=== PATIENT | female | born 1935 | race Caucasian/White ===

== ENCOUNTER 2017-04-23 11:50 | Inpatient (IN) | payer MEDICARE ==
[2017-04-23 12:36] LABS: Hemoglobin 14.4 g/dL (12.0-16.0); Mean Corpuscular HGB CONC 32.8 g/dL (32.0-36.0); Mean Corpuscular Hemoglobin 31.3 pg (27.0-31.0); Mean Corpuscular Volume 95.6 fl (81.0-99.0); Mean Platelet Volume 6.6 fL (7.4-10.4); Platelet Count 167 thou/uL (130-400); RBC Distribution Width 11.8 % (11.5-14.5); White Blood Cell (WBC) Count 4.8 thou/uL (4.8-10.8)
--- NOTE | 2017-04-23 12:37 | RAD ---
CHEST ONE VIEW: HISTORY: Dyspnea. Evaluate for pneumonia. COMPARISON: None. FINDINGS: Normal cardiac silhouette. The pulmonary vessels and hilum are normal. The costophrenic angles are clear. There is opacity of the right hemithorax, likely in the middle lobe. There is partial obscur ation of the right heart border. The right diaphragm is not obscured. Questionable nodule in the ri ght mid lung. Mild hyperinflation. No pneumothorax. IMPRESSION: 1. Right mid lung nodule. 2. Middle lobe infiltrate. Continued surveillance to ensure resolution. POS: [facility]
[2017-04-23 12:58] LABS: Band 47 % (5-11); Lymphocytes 14 % (21-51); MDiff Complete? YES; Metamyelocyte 11 % (0-0); Monocytes 2 % (0-10); Myelocyte 2 % (0-0); Neutrophil 22 % (42-75); PLT Morphology Comment Appears Adequate; Reactive Lymphocytes 2 % (0-10); Vacuoles MODERATE
[2017-04-23] MEDS ORDERED: Piperacillin/Tazobactam 4.5 GM in Sodium Chloride 0.9% 100 ML IVPB ONE (13:00)
[2017-04-23] MEDS ORDERED: Vancomycin HCl 1.25 GM in Sodium Chloride 0.9% 250 ML 250 ML IVPB SCH (13:00)
[2017-04-23 13:01] LABS: ALT (SGPT) 22 U/L (8-55); AST (SGOT) 31 U/L (5-34); Albumin 3.9 g/dL (3.4-4.8); Alkaline Phosphatase 60 U/L (40-150); Anion Gap 18 mmol/L (10-20); BUN (Urea Nitrogen) 17 mg/dL (9.8-20.1); Bilirubin, Total 0.5 mg/dL (0.2-1.2); CK (CPK) 280 U/L (29-168); Calc. Creatinine Clearance 0 mL/min (70-130); Calcium 9.1 mg/dL (7.8-10.44); Carbon Dioxide 18 mmol/L (23-31); Chloride 93 mmol/L (98-107); Estimated GFR-MDRD 65; Globulin 3.1 g/dL (2.4-3.5); Glucose 168 mg/dL (83-110); Potassium 3.6 mmol/L (3.5-5.1); Sodium 125 mmol/L (136-145)
[2017-04-23] MEDS ORDERED: Mag-Al 1200 mg/1200 mg/30 ML UDCUP PO PRN (14:08)
[2017-04-23] MEDS ORDERED: Senokot 8.6 MG TAB PO PRN (14:08)
[2017-04-23] MEDS ORDERED: Acetaminophen 325 MG TAB PO PRN (14:08)
[2017-04-23] MEDS ORDERED: Guaifenesin DM 100-10/5 ML UDCUP PO PRN (14:08)
--- NOTE | 2017-04-23 14:36 | CT ---
CT ANGIOGRAM OF CHEST: Date: 04/23/17 HISTORY: Tachycardia. Elevated D-Dimer. Patient has had a course of influenza and was on Tamiflu x10 days. COMPARISON: None. TECHNIQUE: CT angiogram of chest performed in the axial plane. Sagittal and coronal three-dimensional reformatte d images are submitted for interpretation. FINDINGS: No mediastinal mass, lymphadenopathy, or hematoma. Heart size is within normal limits. No pericardial effusion. The thoracic aorta and upper abdominal aorta have a normal caliber. No periaortic fat stra nding. Visualized upper solid organs are unremarkable. There are multifocal ground-glass nodules and ill-defined opacities throughout the lung parenchyma. T here is suspicion for possible multilobar malignancy versus atypical infection. A lifeline representatives nodu le in the right lung measures 0.8 cm. There is opacification and consolidation in the middle lobe, as well as the right lower lobe. The greatest degree of opacification is in the middle lobe, correspond ing to recent radiograph. There is no pneumothorax or pleural effusion. There are no lytic or blastic lesions in the osseous structures. Adequate contrast opacification of the pulmonary arterial system to the level of the segmental arteri es. No filling defect to suggest thromboembolism. IMPRESSION: 1. No evidence of pulmonary artery embolism to the level of the segmental arteries. 2. Consolidation in the middle lobe due to pneumonia. 3. Multifocal ground-glass opacities and nodules. Differential considerations include malignancy gem elham infection. Continued surveillance with short-term follow-up imaging in 4 weeks is recommended. POS: [facility]
--- NOTE | 2017-04-23 14:41 | HP ---
REASON FOR ADMISSION: Right lung pneumonia, sepsis. HISTORY OF PRESENT ILLNESS: The patient gives history of finishing the full course of Tamiflu yester day. She is still not feeling right. She went to [facility] [place] and was eval uated. She was given a course of steroids which is tapering along with an inhaler. She has been not feeling good for almost 10 days now. She has cough with expectoration of brown sputum. She normall y walks by herself. She has never smoked in her life. Does not have any lung issues including asthm a or COPD in the past. Her is in the hospital and is in a very critical situation and is laisha martínez admitted to hospice at present. PAST MEDICAL AND SURGICAL HISTORY: Hypertension, dyslipidemia, hypothyroidism, hysterectomy, catarac t surgery. CURRENT MEDICATIONS: She takes Premarin 0.3 mg p.o. daily, Synthroid 50 mcg p.o. daily, lisinopril w ith hydrochlorothiazide 10/12.5 mg p.o. daily, Crestor 5 mg p.o. daily, Naprosyn p.r.n. for pain. ALLERGIES: No known drug allergies. PERSONAL HISTORY: Does not abuse alcohol or drugs. No history of smoking. FAMILY HISTORY: Mother at the age of 93 years from old age. Father of cirrhosis in his 70 s and has had history of hepatitis. REVIEW OF SYSTEMS: The following complete review of systems was negative, unless otherwise mentioned in the HPI or below: Constitutional: Weight loss or gain, ability to conduct usual activities. Skin: Rash, itching. Eyes: Double vision, pain. ENT/Mouth: Nose bleeding, neck stiffness, pain, tenderness. Cardiovascular: Palpitations, dyspnea on exertion, orthopnea. Respiratory: Shortness of breath, wheezing, cough, hemoptysis, fever or night sweats. Gastrointestinal: Poor appetite, abdominal pain, heartburn, nausea, vomiting, constipation, or diarrhea. Genitourinary: Urgency, frequency, dysuria, nocturia. Musculoskeletal: Pain, swelling. Neurologic/Psychiatric: Anxiety, depression. Allergy/Immunologic: Skin rash, bleeding tendency. PHYSICAL EXAMINATION: GENERAL: The patient is an 82-year-old female who is in mild respiratory distress. VITAL SIGNS: Blood pressure 142/60, pulse 96 per minute, respiratory rate 30 per minute, temperature 99.1 degrees Fahrenheit, saturating 94% on room air. NECK: Supple, no elevated JVD. HEENT: Extraocular muscles intact. Pupils reacting to light. Oral cavity; mucous membranes are dry . No exudates or congestion. CARDIOVASCULAR: S1, S2 heard. Regular rhythm. RESPIRATORY: Air entry 1+ bilaterally. There is scattered rhonchi in the right infrascapular area. ABDOMEN: Soft, bowel sounds heard. No tenderness, rigidity or guarding. EXTREMITIES: No peripheral edema or calf tenderness. VASCULAR SYSTEM: Peripheral pulses 1+ bilateral. No ischemic ulcerations or gangrene. CENTRAL NERVOUS SYSTEM: No gross focal deficits seen. The patient is lethargic, but oriented well. PSYCHIATRIC: The patient's mood is a bit depressed, otherwise, no hallucinations or delusions. LABORATORY AND X-RAY FINDINGS: Chest x-ray done shows right middle lobe pneumonia. EKG done shows s inus rhythm at 98 beats per minute. There is frequent PACs seen. Sodium 125, serum bicarbonate 18, BUN 17, creatinine 0.8, glucose 168. Lactic acid is 2.6. Liver enzymes within normal limits. Album in is 3.9. White count of 4.8, H&H 14 and 44, platelet count 167 with 22% neutrophils and 47% bands with 14% lymphocytes and 11% metamyelocytes. CLINICAL IMPRESSION AND PLAN: The patient will be admitted to IMCU for acute respiratory failure wit h hypoxia and right lung pneumonia. The patient appears to have had a week of flu-like illness and h as completed Tamiflu and now likely has a bacterial infection with right lung pneumonia. Also, CBC s hows metamyelocytes with severe bandemia at present. We will place her on cefepime and Levaquin sonya g with normal saline at 80 mL per hour. DuoNebs along with Mucinex and Tessalon Perles. We will con tinue her Synthroid, Crestor, and hold the rest of her medications for now. Code status was discusse d with and her son at bedside and they want her to be full code for now. We will consult Dr. Beach in view of the patient likely to decompensate with history of a week of flu with current pneumonia a nd being frail at present.
[2017-04-23] MEDS ORDERED: ISOVUE-370 76%-LOCM 1 ML ONE (16:23)
--- NOTE | 2017-04-23 16:25 | CON ---
DATE OF CONSULTATION: 04/23/2017 CONSULTING PHYSICIAN: Dr. Ruiz. REASON FOR CONSULTATION: Pneumonia. HISTORY OF PRESENT ILLNESS: This is an 82-year-old female who presented to the [facility] yesterday because she was not feeling well. She was told she had influenza type B. Unfortunately , none of those records are in the computer for review at this time. She says she had just finished a full course of Tamiflu, which makes me believe. She is slightly confused in giving her history to me. She was extremely tachypneic in the emergency room, she was found to have a right middle lobe pn eumonia. She has been placed in the IMCU on broad-spectrum IV antibiotics. PAST MEDICAL HISTORY: 1. Hypertension. 2. Hyperlipidemia. 3. Hypothyroidism. PAST SURGICAL HISTORY: 1. Hysterectomy. 2. Cataract surgery. MEDICATIONS PRIOR TO ADMISSION: Premarin, Synthroid, lisinopril with hydrochlorothiazide, Crestor an d Naprosyn. ALLERGIES: None. SOCIAL HISTORY: Lifetime nonsmoker. Does not consume alcohol. FAMILY MEDICAL HISTORY: Remarkable for cirrhosis of liver in her father. REVIEW OF SYSTEMS: Difficult to ascertain because the patient is very confused at this time. PHYSICAL EXAMINATION: VITAL SIGNS: Temperature 98.9, pulse 98, respirations 36, O2 sat 96% on 3 liters and blood pressure 117/58. GENERAL: The patient is in mild respiratory distress with tachypnea. Neurologically, she moves all 4 extremities. She is alert to location and time. HEENT: Pupils react. Sclerae are anicteric. Oropharynx is dry. NECK: No adenopathy or JVD. LUNGS: She has harsh inspiratory crackles over her right chest. Left side has some crackles, but is more clear. CARDIOVASCULAR: S1 and S2, slightly tachycardic. ABDOMEN: Soft, nontender and nondistended. EXTREMITIES: Without clubbing, cyanosis or edema. LABORATORY DATA: White blood cell count 4.8, hematocrit 44, platelet count 167 with 22% neutrophils and 47% bands. D-dimer 3.54. Sodium 125, potassium 3.6, chloride 93, CO2 of 18, BUN 17, creatinine 0.8 and glucose 168. Lactate 2.6. CPK 280. Urinalysis was essentially negative. IMAGING DATA: Chest x-ray and CT were personally reviewed by me. CT shows a dense right middle lobe infiltrate. There are some early changes in the right lower lobe. ASSESSMENT: 1. Right middle lobe pneumonia. 2. Sepsis syndrome. 3. Acute hypoxic respiratory failure. PLAN: 1. The patient has been started on broad-spectrum IV antibiotics to include cefepime and Levaquin. Given recent history of fluid, I would also add vancomycin to this. 2. IV fluid resuscitation. 3. BiPAP as needed. 4. The patient remains extremely high risk for decompensation and may end up being intubated.
[2017-04-23 16:35] LABS: Lactic Acid 4.3 mmol/L (0.5-2.2)
[2017-04-23] MEDS: Sodium Chloride 0.9% 1,000 ML IV SCH ×2 (16:39→21:56)
[2017-04-23] MEDS: Benzonatate 100 MG CAP PO SCH ×2 (16:40→21:44)
[2017-04-23] MEDS ORDERED: Heparin 1,000 UNITS/ML VIAL ONE ×2 (17:10→17:11)
[2017-04-23] MEDS ORDERED: CCU Electrolyte Replacement 1 EACH FS ONE (17:15)
[2017-04-23] MEDS ORDERED: Midazolam HCl 2 mg/2 ml Vial SLOW IVP SCH (17:15)
[2017-04-23] MEDS ORDERED: Vecuronium 10 MG VIAL IVP PRN (17:15)
[2017-04-23] MEDS ORDERED: Sedation Protocol FS ONE (17:15)
[2017-04-23] MEDS ORDERED: CCU ELECTROLYTE REPLACEMENT PROTOCOL FS PRN (17:19)
[2017-04-23] MEDS ORDERED: Potassium Phosphate 9 MMOL in Sodium Chloride 0.9% 100 ML IVPB PRN (17:19)
[2017-04-23] MEDS ORDERED: Potassium Phosphate 12 MMOL in Sodium Chloride 0.9% 250 ML 250 ML IV PRN (17:19)
[2017-04-23] MEDS ORDERED: Fentanyl 20 MCG/ML 250 ML IVPB SCH (17:19)
[2017-04-23] MEDS ORDERED: Magnesium Oxide 400 MG TAB PO PRN ×2 (17:19)
[2017-04-23] MEDS ORDERED: Potassium Phosphate 15 MMOL in Sodium Chloride 0.9% 250 ML 250 ML IV PRN (17:19)
[2017-04-23] MEDS ORDERED: Morphine 2 MG/ML SYRINGE SLOW IVP PRN (17:19)
[2017-04-23] MEDS ORDERED: Potassium Chloride 20 MEQ TAB PO PRN (17:19)
[2017-04-23] MEDS ORDERED: Magnesium 2 GM/NS 0.9% 100 ML 2 GM in Premix Bag 1 BAG IVPB PRN (17:19)
[2017-04-23] MEDS ORDERED: Potassium Chloride 40 MEQ in Sodium Chloride 0.9% 250 ML 250 ML IVPB PRN (17:19)
[2017-04-23] MEDS ORDERED: DISCONTINUE PREVIOUS NARCOTIC PAIN MEDICATIONS AND BENZODIAZEPINES FS SCH (17:19)
[2017-04-23] MEDS ORDERED: Propofol 1,000 MG/100 ML VIAL IV ONE (17:39)
[2017-04-23] MEDS ORDERED: Midazolam HCl 2 mg/2 ml Vial ONE (17:43)
--- NOTE | 2017-04-23 18:32 | RAD ---
PORTABLE CHEST: Date: 04-23-17 Provided Clinical History: Cough. FINDINGS: Comparison is made with the study performed earlier the same date. Cardiac and mediastinal silhouette is unchanged in appearance. Interval placement of endotracheal tub e, the tip of which projects in the region of the thoracic inlet. Interval placement of enteric jessica ter, the tip of which is not visualized is below the diaphragm. Persistent consolidation at the right lung base. No pleural fluid or pneumothorax apparent. IMPRESSION: 1. Interval ET and enteric catheter placement as above. 2. Right basilar consolidation. POS: [facility]
[2017-04-23 18:45] LABS: Actual Bicarbonate (HCO3a) 17.7 mEq/L (22-26); Base Excess (BEa) -6.4 mEq/L (0 (+/-) 2.5); CO2 Tension 30.4 mmHg (35.0-45.0); Hematocrit-ABG 35.3 % (36.0-47.0); O2 Tension (PaO2) 81.7 mmHg (80.0-100.0); pH, Arterial 7.38 (7.35-7.45)
[2017-04-23 18:46] LABS: Calcium, Ionized 1.1 mmol/L (1.12-1.30)
[2017-04-23 18:47] LABS: Puncture Site R BRACHIAL
--- NOTE | 2017-04-23 20:08 | PRG ---
DATE OF SERVICE: 04/23/2017 About an hour after I saw the patient in consultation, she began decompensating on the intermediate c are unit. I was notified by the respiratory therapist, and then I immediately went back to see the p atient. She was breathing about 40 times a minute on BiPAP, clearly had become more altered in terms of mental status. Her [id number] was at the bedside. I spoke with the patient and her daughte r-in-law and told them that I thought we needed to be more aggressive. The patient was brought down to the CCU. She was given some Versed IV. I endotracheally intubated her with a 7.5 endotracheal tu be on the first attempt. She was placed on mechanical ventilation. Her followup x-ray demonstrated progression in the right middle lobe infiltrate. The patient will be kept on mechanical ventilation for several days. She will be kept sedated. She will continue receiving antibiotics and steroid. H er prognosis is guarded. The above encompassed 40 minutes critical care time.
[2017-04-23] MEDS ORDERED: Cefepime 1 GM in Sodium Chloride 0.9% 100 ML IVPB SCH (21:00)
[2017-04-23] MEDS ORDERED: Famotidine 20 MG TAB PO SCH (21:00)
[2017-04-23 21:29] LABS: Legionella Urinary Ag Negative (Negative); Strep pneumo Urine Ag NEGATIVE (NEGATIVE)
[2017-04-23] MEDS: Hydrocortisone Sod Succ/PF 100 mg/2 ml Vial IVP SCH ×2 (21:44→23:59)
[2017-04-23] MEDS: guaiFENesin ER 600 MG TAB PO SCH (21:44)
[2017-04-23] MEDS: Famotidine/PF 20 mg/2ml Vial SLOW IVP SCH (21:44)
[2017-04-23] MEDS: Cefepime 1 GM, Admixture Fee 1 EACH in Sterile Water 10 ML SLOW IVP SCH (22:03)
[2017-04-23] MEDS: Rosuvastatin 5 MG TAB PO SCH (22:03)
[2017-04-23] MEDS ORDERED: Hydrocortisone Sod Succ/PF 100 mg/2 ml Vial ONE (23:57)
[2017-04-24 04:35] LABS: Anion Gap 18 mmol/L (10-20); BUN (Urea Nitrogen) 14 mg/dL (9.8-20.1); Calc. Creatinine Clearance 48 mL/min (70-130); Calcium 7.5 mg/dL (7.8-10.44); Carbon Dioxide 14 mmol/L (23-31); Chloride 103 mmol/L (98-107); Estimated GFR-MDRD 62; Glucose 128 mg/dL (83-110); Potassium 2.9 mmol/L (3.5-5.1); Sodium 132 mmol/L (136-145)
[2017-04-24 04:51] LABS: Band 44 % (5-11); Hemoglobin 11.5 g/dL (12.0-16.0); Lymphocytes 23 % (21-51); MDiff Complete? YES; Mean Corpuscular HGB CONC 31.8 g/dL (32.0-36.0); Mean Corpuscular Hemoglobin 31.2 pg (27.0-31.0); Mean Platelet Volume 6.8 fL (7.4-10.4); Metamyelocyte 7 % (0-0); Monocytes 6 % (0-10); Myelocyte 5 % (0-0); Neutrophil 15 % (42-75); Platelet Count 126 thou/uL (130-400); RBC Distribution Width 11.9 % (11.5-14.5)
[2017-04-24] MEDS: Hydrocortisone Sod Succ/PF 100 mg/2 ml Vial IVP SCH ×4 (05:08→23:15)
[2017-04-24] MEDS ORDERED: Levothyroxine Sodium 50 MCG TAB PO SCH (06:00)
[2017-04-24 08:06] LABS: Actual Bicarbonate (HCO3a) 15.5 mEq/L (22-26); CO2 Tension 23.2 mmHg (35.0-45.0); Hematocrit-ABG 34.8 % (36.0-47.0); O2 Tension (PaO2) 144.6 mmHg (80.0-100.0); pH, Arterial 7.44 (7.35-7.45)
[2017-04-24 08:07] LABS: Calcium, Ionized 1.1 mmol/L (1.12-1.30)
[2017-04-24 08:08] LABS: Puncture Site RB
--- NOTE | 2017-04-24 08:14 | PRG ---
DATE OF SERVICE: 04/24/2017 Thirty-five minutes critical care time. The patient remains intubated on mechanical ventilation. She is deeply sedated. PHYSICAL EXAMINATION: VITAL SIGNS: Temperature 98.5, pulse 108, blood pressure 106/58. She is requiring no vasopressors, 24 hour intake 1370, output 820. HEENT: Sclera anicteric. Oropharynx clear. NECK: No JVD. LUNGS: Coarse rhonchi especially on the right. CARDIAC: S1, S2, slightly tachycardic without murmur. ABDOMEN: Soft, nontender, nondistended. EXTREMITIES: No clubbing, cyanosis, or edema. LABORATORY DATA: White blood cell count 2.0, hemoglobin 11.2, hematocrit 36.2, platelet count 126. ABG pending. Sodium 132, potassium 2.9, chloride 103, CO2 14, BUN 14, creatinine 0.8, glucose 128. So far cultures showed no growth to date. Chest x-ray shows a dense right middle lobe infiltrate. ASSESSMENT: 1. Post-influenza pneumonia. 2. Sepsis syndrome. 3. Acute respiratory failure requiring mechanical ventilation. 4. Severe metabolic acidosis. PLAN: 1. Will adjust IV fluids and add some bicarbonate. 2. Continue mechanical ventilation. 3. Continue broad spectrum IV antibiotics and consolidate antibiotics if cultures become positive. 4. Replace potassium. 5. Continue hydrocortisone, vitamin C and Thiamine. The patient's prognosis is guarded.
--- NOTE | 2017-04-24 08:28 | RAD ---
PORTABLE UPRIGHT FRONTAL CHEST RADIOGRAPH: Date: 04-24-17 Comparison: 04-23-17 History: Ventilated patient. FINDINGS: Endotracheal tube and nasogastric tube in place. No pneumothorax is evident. There is dense opacity in both lung bases, especially at the right. Heart and mediastinal contours ar e stable. IMPRESSION: Dense bibasilar opacity, right greater than left, suggesting infectious pneumonitis or aspiration. Th is primarily involves the right middle lobe. Follow up imaging to document resolution advised. POS: [facility]
[2017-04-24] MEDS: Sodium Bicarbonate 70 MEQ in Sodium Chloride 0.45% 1,000 ML IV SCH (08:34)
[2017-04-24] MEDS: Cefepime 1 GM, Admixture Fee 1 EACH in Sterile Water 10 ML SLOW IVP SCH ×2 (08:37→20:32)
[2017-04-24] MEDS: Famotidine/PF 20 mg/2ml Vial SLOW IVP SCH ×2 (08:37→20:22)
[2017-04-24] MEDS: Enoxaparin Sodium 40 MG/0.4 ML SYRINGE SC SCH (08:37)
[2017-04-24] MEDS: Benzonatate 100 MG CAP PO SCH ×3 (08:38→20:23)
[2017-04-24] MEDS: guaiFENesin ER 600 MG TAB PO SCH ×2 (09:08→20:23)
[2017-04-24 09:28] LABS: Potassium 3.9 mmol/L (3.5-5.1)
--- NOTE | 2017-04-24 13:55 | PDOC.PN ---
- Subjective Encounter Start Date: 04/24/17 Encounter Start Time: 07:00 Subjective: on vent, sedated - Objective Resuscitation Status: Resuscitation Status FULL:Full Resuscitation MAR Reviewed: Yes Vital Signs & Weight: Vital Signs (12 hours) Temp Pulse Resp BP Pulse Ox 04/24/17 13:25 99 99/53 L 04/24/17 12:00 98.9 F 18 04/24/17 11:04 107 H 102/64 04/24/17 10:00 30 H 04/24/17 08:00 100.4 F H 102 H 26 H 99 04/24/17 07:47 102 H 101/56 L 04/24/17 04:00 98.5 F 25 H 04/24/17 02:51 105 H 107/56 L Weight Admit Weight 132 lb Weight 132 lb 14.4 oz Most Recent Monitor Data Heart Rate from ECG 99 NIBP 99/53 NIBP BP-Mean 68 Respiration from ECG 22 SpO2 98 I&O: 04/23/17 04/24/17 04/25/17 06:59 06:59 06:59 Intake Total 1379.6 Output Total 820 212 Balance 559.6 -212 Result Diagrams: 04/24/17 03:42 04/24/17 08:48 Phys Exam - Physical Examination HEENT: sclera anicteric dry mucosa Neck: no JVD, supple Respiratory: no wheezing, no rales rhonchi+ Cardiovascular: RRR, no significant murmur Gastrointestinal: soft, no distention, positive bowel sounds Musculoskeletal: no edema, pulses present Neurological: non-focal, moves all 4 limbs Dx/Plan (1) Acute respiratory failure with hypoxia Code(s): J96.01 - ACUTE RESPIRATORY FAILURE WITH HYPOXIA Status: Acute (2) Pneumonia Code(s): J18.9 - PNEUMONIA, UNSPECIFIED ORGANISM Status: Acute Qualifiers: Pneumonia type: due to unspecified organism Laterality: bilateral (3) Sepsis Code(s): A41.9 - SEPSIS, UNSPECIFIED ORGANISM Status: Acute Qualifiers: Sepsis type: sepsis due to unspecified organism Qualified Code(s): A41.9 - Sepsis, unspecified organism (4) HTN (hypertension) Code(s): I10 - ESSENTIAL (PRIMARY) HYPERTENSION Status: Chronic Qualifiers: Hypertension type: essential hypertension Qualified Code(s): I10 - Essential (primary) hypertension (5) Hypothyroidism Code(s): E03.9 - HYPOTHYROIDISM, UNSPECIFIED Status: Chronic Qualifiers: Hypothyroidism type: unspecified Qualified Code(s): E03.9 - Hypothyroidism , unspecified (6) Dyslipidemia Code(s): E78.5 - HYPERLIPIDEMIA, UNSPECIFIED Status: Chronic - Plan is on vanc, cefepime and levaquin -: nebs, gentle iv hydration -: hydrocortisone q6h -: replace electrolytes -: will f/u, her last evening per staff (pt not aware) * . Review of Systems - Medications/Allergies Allergies/Adverse Reactions: Allergies Allergy/AdvReac Type Severity Reaction Status Date / Time No Known Allergies Allergy Verified 04/23/17 15:11 Medications: Current Medications Acetaminophen (Tylenol) 650 mg PO Q4H PRN PRN Reason: Headache/Fever or Pain Al Hydroxide/Mg Hydroxide (Maalox) 30 ml PO Q6H PRN PRN Reason: Heartburn or Indigestion Albuterol/Ipratropium (Duoneb) 3 ml NEB [id number] [facility] Last Admin: 04/24/17 13:25 Dose: 3 ml Benzonatate (Tessalon) 100 mg PO TID [facility] Last Admin: 04/24/17 08:38 Dose: Not Given Enoxaparin Sodium (Lovenox) 40 mg SC 0900 [facility] Last Admin: 04/24/17 08:37 Dose: 40 mg Famotidine (Pepcid) 20 mg SLOW IVP BID [facility] Last Admin: 04/24/17 08:37 Dose: 20 mg Guaifenesin (Mucinex) 600 mg PO Q12HR [facility] Last Admin: 04/24/17 09:08 Dose: 600 mg Guaifenesin/Dextromethorphan (Robitussin Dm) 15 ml PO Q4H PRN PRN Reason: Cough Hydrocortisone Sodium Succinate (Solu-Cortef) 50 mg IVP Q6HR [facility] Stop: 04/30/17 18:01 Last Admin: 04/24/17 11:22 Dose: 50 mg Levofloxacin 500 mg/ Device 100 mls @ 100 mls/hr IVPB Q24HR [facility] Last Admin: 04/23/17 16:45 Dose: 100 mls Cefepime HCl 1 gm/Miscellaneous Medication 1 each/ Sterile Water 10 mls @ 120 mls/hr SLOW IVP Q12HR [facility] Last Admin: 04/24/17 08:37 Dose: 10 mls Vancomycin HCl 1 gm/ Device 200 mls @ 200 mls/hr IVPB 1500 MARVIN Ascorbic Acid 1,500 mg/ Sodium (Chloride) 53 mls @ 100 mls/hr IVPB Q6HR [facility] Stop: 04/27/17 18:01 Last Admin: 04/24/17 11:22 Dose: 53 mls Thiamine HCl 200 mg/ Sodium (Chloride) 52 mls @ 100 mls/hr IVPB Q12HR [facility] Stop: 04/27/17 21:01 Last Admin: 04/24/17 08:37 Dose: 52 mls Potassium Chloride 40 meq/ (Sodium Chloride) 270 mls @ 135 mls/hr IVPB ASDIR PRN PRN Reason: FOR SERUM K+ 2.5 - 3.5 Potassium Chloride 40 meq/ (Device) 100 mls @ 50 mls/hr IVPB ASDIR PRN PRN Reason: FOR SERUM K+ 2.5 - 3.5 Magnesium Sulfate 1 gm/ Sodium (Chloride) 102 mls @ 102 mls/hr IV PRN PRN PRN Reason: MAG LEVEL 1.4 - 2.0 Magnesium Sulfate 2 gm/ Device 100 mls @ 100 mls/hr IVPB ASDIR PRN PRN Reason: MAGNESIUM < 1.4 Potassium Phosphate 9 mmol/ (Sodium Chloride) 103 mls @ 25.75 mls/hr IVPB ASDIR PRN PRN Reason: Phosphate 1.0-1.8 Potassium Phosphate 12 mmol/ (Sodium Chloride) 254 mls @ 63.5 mls/hr IV ASDIR PRN PRN Reason: Serum phosphate 0.5-0.9 Potassium Phosphate 15 mmol/ (Sodium Chloride) 255 mls @ 63.75 mls/hr IV ASDIR PRN PRN Reason: Serum Phos < 0.5 Fentanyl (Fentanyl Cadd) 250 mls @ 0 mls/hr IVPB INF MARVIN; Titrate PRN Reason: Protocol Stop: 05/23/17 17:19 Fentanyl Citrate (Fentanyl Bolus) 250 mls @ 0 mls/hr IVPB PRN PRN; As Directed PRN Reason: Breakthrough pain Stop: 05/23/17 17:19 Sodium Bicarbonate 70 meq/ (Sodium Chloride) 1,070 mls @ 75 mls/hr IV .[id number] [facility] Last Admin: 04/24/17 08:34 Dose: 1,070 mls Lorazepam (Ativan) 2 mg SLOW IVP Q2H PRN PRN Reason: Anxiety to achieve Agee 2-3 Stop: 05/23/17 17:19 Magnesium Oxide (Magnesium Oxide) 400 mg PO BIDPRN PRN PRN Reason: FOR SERUM MAG 1.4 - 2.0 Magnesium Oxide (Magnesium Oxide) 800 mg PO PRN PRN PRN Reason: FOR SERUM MAG < 1.4 Miscellaneous Medication (Pharmacy To Dose) 1 each IVPB ONE PRN PRN Reason: Pharmacy to dose Stop: 05/23/17 15:45 Miscellaneous Medication (Phos-Nak) 1 pkt PO TIDPRN PRN PRN Reason: FOR PHOS LEVEL 1.0 - 1.8 Miscellaneous Medication (Phos-Nak) 2 pkt PO TIDPRN PRN PRN Reason: FOR PHOS LEVEL 0.5 - 1.0 Morphine Sulfate (Morphine) 2 mg SLOW IVP Q2H PRN PRN Reason: Breakthrough pain Stop: 05/23/17 17:19 Ccu Electrolyte (Replacement Protocol) 0 each FS PRN PRN PRN Reason: FOR ELECTROLYTE REPLACEMENT Discontinue Previous Narcotic Pain Medications And Benzodiazepines 1 each FS .ONE [facility] Stop: 05/23/17 17:19 Potassium Chloride (K-Dur) 40 meq PO ASDIR PRN PRN Reason: FOR SERUM K+ 2.5 - 3.5 Potassium Chloride (Klor-Con) 40 meq PER TUBE ASDIR PRN PRN Reason: FOR SERUM K+ 2.5-3.5 Last Admin: 04/24/17 04:51 Dose: 40 meq Propofol (Diprivan) 1,000 mg IV INF PRN; Protocol PRN Reason: TO ACHIEVE AGEE SCORE 2-3 Stop: 05/23/17 17:19 Rosuvastatin Calcium (Crestor) 5 mg PO HS [facility] Last Admin: 04/23/17 22:03 Dose: 5 mg Senna (Senokot) 2 tab PO HSPRN PRN PRN Reason: Constipation Vecuronium [place] (Norcuron) 10 mg IVP Q30MIN PRN PRN Reason: Agitation Last Admin: 04/23/17 17:15 Dose: 10 mg
[2017-04-24] MEDS: Propofol 1,000 MG/100 ML VIAL IV PRN (14:12)
[2017-04-24] MEDS ORDERED: Vancomycin HCl 1 GM in Premix Bag 1 BAG IVPB SCH (15:00)
[2017-04-24] MEDS ORDERED: Digoxin 0.5 MG/2 ML AMP SLOW IVP PRN (16:20)
[2017-04-24] MEDS ORDERED: Lactated Ringer's 1,000 ML IV SCH ×2 (16:30→20:15)
[2017-04-24 16:59] LABS: Lactic Acid 5.7 mmol/L (0.5-2.2)
[2017-04-24 17:00] LABS: Anion Gap 15 mmol/L (10-20); BUN (Urea Nitrogen) 16 mg/dL (9.8-20.1); Calc. Creatinine Clearance 47 mL/min (70-130); Calcium 7.5 mg/dL (7.8-10.44); Carbon Dioxide 14 mmol/L (23-31); Chloride 104 mmol/L (98-107); Estimated GFR-MDRD 61; Glucose 178 mg/dL (83-110); Magnesium 1.2 mg/dL (1.6-2.6); Phosphorus 2.1 mg/dL (2.3-4.7); Potassium 3.3 mmol/L (3.5-5.1); Sodium 130 mmol/L (136-145)
[2017-04-24] MEDS ORDERED: Amiodarone In Dextrose 200 ML IVPB SCH (18:15)
[2017-04-24] MEDS ORDERED: Magnesium 2 GM/NS 0.9% 100 ML 2 GM in Premix Bag 1 BAG IVPB SCH (18:15)
[2017-04-24] MEDS: Amiodarone HCl 450 MG, Admixture Fee 1 EACH in Dextrose 5% in Water 250 ML IVPB SCH ×3 (18:51)
[2017-04-24] MEDS: Rosuvastatin 5 MG TAB PO SCH (20:31)
[2017-04-24] MEDS ORDERED: Potassium Chloride 40 MEQ in Sodium Chloride 0.9% 500 ML IVPB SCH (22:30)
[2017-04-25] MEDS: Sodium Bicarbonate 70 MEQ in Sodium Chloride 0.45% 1,000 ML IV SCH ×2 (00:37→14:07)
[2017-04-25] MEDS: Amiodarone HCl 450 MG, Admixture Fee 1 EACH in Dextrose 5% in Water 250 ML IVPB SCH ×6 (02:25→19:37)
[2017-04-25] MEDS: Propofol 1,000 MG/100 ML VIAL IV PRN ×3 (04:20→23:54)
[2017-04-25 04:56] LABS: Anion Gap 14 mmol/L (10-20); BUN (Urea Nitrogen) 17 mg/dL (9.8-20.1); Calc. Creatinine Clearance 59 mL/min (70-130); Calcium 7.6 mg/dL (7.8-10.44); Carbon Dioxide 16 mmol/L (23-31); Chloride 106 mmol/L (98-107); Estimated GFR-MDRD 72; Glucose 194 mg/dL (83-110); Potassium 4.6 mmol/L (3.5-5.1); Sodium 131 mmol/L (136-145)
[2017-04-25] MEDS: Hydrocortisone Sod Succ/PF 100 mg/2 ml Vial IVP SCH ×4 (05:19→23:54)
[2017-04-25 05:34] LABS: Band 40 % (5-11); Hemoglobin 10.4 g/dL (12.0-16.0); Lymphocytes 6 % (21-51); MDiff Complete? YES; Mean Corpuscular HGB CONC 33.1 g/dL (32.0-36.0); Mean Corpuscular Hemoglobin 31.8 pg (27.0-31.0); Mean Platelet Volume 8.1 fL (7.4-10.4); Metamyelocyte 6 % (0-0); Monocytes 6 % (0-10); Myelocyte 4 % (0-0); Neutrophil 38 % (42-75); PLT Morphology Comment Appears Adequate; Platelet Count 137 thou/uL (130-400); Red Blood Cell (RBC) Count 3.27 mill/uL (4.20-5.40); White Blood Cell (WBC) Count 9.4 thou/uL (4.8-10.8)
[2017-04-25 06:46] LABS: Magnesium 2.9 mg/dL (1.6-2.6)
[2017-04-25 07:17] LABS: Actual Bicarbonate (HCO3a) 18.7 mEq/L (22-26); Base Excess (BEa) -3.8 mEq/L (0 (+/-) 2.5); CO2 Tension 25.8 mmHg (35.0-45.0); Hematocrit-ABG 31.4 % (36.0-47.0); Hemoglobin (Hb) 10.1 g/dL (12.0-16.0); O2 Tension (PaO2) 95.7 mmHg (80.0-100.0); pH, Arterial 7.48 (7.35-7.45)
[2017-04-25 07:18] LABS: Calcium, Ionized 1.1 mmol/L (1.12-1.30); Puncture Site RR
[2017-04-25] MEDS: Benzonatate 100 MG CAP PO SCH ×3 (08:55→21:02)
[2017-04-25] MEDS: Cefepime 1 GM, Admixture Fee 1 EACH in Sterile Water 10 ML SLOW IVP SCH ×2 (09:00→21:01)
[2017-04-25] MEDS: Famotidine/PF 20 mg/2ml Vial SLOW IVP SCH (09:00)
[2017-04-25] MEDS: Enoxaparin Sodium 40 MG/0.4 ML SYRINGE SC SCH (09:00)
[2017-04-25] MEDS: guaiFENesin ER 600 MG TAB PO SCH ×2 (09:01→21:01)
--- NOTE | 2017-04-25 09:09 | PRG ---
DATE OF SERVICE: 04/25/2017 Thirty-five minutes critical care time. SUBJECTIVE: The patient has done poorly overnight. She developed atrial fibrillation with rapid beata tricular response. She also has had intermittent problems with hypotension. PHYSICAL EXAMINATION: VITAL SIGNS: On exam, her temperature is 98.7, pulse 93, blood pressure 102/57, 24-hour intake 4584, output 1309, weight 142 pounds. NEUROLOGIC: The patient will wake up and shake her head. She does interact with the family that is in the room. HEENT: Remarkable for bruise over the middle of her forehead which is old. She has the oropharyngea l endotracheal tube and gastric tube in place. NECK: No adenopathy or JVD. LUNGS: She has coarse breath sounds bilaterally with dense crackles in the right base. CARDIAC: S1, S2, is now regular, but she is requiring an amiodarone drip. ABDOMEN: Soft, nontender. She is tolerating tube feeds. EXTREMITIES: Without clubbing, cyanosis, or edema. LABORATORY DATA: White blood cell count 9.4, hemoglobin 10.4, hematocrit 31.4, platelet count 137, p H 7.48, pCO2 of 25, pO2 of 95 that is on SIMV rate 14, tidal volume 500, PEEP 5, pressure support 10, FiO2 35%. Sodium 131, potassium 4.6, chloride 106, CO2 of 16, BUN 17, creatinine 0.7, glucose 194. Last lactate was 5.7, phosphorus 1.0, magnesium 2.9. Micro: The sputum is growing out Staphylococc us aureus. Chest x-ray shows dense right-sided infiltrate which is unchanged. ASSESSMENT: 1. Acute respiratory failure that is secondary to a Staphylococcal hospital acquired, post-influenza pneumonia. 2. Sepsis syndrome. 3. Hypophosphatemia. 4. Metabolic acidosis. 5. Prerenal azotemia. 6. Paroxysmal atrial fibrillation. 7. Continued lactic acidosis. PLAN: 1. I have adjusted the patient's ventilator settings to reduce her tidal volumes somewhat. She is o verbreathing the vent and therefore I do not think dropping the respiratory rate would do much to low er her pH. 2. Continue the IV half normal saline with bicarbonate. 3. Continue the amiodarone. 4. Cardiology consultation for management of the atrial fibrillation. 5. Check echocardiogram if that has not already been performed. 6. I updated the family at the bedside. 7. The patient's prognosis is guarded.
--- NOTE | 2017-04-25 09:24 | RAD ---
ONE VIEW CHEST: COMPARISON: 04/24/17. HISTORY: Respiratory distress. Ventilated patient. FINDINGS: Portable semiupright chest demonstrates endotracheal tube and nasogastric tube which are unchanged. Stable cardiac silhouette. Persistent interstitial and alveolar opacities in the right lung and left lung base. Degree opacification in the left lung base has slightly improved. Stable opacification in the right lung base. NO pneumothorax. IMPRESSION: Persistent bibasilar infiltrates. POS: [facility]
[2017-04-25 09:48] LABS: Lactic Acid 2.8 mmol/L (0.5-2.2)
--- NOTE | 2017-04-25 12:20 | PDOC.PN ---
- Subjective Encounter Start Date: 04/25/17 Encounter Start Time: 12:05 Subjective: on vent, mild sedation - Objective Resuscitation Status: Resuscitation Status FULL:Full Resuscitation MAR Reviewed: Yes Vital Signs & Weight: Vital Signs (12 hours) Temp Pulse Resp BP 04/25/17 11:24 102 H 111/63 04/25/17 08:02 94 108/61 04/25/17 08:00 98.8 F 30 H 04/25/17 06:00 26 H 04/25/17 04:00 98.7 F 26 H 04/25/17 01:52 30 H Weight Admit Weight 132 lb Weight 142 lb 13.753 oz Most Recent Monitor Data Heart Rate from ECG 100 NIBP 112/60 NIBP BP-Mean 70 Respiration from ECG 31 SpO2 98 I&O: 04/24/17 04/25/17 04/26/17 06:59 06:59 06:59 Intake Total 1379.6 4584 Output Total 820 1309 130 Balance 559.6 3275 -130 Result Diagrams: 04/25/17 04:20 04/25/17 04:20 Phys Exam - Physical Examination HEENT: PERRLA, sclera anicteric Neck: no JVD, supple Respiratory: no wheezing rhonchi+ Cardiovascular: no significant murmur, irregular Gastrointestinal: soft, non-tender, positive bowel sounds Musculoskeletal: no edema, pulses present Neurological: non-focal, moves all 4 limbs Dx/Plan (1) Acute respiratory failure with hypoxia Code(s): J96.01 - ACUTE RESPIRATORY FAILURE WITH HYPOXIA Status: Acute (2) Pneumonia Code(s): J18.9 - PNEUMONIA, UNSPECIFIED ORGANISM Status: Acute Qualifiers: Pneumonia type: due to methicillin-sensitive Staphylococcus aureus (MSSA) Laterality: bilateral (3) Sepsis Code(s): A41.9 - SEPSIS, UNSPECIFIED ORGANISM Status: Acute Qualifiers: Sepsis type: methicillin susceptible Staphylococcus aureus Qualified Code(s ): A41.01 - Sepsis due to Methicillin susceptible Staphylococcus aureus (4) HTN (hypertension) Code(s): I10 - ESSENTIAL (PRIMARY) HYPERTENSION Status: Chronic Qualifiers: Hypertension type: essential hypertension Qualified Code(s): I10 - Essential (primary) hypertension (5) Hypothyroidism Code(s): E03.9 - HYPOTHYROIDISM, UNSPECIFIED Status: Chronic Qualifiers: Hypothyroidism type: unspecified Qualified Code(s): E03.9 - Hypothyroidism , unspecified (6) Dyslipidemia Code(s): E78.5 - HYPERLIPIDEMIA, UNSPECIFIED Status: Chronic (7) Afib Code(s): I48.91 - UNSPECIFIED ATRIAL FIBRILLATION Status: Acute - Plan is on amiodarone drip -: cefepime and vanc, await final cs of sputum -: nebs, steroids iv, gentle iv hydration -: gave updates to daughter in law at bedside -: echo * . Review of Systems - Medications/Allergies Allergies/Adverse Reactions: Allergies Allergy/AdvReac Type Severity Reaction Status Date / Time No Known Allergies Allergy Verified 04/23/17 15:11 Medications: Current Medications Acetaminophen (Tylenol) 650 mg PO Q4H PRN PRN Reason: Headache/Fever or Pain Last Admin: 04/24/17 14:07 Dose: 650 mg Al Hydroxide/Mg Hydroxide (Maalox) 30 ml PO Q6H PRN PRN Reason: Heartburn or Indigestion Albuterol/Ipratropium (Duoneb) 3 ml NEB [id number] [facility] Last Admin: 04/25/17 08:02 Dose: 3 ml Benzonatate (Tessalon) 100 mg PO TID [facility] Last Admin: 04/25/17 08:55 Dose: Not Given Digoxin (Lanoxin) 0.25 mg SLOW IVP ONE PRN PRN Reason: Cardiac Arrythmia Stop: 04/25/17 16:21 Last Admin: 04/24/17 17:02 Dose: 0.25 mg Enoxaparin Sodium (Lovenox) 40 mg SC 0900 [facility] Last Admin: 04/25/17 09:00 Dose: 40 mg Famotidine (Pepcid) 20 mg PO BID [facility] Guaifenesin (Mucinex) 600 mg PO Q12HR [facility] Last Admin: 04/25/17 09:01 Dose: 600 mg Guaifenesin/Dextromethorphan (Robitussin Dm) 15 ml PO Q4H PRN PRN Reason: Cough Hydrocortisone Sodium Succinate (Solu-Cortef) 50 mg IVP Q6HR [facility] Stop: 04/30/17 18:01 Last Admin: 04/25/17 05:19 Dose: 50 mg Cefepime HCl 1 gm/Miscellaneous Medication 1 each/ Sterile Water 10 mls @ 120 mls/hr SLOW IVP Q12HR [facility] Last Admin: 04/25/17 09:00 Dose: 10 mls Vancomycin HCl 1 gm/ Device 200 mls @ 200 mls/hr IVPB 1500 [facility] Last Admin: 04/24/17 15:43 Dose: 200 mls Ascorbic Acid 1,500 mg/ Sodium (Chloride) 53 mls @ 100 mls/hr IVPB Q6HR [facility] Stop: 04/27/17 18:01 Last Admin: 04/25/17 05:19 Dose: 53 mls Thiamine HCl 200 mg/ Sodium (Chloride) 52 mls @ 100 mls/hr IVPB Q12HR [facility] Stop: 04/27/17 21:01 Last Admin: 04/25/17 09:01 Dose: 52 mls Potassium Chloride 40 meq/ (Sodium Chloride) 270 mls @ 135 mls/hr IVPB ASDIR PRN PRN Reason: FOR SERUM K+ 2.5 - 3.5 Potassium Chloride 40 meq/ (Device) 100 mls @ 50 mls/hr IVPB ASDIR PRN PRN Reason: FOR SERUM K+ 2.5 - 3.5 Magnesium Sulfate 1 gm/ Sodium (Chloride) 102 mls @ 102 mls/hr IV PRN PRN PRN Reason: MAG LEVEL 1.4 - 2.0 Magnesium Sulfate 2 gm/ Device 100 mls @ 100 mls/hr IVPB ASDIR PRN PRN Reason: MAGNESIUM < 1.4 Last Admin: 04/24/17 17:14 Dose: 100 mls Potassium Phosphate 9 mmol/ (Sodium Chloride) 103 mls @ 25.75 mls/hr IVPB ASDIR PRN PRN Reason: Phosphate 1.0-1.8 Potassium Phosphate 12 mmol/ (Sodium Chloride) 254 mls @ 63.5 mls/hr IV ASDIR PRN PRN Reason: Serum phosphate 0.5-0.9 Potassium Phosphate 15 mmol/ (Sodium Chloride) 255 mls @ 63.75 mls/hr IV ASDIR PRN PRN Reason: Serum Phos < 0.5 Fentanyl (Fentanyl Cadd) 250 mls @ 0 mls/hr IVPB INF MARVIN; Titrate PRN Reason: Protocol Stop: 05/23/17 17:19 Fentanyl Citrate (Fentanyl Bolus) 250 mls @ 0 mls/hr IVPB PRN PRN; As Directed PRN Reason: Breakthrough pain Stop: 05/23/17 17:19 Sodium Bicarbonate 70 meq/ (Sodium Chloride) 1,070 mls @ 75 mls/hr IV .[id number] [facility] Last Admin: 04/25/17 00:37 Dose: 1,070 mls Amiodarone HCl 450 mg/Miscellaneous Medication 1 each/ Dextrose/Water 259 mls @ 0 mls/hr IVPB INF MARVIN; As Directed PRN Reason: Protocol Last Admin: 04/25/17 02:25 Dose: 259 mls Lorazepam (Ativan) 2 mg SLOW IVP Q2H PRN PRN Reason: Anxiety to achieve Agee 2-3 Stop: 05/23/17 17:19 Magnesium Oxide (Magnesium Oxide) 400 mg PO BIDPRN PRN PRN Reason: FOR SERUM MAG 1.4 - 2.0 Magnesium Oxide (Magnesium Oxide) 800 mg PO PRN PRN PRN Reason: FOR SERUM MAG < 1.4 Miscellaneous Medication (Pharmacy To Dose) 1 each IVPB ONE PRN PRN Reason: Pharmacy to dose Stop: 05/23/17 15:45 Miscellaneous Medication (Phos-Nak) 1 pkt PO TIDPRN PRN PRN Reason: FOR PHOS LEVEL 1.0 - 1.8 Miscellaneous Medication (Phos-Nak) 2 pkt PO TIDPRN PRN PRN Reason: FOR PHOS LEVEL 0.5 - 1.0 Last Admin: 04/25/17 06:43 Dose: 2 pkt Morphine Sulfate (Morphine) 2 mg SLOW IVP Q2H PRN PRN Reason: Breakthrough pain Stop: 05/23/17 17:19 Ccu Electrolyte (Replacement Protocol) 0 each FS PRN PRN PRN Reason: FOR ELECTROLYTE REPLACEMENT Discontinue Previous Narcotic Pain Medications And Benzodiazepines 1 each FS .ONE [facility] Stop: 05/23/17 17:19 Potassium Chloride (K-Dur) 40 meq PO ASDIR PRN PRN Reason: FOR SERUM K+ 2.5 - 3.5 Potassium Chloride (Klor-Con) 40 meq PER TUBE ASDIR PRN PRN Reason: FOR SERUM K+ 2.5-3.5 Last Admin: 04/24/17 17:14 Dose: 40 meq Propofol (Diprivan) 1,000 mg IV INF PRN; Protocol PRN Reason: TO ACHIEVE AGEE SCORE 2-3 Stop: 05/23/17 17:19 Last Admin: 04/25/17 04:20 Dose: 1,000 mg Rosuvastatin Calcium (Crestor) 5 mg PO HS [facility] Last Admin: 04/24/17 20:31 Dose: 5 mg Senna (Senokot) 2 tab PO HSPRN PRN PRN Reason: Constipation Vecuronium Milligan (Norcuron) 10 mg IVP Q30MIN PRN PRN Reason: Agitation Last Admin: 04/23/17 17:15 Dose: 10 mg
[2017-04-25] MEDS: Lorazepam 2 MG/ML VIAL SLOW IVP PRN ×3 (17:18→23:53)
[2017-04-25 17:53] LABS: Vancomycin, Trough 6.3 ug/mL
[2017-04-25] MEDS: Vancomycin HCl 1 GM in Premix Bag 1 BAG IVPB SCH (21:00)
[2017-04-25] MEDS: Famotidine 20 MG TAB PO SCH (21:01)
[2017-04-25] MEDS: Rosuvastatin 5 MG TAB PO SCH (21:01)
--- NOTE | 2017-04-25 22:14 | CON ---
DATE OF CONSULTATION: 04/25/2017 INDICATION FOR CONSULTATION: An 82-year-old patient with new-onset atrial fibrillation with rapid ve ntricular response. HISTORY OF PRESENT ILLNESS: This is a very unfortunate 82-year-old female who has been sick for chrissy ral days and had been seen in the emergency room a couple of times at an outpatient facility and then was finally diagnosed with pneumonia after chest x-ray showed significant infiltrates on the left si de. She is now starting to get I believe bilateral pneumonia. She developed atrial fibrillation wit h rapid ventricular response, was started on amiodarone, it since converted back to sinus rhythm and has remained stable in sinus rhythm since that time. She has had no previous history of atrial fibri llation I am aware of. Her heart rate was into an atrial fibrillation; according to the family, it i s 150-160 beats per minute and she was hypotensive, appears that she may have had some sepsis. Since being in the hospital, she is being admitted, she was at home and became more and more short of pardeep th and the family had brought her back to the hospital. Otherwise, she has been doing quite well and apparently has been diagnosed with flu as well as pneumonia. PAST MEDICAL HISTORY: Significant for hypertension, hyperlipidemia, hypothyroidism. She has had cat aract surgery, hysterectomy. MEDICATIONS PRIOR TO ADMISSION: Included lisinopril/hydrochlorothiazide, Crestor, Naprosyn, Synthroi d, Premarin. ALLERGIES: None. SOCIAL HISTORY: She does not smoke. Has no alcohol use. Her a few days ago. FAMILY HISTORY: Positive for cirrhosis in her father, otherwise no early heart disease. REVIEW OF SYSTEMS: Unobtainable at this time. The patient remains on the ventilator. PHYSICAL EXAMINATION: GENERAL: Reveals an elderly female who is in no acute distress at this time. She is intubated and s edated, was given Ativan, I believe. VITAL SIGNS: Heart rate is 100 and she is in sinus rhythm. Blood pressure 104/60, respiratory rate is 31. O2 saturation 94%. HEENT: Shows head to be normocephalic, atraumatic. She does have evidence of a contusion of the fro ntal area after a fall recently at home where she hit her head on the floor and she has been sick, ot herwise it was unremarkable. CHEST: Has bilateral scattered rales and rhonchi. CARDIOVASCULAR: Exam reveals a regular rate and rhythm. Normal S1 and S2. I cannot hear an S3 nor an S4. ABDOMEN: Soft and nontender. Positive bowel sounds are present. No palpable masses. EXTREMITIES: Show no clubbing, cyanosis or edema. Pedal pulses are present. NEUROLOGIC: The patient remains sedated. LABORATORY DATA: Shows a WBC of 9.4 previous of 2.0, most likely associated with her sepsis. Hemogl obin 10.4. Her chemistries show potassium of 4.6, creatinine is 0.77. Does not see any cardiac enzy mes. Blood sugar is also elevated anywhere between 128 and 178. She has some lactic acidosis with a lactic acid of 4.3. This appears improved now, but is still 2.8, was as high as 5.7. Chest x-ray f rom today indicates what appears to be most likely a right-sided pneumonia with minimal changes on th e left. Her EKG shows a normal sinus rhythm with no acute changes. PRESENT MEDICATIONS: Include Digoxin, which is given on the one-time basis. She is on Lovenox, Pepc id 20 mg b.i.d. She is on decongestants in the form of guaifenesin nebulizer treatments. She is on levofloxacin, Ativan, magnesium. She has been given potassium for hypokalemia. She remains on propo fol drip. She is on Crestor. Thiamine has been given and vancomycin. She is also on IV amiodarone. I would continue this at this time. IMPRESSION: 1. New-onset atrial fibrillation with rapid ventricular response which has converted back to sinus r hythm with the use of amiodarone. I will continue this medication at this time. She is n.p.o. She has an NG tube in and remains on the ventilator. The rate is under reasonable control. We will cont inue the same medications. Can always add further digoxin as needed for rate control. I suspect she will improve the rate and once the infection is improved. 2. Pneumonia involving the right upper, mid and lower lobes. She will be continued on her medicatio ns. 3. Hypertension. Blood pressure is under very good control at this time. 4. Dyslipidemia. At this time, we will hold those medications. She can resume them once extubated. Further care of the patient will be determined by Dr. Giordano when he visits with the patient christin madrid
[2017-04-26] MEDS: Sodium Bicarbonate 70 MEQ in Sodium Chloride 0.45% 1,000 ML IV SCH (02:45)
[2017-04-26] MEDS: Hydrocortisone Sod Succ/PF 100 mg/2 ml Vial IVP SCH ×3 (05:44→17:56)
[2017-04-26] MEDS: Propofol 1,000 MG/100 ML VIAL IV PRN ×3 (05:44→17:57)
[2017-04-26 06:40] LABS: Anion Gap 14 mmol/L (10-20); BUN (Urea Nitrogen) 20 mg/dL (9.8-20.1); Calc. Creatinine Clearance 67 mL/min (70-130); Calcium 7.6 mg/dL (7.8-10.44); Carbon Dioxide 20 mmol/L (23-31); Chloride 104 mmol/L (98-107); Estimated GFR-MDRD 79; Glucose 151 mg/dL (83-110); Potassium 4.1 mmol/L (3.5-5.1); Sodium 134 mmol/L (136-145)
[2017-04-26 06:41] LABS: Lactic Acid 2.5 mmol/L (0.5-2.2)
[2017-04-26 06:48] LABS: Hemoglobin 10.5 g/dL (12.0-16.0); Mean Corpuscular HGB CONC 33.6 g/dL (32.0-36.0); Mean Corpuscular Hemoglobin 32.1 pg (27.0-31.0); Mean Corpuscular Volume 95.5 fl (81.0-99.0); Mean Platelet Volume 7.4 fL (7.4-10.4); Platelet Count 157 thou/uL (130-400); Red Blood Cell (RBC) Count 3.28 mill/uL (4.20-5.40)
[2017-04-26 07:31] LABS: Band 44 % (5-11); Lymphocytes 5 % (21-51); MDiff Complete? YES; Monocytes 4 % (0-10); Neutrophil 46 % (42-75); PLT Morphology Comment Appears Adequate; Reactive Lymphocytes 1 % (0-10); Toxic Granulation SLIGHT; Vacuoles SLIGHT
[2017-04-26 08:04] LABS: Actual Bicarbonate (HCO3a) 22.9 mEq/L (22-26); CO2 Tension 29.8 mmHg (35.0-45.0); O2 Tension (PaO2) 73.3 mmHg (80.0-100.0)
[2017-04-26 08:05] LABS: Hematocrit-ABG 21.4 % (36.0-47.0); Hemoglobin (Hb) 7.6 g/dL (12.0-16.0)
[2017-04-26 08:06] LABS: Puncture Site RRA
--- NOTE | 2017-04-26 08:06 | PRG ---
DATE OF SERVICE: 04/26/2017 Ms. Lei is currently intubated and sedated. Heart rate appears more stable. PHYSICAL EXAMINATION: VITAL SIGNS: Blood pressure 101/52, pulse 82, temperature 99.1. LUNGS: Rhonchi and rales bilaterally. CARDIAC: Regular rate and rhythm. ABDOMEN: Soft, nontender, nondistended. EXTREMITIES: No edema. NEURO: She is currently intubated and sedated. PERTINENT LABORATORY DATA: Hemoglobin 10.5, creatinine 0.7. IMPRESSION: 1. Atrial fibrillation. 2. Bilateral pneumonia. RECOMMENDATIONS: Add p.o. amiodarone to IV Cardizem to maintain sinus rhythm. She is back in sinu s now, but given underlying condition is likely to regress. Continue antibiotic therapy and vent sup port.
[2017-04-26] MEDS ORDERED: Furosemide 40 MG/4 ML VIAL SLOW IVP SCH (08:30)
--- NOTE | 2017-04-26 08:38 | PRG ---
DATE OF SERVICE: 04/26/2017 Thirty-five minutes critical care time. Ms. Lei remains intubated on mechanical ventilation. She will awaken when sedation is lightened. PHYSICAL EXAMINATION: VITAL SIGNS: On exam her temperature is 99.1 with a T-max of 99.1, pulse 80, blood pressure 100/66. She continues on an amiodarone drip. Total intake for 24 hours 4015, output 1710. HEENT: Unremarkable. Sclerae are anicteric. Pupils reactive. NECK: No adenopathy, no JVD. CHEST: Coarse rhonchi bilaterally. CARDIOVASCULAR: S1 and S2 now regular without murmur. ABDOMEN: Soft, nontender, nondistended. EXTREMITIES: No clubbing, cyanosis. She has trace edema. LABORATORY DATA: White blood cell count 11, hemoglobin 10, hematocrit 31.3, platelet count 157, pH 7 .50, pCO2 of 29, PO2 of 73 on SIMV rate 14, tidal volume 400, PEEP 5, pressure support 10, FiO2 30%. Sodium 134, potassium 4.1, chloride 104, CO2 20, BUN 20, creatinine 0.7, glucose 151. ASSESSMENT: 1. Acute respiratory failure requiring mechanical ventilation. This is secondary to methicillin-res istant Staphylococcus aureus pneumonia. 2. Sepsis syndrome. 3. Status post influenza. 4. Metabolic acidosis. 5. Paroxysmal atrial fibrillation. 6. Prerenal azotemia. 7. Improved lactic acidosis. RECOMMENDATIONS: 1. Continue mechanical ventilation at present settings. 2. Decrease the IV fluids and try to diurese the patient a little bit to see if we can get some of t he excess volume off. 3. I would anticipate her being on the ventilator for several more days and her prognosis remains gu arded. 4. I have communicated with the patient's daughter who is at the bedside.
[2017-04-26] MEDS: Vancomycin HCl 1 GM in Premix Bag 1 BAG IVPB SCH ×2 (09:00→20:09)
[2017-04-26] MEDS: Enoxaparin Sodium 40 MG/0.4 ML SYRINGE SC SCH (09:02)
[2017-04-26] MEDS: Benzonatate 100 MG CAP PO SCH ×3 (09:02→20:10)
[2017-04-26] MEDS: Amiodarone 200 MG TAB PO SCH ×2 (09:02→20:09)
[2017-04-26] MEDS: guaiFENesin ER 600 MG TAB PO SCH ×2 (09:03→20:10)
[2017-04-26] MEDS: Famotidine 20 MG TAB PO SCH ×2 (09:03→20:10)
[2017-04-26] MEDS: Lorazepam 2 MG/ML VIAL SLOW IVP PRN ×2 (09:12→11:21)
--- NOTE | 2017-04-26 09:18 | RAD ---
AP VIEW OF CHEST: Date: 04/26/16 INDICATION: Intubation. COMPARISON: Prior exam dated 04/25/17. FINDINGS: Stable right lower lobe pneumonia. Superimposed on chronic lung changes Gastric catheter and ET tube are unchanged. No pneumothorax is evident. IMPRESSION: Stable exam. POS: LUDIN
[2017-04-26] MEDS: Sodium Bicarbonate 50 MEQ in Sodium Chloride 0.45% 1,000 ML IV SCH (09:59)
--- NOTE | 2017-04-26 10:51 | SPC ---
ULTRASOUND AND RADIOGRAPHIC PICC LINE PLACEMENT: COMPARISON: None. FINDINGS: The attempt for a PICC line was done at the patient's bedside. The right arm was prepped and draped in normal sterile fashion. The only vein patent on the left was a brachial vein. The brachial vein was accessed using a micropuncture set. A wire was placed and advanced to the level of the axilla fo r which there was an occlusion or stenosis for which a wire could not be passed. IMPRESSION: The wire was unable to be passed through the left axillary vein stenosis or thrombosis. The right ar m will be attempted 04/26/17 for which the midline will be exchanged over a wire for a PICC line. The right arm was already checked for patent veins and there are patent right brachial veins on the righ t arm. POS: BEL
--- NOTE | 2017-04-26 12:33 | PDOC.PN ---
- Subjective Encounter Start Date: 04/26/17 Encounter Start Time: 11:30 Subjective: on vent, sedated -: is breathing around 30/min -: daughter in law at bedside - Objective Resuscitation Status: Resuscitation Status FULL:Full Resuscitation MAR Reviewed: Yes Vital Signs & Weight: Vital Signs (12 hours) Temp Pulse Resp BP Pulse Ox 04/26/17 12:14 86 117/88 04/26/17 07:47 82 101/52 L 04/26/17 07:14 99.1 F 84 34 H 94 L 04/26/17 06:00 34 H 04/26/17 04:00 99.1 F 32 H 04/26/17 02:00 32 H Weight Admit Weight 132 lb Weight 150 lb 9.211 oz Most Recent Monitor Data Heart Rate from ECG 86 NIBP 117/68 NIBP BP-Mean 91 Respiration from ECG 35 SpO2 95 I&O: 04/25/17 04/26/17 04/27/17 06:59 06:59 06:59 Intake Total 4584 4015 Output Total 1309 1710 50 Balance 3275 2305 -50 Result Diagrams: 04/26/17 05:35 04/26/17 05:35 Phys Exam - Physical Examination HEENT: PERRLA, moist MMs Neck: no JVD, supple Respiratory: no rales coarse rales+ b/l Cardiovascular: no significant murmur, irregular Gastrointestinal: soft, non-tender, positive bowel sounds Musculoskeletal: pulses present, edema present Neurological: non-focal, moves all 4 limbs Dx/Plan (1) Acute respiratory failure with hypoxia Code(s): J96.01 - ACUTE RESPIRATORY FAILURE WITH HYPOXIA Status: Acute (2) Pneumonia Code(s): J18.9 - PNEUMONIA, UNSPECIFIED ORGANISM Status: Acute Qualifiers: Pneumonia type: due to methicillin-resistant Staphylococcus aureus (MRSA) Laterality: bilateral (3) Sepsis Code(s): A41.9 - SEPSIS, UNSPECIFIED ORGANISM Status: Acute Qualifiers: Sepsis type: methicillin susceptible Staphylococcus aureus Qualified Code(s ): A41.01 - Sepsis due to Methicillin susceptible Staphylococcus aureus (4) HTN (hypertension) Code(s): I10 - ESSENTIAL (PRIMARY) HYPERTENSION Status: Chronic Qualifiers: Hypertension type: essential hypertension Qualified Code(s): I10 - Essential (primary) hypertension (5) Hypothyroidism Code(s): E03.9 - HYPOTHYROIDISM, UNSPECIFIED Status: Chronic Qualifiers: Hypothyroidism type: unspecified Qualified Code(s): E03.9 - Hypothyroidism , unspecified (6) Dyslipidemia Code(s): E78.5 - HYPERLIPIDEMIA, UNSPECIFIED Status: Chronic (7) Afib Code(s): I48.91 - UNSPECIFIED ATRIAL FIBRILLATION Status: Acute (8) Chronic anemia Code(s): D64.9 - ANEMIA, UNSPECIFIED Status: Chronic - Plan is on vanc and levaquin -: nebs, solucortef 50mg q6h -: amiodarone oral -: deconditioning -: family aware of guarded prognosis * . Review of Systems - Medications/Allergies Allergies/Adverse Reactions: Allergies Allergy/AdvReac Type Severity Reaction Status Date / Time No Known Allergies Allergy Verified 04/23/17 15:11 Medications: Current Medications Acetaminophen (Tylenol) 650 mg PO Q4H PRN PRN Reason: Headache/Fever or Pain Last Admin: 04/24/17 14:07 Dose: 650 mg Al Hydroxide/Mg Hydroxide (Maalox) 30 ml PO Q6H PRN PRN Reason: Heartburn or Indigestion Albuterol/Ipratropium (Duoneb) 3 ml NEB [id number] [facility] Last Admin: 04/26/17 07:46 Dose: 3 ml Amiodarone HCl (Cordarone) 400 mg PO BID [facility] Last Admin: 04/26/17 09:02 Dose: 400 mg Benzonatate (Tessalon) 100 mg PO TID [facility] Last Admin: 04/26/17 09:02 Dose: 100 mg Enoxaparin Sodium (Lovenox) 40 mg SC 0900 [facility] Last Admin: 04/26/17 09:02 Dose: 40 mg Famotidine (Pepcid) 20 mg PO BID [facility] Last Admin: 04/26/17 09:03 Dose: 20 mg Guaifenesin (Mucinex) 600 mg PO Q12HR [facility] Last Admin: 04/26/17 09:03 Dose: 600 mg Guaifenesin/Dextromethorphan (Robitussin Dm) 15 ml PO Q4H PRN PRN Reason: Cough Hydrocortisone Sodium Succinate (Solu-Cortef) 50 mg IVP Q6HR [facility] Stop: 04/30/17 18:01 Last Admin: 04/26/17 11:23 Dose: 50 mg Ascorbic Acid 1,500 mg/ Sodium (Chloride) 53 mls @ 100 mls/hr IVPB Q6HR [facility] Stop: 04/27/17 18:01 Last Admin: 04/26/17 11:52 Dose: 53 mls Thiamine HCl 200 mg/ Sodium (Chloride) 52 mls @ 100 mls/hr IVPB Q12HR [facility] Stop: 04/27/17 21:01 Last Admin: 04/26/17 09:03 Dose: 52 mls Potassium Chloride 40 meq/ (Sodium Chloride) 270 mls @ 135 mls/hr IVPB ASDIR PRN PRN Reason: FOR SERUM K+ 2.5 - 3.5 Potassium Chloride 40 meq/ (Device) 100 mls @ 50 mls/hr IVPB ASDIR PRN PRN Reason: FOR SERUM K+ 2.5 - 3.5 Magnesium Sulfate 1 gm/ Sodium (Chloride) 102 mls @ 102 mls/hr IV PRN PRN PRN Reason: MAG LEVEL 1.4 - 2.0 Magnesium Sulfate 2 gm/ Device 100 mls @ 100 mls/hr IVPB ASDIR PRN PRN Reason: MAGNESIUM < 1.4 Last Admin: 04/24/17 17:14 Dose: 100 mls Potassium Phosphate 9 mmol/ (Sodium Chloride) 103 mls @ 25.75 mls/hr IVPB ASDIR PRN PRN Reason: Phosphate 1.0-1.8 Potassium Phosphate 12 mmol/ (Sodium Chloride) 254 mls @ 63.5 mls/hr IV ASDIR PRN PRN Reason: Serum phosphate 0.5-0.9 Potassium Phosphate 15 mmol/ (Sodium Chloride) 255 mls @ 63.75 mls/hr IV ASDIR PRN PRN Reason: Serum Phos < 0.5 Fentanyl (Fentanyl Cadd) 250 mls @ 0 mls/hr IVPB INF [facility]; Titrate PRN Reason: Protocol Stop: 05/23/17 17:19 Fentanyl Citrate (Fentanyl Bolus) 250 mls @ 0 mls/hr IVPB PRN PRN; As Directed PRN Reason: Breakthrough pain Stop: 05/23/17 17:19 Amiodarone HCl 450 mg/Miscellaneous Medication 1 each/ Dextrose/Water 259 mls @ 0 mls/hr IVPB INF [facility]VIN; As Directed PRN Reason: Protocol Last Admin: 04/25/17 19:37 Dose: 259 mls Vancomycin HCl 1 gm/ Device 200 mls @ 200 mls/hr IVPB 0800,2000 [facility] Last Admin: 04/26/17 09:00 Dose: 200 mls Sodium Bicarbonate 50 meq/ (Sodium Chloride) 1,050 mls @ 75 mls/hr IV .Q14H [facility] Last Admin: 04/26/17 09:59 Dose: 1,050 mls Levofloxacin 500 mg/ Device 100 mls @ 100 mls/hr IVPB 1000 [facility] Last Admin: 04/26/17 10:11 Dose: 100 mls Lorazepam (Ativan) 2 mg SLOW IVP Q2H PRN PRN Reason: Anxiety to achieve Agee 2-3 Stop: 05/23/17 17:19 Last Admin: 04/26/17 11:21 Dose: 2 mg Magnesium Oxide (Magnesium Oxide) 400 mg PO BIDPRN PRN PRN Reason: FOR SERUM MAG 1.4 - 2.0 Magnesium Oxide (Magnesium Oxide) 800 mg PO PRN PRN PRN Reason: FOR SERUM MAG < 1.4 Miscellaneous Medication (Pharmacy To Dose) 1 each IVPB ONE PRN PRN Reason: Pharmacy to dose Stop: 05/23/17 15:45 Miscellaneous Medication (Phos-Nak) 1 pkt PO TIDPRN PRN PRN Reason: FOR PHOS LEVEL 1.0 - 1.8 Miscellaneous Medication (Phos-Nak) 2 pkt PO TIDPRN PRN PRN Reason: FOR PHOS LEVEL 0.5 - 1.0 Last Admin: 04/25/17 06:43 Dose: 2 pkt Morphine Sulfate (Morphine) 2 mg SLOW IVP Q2H PRN PRN Reason: Breakthrough pain Stop: 05/23/17 17:19 Ccu Electrolyte (Replacement Protocol) 0 each FS PRN PRN PRN Reason: FOR ELECTROLYTE REPLACEMENT Discontinue Previous Narcotic Pain Medications And Benzodiazepines 1 each FS .ONE [facility] Stop: 05/23/17 17:19 Potassium Chloride (K-Dur) 40 meq PO ASDIR PRN PRN Reason: FOR SERUM K+ 2.5 - 3.5 Potassium Chloride (Klor-Con) 40 meq PER TUBE ASDIR PRN PRN Reason: FOR SERUM K+ 2.5-3.5 Last Admin: 04/24/17 17:14 Dose: 40 meq Propofol (Diprivan) 1,000 mg IV INF PRN; Protocol PRN Reason: TO ACHIEVE AGEE SCORE 2-3 Stop: 05/23/17 17:19 Last Admin: 04/26/17 10:39 Dose: 1,000 mg Rosuvastatin Calcium (Crestor) 5 mg PO HS [facility] Last Admin: 04/25/17 21:01 Dose: 5 mg Senna (Senokot) 2 tab PO HSPRN PRN PRN Reason: Constipation
--- NOTE | 2017-04-26 13:01 | SPC ---
RIGHT UPPER EXTREMITY PICC PLACEMENT: History: Pneumonia. FINDINGS: External portion of the right upper arm midline venous catheter was prepped. Catheter was ligated for access. Guidewire was placed to hold position. A 5 Yoruba dual-lumen PICC was placed so that the tip lies at the level of the superior vena cava. The catheter was flushed and secured externally. Patien t tolerated the procedure well. IMPRESSION: Technically successful right upper extremity PICC placement. Catheter is now ready for use. POS: LUDIN
[2017-04-26] MEDS: Amiodarone HCl 450 MG, Admixture Fee 1 EACH in Dextrose 5% in Water 250 ML IVPB SCH ×3 (15:57)
[2017-04-26] MEDS: Rosuvastatin 5 MG TAB PO SCH (20:09)
[2017-04-27] MEDS: Hydrocortisone Sod Succ/PF 100 mg/2 ml Vial IVP SCH ×4 (00:07→21:01)
--- NOTE | 2017-04-27 00:15 | EKG ---
Test Reason : Blood Pressure : / mmHG Vent. Rate : 119 BPM Atrial Rate : 133 BPM P-R Int : 000 ms QRS Dur : 070 ms QT Int : 264 ms P-R-T Axes : 000 041 039 degrees QTc Int : 371 ms Atrial fibrillation with rapid ventricular response Low voltage QRS Abnormal ECG When compared with ECG of 23-APR-2017 12:11, (Unconfirmed) Atrial fibrillation has replaced Sinus rhythm Non-specific change in ST segment in Lateral leads Nonspecific T wave abnormality no longer evident in Lateral leads Confirmed by Florencio GONZALEZ ([id number]) on 04/27/2017 12:15:38 AM Referred By: CHRISTI Confirmed By:Florencio GONZALEZ
[2017-04-27] MEDS: Propofol 1,000 MG/100 ML VIAL IV PRN ×3 (00:37→11:55)
[2017-04-27] MEDS: Sodium Bicarbonate 50 MEQ in Sodium Chloride 0.45% 1,000 ML IV SCH (01:18)
[2017-04-27] MEDS: Lorazepam 2 MG/ML VIAL SLOW IVP PRN (04:17)
[2017-04-27 04:34] LABS: Lactic Acid 2.5 mmol/L (0.5-2.2)
[2017-04-27 04:37] LABS: Band 25 % (5-11); Hemoglobin 9.9 g/dL (12.0-16.0); Lymphocytes 13 % (21-51); MDiff Complete? YES; Mean Corpuscular HGB CONC 33.5 g/dL (32.0-36.0); Mean Corpuscular Volume 95.6 fl (81.0-99.0); Mean Platelet Volume 6.9 fL (7.4-10.4); Metamyelocyte 2 % (0-0); Monocytes 2 % (0-10); Myelocyte 1 % (0-0); Neutrophil 57 % (42-75); PLT Morphology Comment Appears Adequate; Platelet Count 168 thou/uL (130-400); White Blood Cell (WBC) Count 12.5 thou/uL (4.8-10.8)
[2017-04-27 04:38] LABS: Anion Gap 12 mmol/L (10-20); BUN (Urea Nitrogen) 24 mg/dL (9.8-20.1); Calc. Creatinine Clearance 63 mL/min (70-130); Calcium 7.3 mg/dL (7.8-10.44); Carbon Dioxide 27 mmol/L (23-31); Chloride 98 mmol/L (98-107); Estimated GFR-MDRD 74; Glucose 173 mg/dL (83-110); Potassium 3.2 mmol/L (3.5-5.1); Sodium 134 mmol/L (136-145)
[2017-04-27 07:13] LABS: Vancomycin, Trough 22.7 ug/mL
[2017-04-27] MEDS: Vancomycin HCl 1 GM in Premix Bag 1 BAG IVPB SCH (07:13)
[2017-04-27 08:16] LABS: pH, Arterial 7.52 (7.35-7.45)
[2017-04-27 08:17] LABS: Actual Bicarbonate (HCO3a) 26.6 mEq/L (22-26); Base Excess (BEa) 2.9 mEq/L (0 (+/-) 2.5); CO2 Tension 31.7 mmHg (35.0-45.0); Hematocrit-ABG 31.1 % (36.0-47.0); Hemoglobin (Hb) 9.4 g/dL (12.0-16.0); O2 Tension (PaO2) 65.8 mmHg (80.0-100.0)
[2017-04-27 08:18] LABS: ALV-art Gradient 108.475 (0-20); Puncture Site RRA
--- NOTE | 2017-04-27 08:55 | RAD ---
SINGLE VIEW CHEST: Date: 04/27/17 COMPARISON: 04/26/17. HISTORY: Ventilated patient with respiratory failure. FINDINGS: Single view of the chest shows a normal sized cardiomediastinal silhouette. The lines and tubes are u nchanged in position. A new right upper extremity PICC line is seen with its tip in the superior vena cava. There are stable infiltrates in the bilateral lower lobes. IMPRESSION: Stable multifocal pneumonia. POS: OFF
--- NOTE | 2017-04-27 09:12 | PRG ---
DATE OF SERVICE: 04/27/2017 This is a 40 minutes critical care time. SUBJECTIVE: Ms. Lei remains intubated on mechanical ventilation. There have been no big changes overnight. PHYSICAL EXAMINATION: VITAL SIGNS: Her temperature is 98.7 with no fever overnight, pulse 82, blood pressure 120/66. A 24 hour intake is 4108, output 2290, weight 155 pounds which is approximately 23 pounds over her admiss ion weight. HEENT: Pupils react. Sclerae are anicteric. Oropharynx dry. NECK: No JVD. LUNGS: Coarse rhonchi bilaterally. CARDIOVASCULAR: S1, S2 regular. ABDOMEN: Soft, nontender, nondistended. She is tolerating tube feeds. EXTREMITIES: No clubbing, cyanosis. She has edema in her arms and legs. LABORATORY DATA AND X-RAY FINDINGS: Sodium 134, potassium 3.2, chloride 98, CO2 27, BUN 24, creatini ne 0.7, glucose 173. White blood cell count 12.5, hemoglobin 9.9, hematocrit 29.6, platelet count 16 8. Cultures; she has MRSA growing from her sputum. Chest x-ray shows no change in the bilateral inf iltrates. ASSESSMENT: 1. Methicillin resistant Staphylococcus aureus pneumonia. 2. Acute respiratory failure requiring mechanical ventilation. 3. Mild hypokalemia. 4. Metabolic acidosis, which has been corrected. 5. Paroxysmal atrial fibrillation. 6. Slight lactic acidosis. PLAN: 1. The patient will be converted over to a Versed drip as I anticipate her being on mechanical venti lation much longer than this. 2. Follow up ABG result from today. 3. Discontinue the bicarbonate drip. 4. Discontinue IV fluids. 5. Updated the family.
[2017-04-27] MEDS: Amiodarone 200 MG TAB PO SCH ×2 (09:27→21:01)
[2017-04-27] MEDS: Benzonatate 100 MG CAP PO SCH ×3 (09:27→21:01)
[2017-04-27] MEDS: Enoxaparin Sodium 40 MG/0.4 ML SYRINGE SC SCH (09:28)
[2017-04-27] MEDS: guaiFENesin ER 600 MG TAB PO SCH ×2 (09:28→21:01)
[2017-04-27] MEDS: Famotidine 20 MG TAB PO SCH ×2 (09:28→21:02)
--- NOTE | 2017-04-27 14:59 | PRG ---
DATE OF SERVICE: 04/27/2017 SUBJECTIVE: Ms. Lei is intubated and sedated. She continues to be in sinus rhythm. OBJECTIVE: VITAL SIGNS: Pulse 85, respirations 20 and blood pressure 120/68. LUNGS: Clear to auscultation. HEART: Regular rate and rhythm. ABDOMEN: Soft, nontender and nondistended. EXTREMITIES: No edema. IMPRESSION: 1. Atrial fibrillation. 2. Community-acquired pneumonia. RECOMMENDATIONS: We will DC IV amiodarone after bag is empty. Continue p.o. amiodarone for 1 month and DC. Continue antibiotic therapy and vent support.
--- NOTE | 2017-04-27 15:47 | PDOC.PN ---
- Subjective Encounter Start Date: 04/27/17 Encounter Start Time: 13:00 Subjective: on vent, sedation+, not awake -: still breathing around 30/min on vent - Objective Resuscitation Status: Resuscitation Status FULL:Full Resuscitation MAR Reviewed: Yes Vital Signs & Weight: Vital Signs (12 hours) Temp Pulse Resp BP Pulse Ox 04/27/17 15:29 83 120/68 04/27/17 13:31 85 26 H 96 04/27/17 12:00 98.7 F 32 H 04/27/17 11:49 86 108/55 L 04/27/17 10:00 31 H 04/27/17 09:00 99.0 F 04/27/17 08:00 99.0 F 85 35 H 94 L 04/27/17 07:51 80 117/62 04/27/17 07:50 80 32 H 93 L 04/27/17 06:00 37 H 04/27/17 04:00 98.7 F 35 H Weight Admit Weight 132 lb Weight 155 lb 13.869 oz Most Recent Monitor Data Heart Rate from ECG 89 NIBP 120/68 NIBP BP-Mean 84 Respiration from ECG 32 SpO2 96 I&O: 04/26/17 04/27/17 04/28/17 06:59 06:59 06:59 Intake Total 4015 4108 140 Output Total 1710 2290 670 Balance 2305 1818 -530 Result Diagrams: 04/27/17 03:45 04/27/17 03:45 Additional Labs: Accuchecks 04/26/17 17:29 POC Glucose 113 H Phys Exam - Physical Examination HEENT: moist MMs, sclera anicteric Neck: no JVD, supple Respiratory: no wheezing, no rales Cardiovascular: RRR, no significant murmur Gastrointestinal: soft, non-tender, positive bowel sounds Musculoskeletal: pulses present, edema present Neurological: non-focal Dx/Plan (1) Acute respiratory failure with hypoxia Code(s): J96.01 - ACUTE RESPIRATORY FAILURE WITH HYPOXIA Status: Acute (2) Pneumonia Code(s): J18.9 - PNEUMONIA, UNSPECIFIED ORGANISM Status: Acute Qualifiers: Pneumonia type: due to methicillin-resistant Staphylococcus aureus (MRSA) Laterality: bilateral (3) Sepsis Code(s): A41.9 - SEPSIS, UNSPECIFIED ORGANISM Status: Acute Qualifiers: Sepsis type: methicillin susceptible Staphylococcus aureus Qualified Code(s ): A41.01 - Sepsis due to Methicillin susceptible Staphylococcus aureus (4) HTN (hypertension) Code(s): I10 - ESSENTIAL (PRIMARY) HYPERTENSION Status: Chronic Qualifiers: Hypertension type: essential hypertension Qualified Code(s): I10 - Essential (primary) hypertension (5) Hypothyroidism Code(s): E03.9 - HYPOTHYROIDISM, UNSPECIFIED Status: Chronic Qualifiers: Hypothyroidism type: unspecified Qualified Code(s): E03.9 - Hypothyroidism , unspecified (6) Dyslipidemia Code(s): E78.5 - HYPERLIPIDEMIA, UNSPECIFIED Status: Chronic (7) Afib Code(s): I48.91 - UNSPECIFIED ATRIAL FIBRILLATION Status: Acute (8) Chronic anemia Code(s): D64.9 - ANEMIA, UNSPECIFIED Status: Chronic - Plan is on amiodarone -: levaquin and vanc -: prognosis guarded -: nebs, sedation -: will likely need central line with edema of extremities beginning to form * . Review of Systems - Medications/Allergies Allergies/Adverse Reactions: Allergies Allergy/AdvReac Type Severity Reaction Status Date / Time No Known Allergies Allergy Verified 04/23/17 15:11 Medications: Current Medications Acetaminophen (Tylenol) 650 mg PO Q4H PRN PRN Reason: Headache/Fever or Pain Last Admin: 04/24/17 14:07 Dose: 650 mg Al Hydroxide/Mg Hydroxide (Maalox) 30 ml PO Q6H PRN PRN Reason: Heartburn or Indigestion Albuterol/Ipratropium (Duoneb) 3 ml NEB [id number] [facility] Last Admin: 04/27/17 13:31 Dose: 3 ml Amiodarone HCl (Cordarone) 400 mg PO BID [facility] Last Admin: 04/27/17 09:27 Dose: 400 mg Benzonatate (Tessalon) 100 mg PO TID [facility] Last Admin: 04/27/17 09:27 Dose: 100 mg Enoxaparin Sodium (Lovenox) 40 mg SC 0900 [facility] Last Admin: 04/27/17 09:28 Dose: 40 mg Famotidine (Pepcid) 20 mg PO BID [facility] Last Admin: 04/27/17 09:28 Dose: 20 mg Guaifenesin (Mucinex) 600 mg PO Q12HR [facility] Last Admin: 01/26/18 09:28 Dose: 600 mg Guaifenesin/Dextromethorphan (Robitussin Dm) 15 ml PO Q4H PRN PRN Reason: Cough Hydrocortisone Sodium Succinate (Solu-Cortef) 50 mg IVP Q12HR [facility] Stop: 05/04/17 09:01 Last Admin: 04/27/17 09:28 Dose: 50 mg Ascorbic Acid 1,500 mg/ Sodium (Chloride) 53 mls @ 100 mls/hr IVPB Q6HR [facility] Stop: 04/27/17 18:01 Last Admin: 04/27/17 12:32 Dose: 53 mls Thiamine HCl 200 mg/ Sodium (Chloride) 52 mls @ 100 mls/hr IVPB Q12HR [facility] Stop: 04/27/17 21:01 Last Admin: 04/27/17 09:28 Dose: 52 mls Potassium Chloride 40 meq/ (Sodium Chloride) 270 mls @ 135 mls/hr IVPB ASDIR PRN PRN Reason: FOR SERUM K+ 2.5 - 3.5 Potassium Chloride 40 meq/ (Device) 100 mls @ 50 mls/hr IVPB ASDIR PRN PRN Reason: FOR SERUM K+ 2.5 - 3.5 Magnesium Sulfate 1 gm/ Sodium (Chloride) 102 mls @ 102 mls/hr IV PRN PRN PRN Reason: MAG LEVEL 1.4 - 2.0 Magnesium Sulfate 2 gm/ Device 100 mls @ 100 mls/hr IVPB ASDIR PRN PRN Reason: MAGNESIUM < 1.4 Last Admin: 04/24/17 17:14 Dose: 100 mls Potassium Phosphate 9 mmol/ (Sodium Chloride) 103 mls @ 25.75 mls/hr IVPB ASDIR PRN PRN Reason: Phosphate 1.0-1.8 Potassium Phosphate 12 mmol/ (Sodium Chloride) 254 mls @ 63.5 mls/hr IV ASDIR PRN PRN Reason: Serum phosphate 0.5-0.9 Potassium Phosphate 15 mmol/ (Sodium Chloride) 255 mls @ 63.75 mls/hr IV ASDIR PRN PRN Reason: Serum Phos < 0.5 Fentanyl (Fentanyl Cadd) 250 mls @ 0 mls/hr IVPB INF [facility]; Titrate PRN Reason: Protocol Stop: 05/23/17 17:19 Fentanyl Citrate (Fentanyl Bolus) 250 mls @ 0 mls/hr IVPB PRN PRN; As Directed PRN Reason: Breakthrough pain Stop: 05/23/17 17:19 Amiodarone HCl 450 mg/Miscellaneous Medication 1 each/ Dextrose/Water 259 mls @ 0 mls/hr IVPB INF [facility]; As Directed PRN Reason: Protocol Last Admin: 04/26/17 15:57 Dose: 259 mls Levofloxacin 500 mg/ Device 100 mls @ 100 mls/hr IVPB 1000 [facility] Last Admin: 04/27/17 09:29 Dose: 100 mls Midazolam HCl (Versed) 100 mls @ 0 mls/hr IVPB INF [facility]; Titrate PRN Reason: Protocol Last Admin: 04/27/17 09:30 Dose: 100 mls Vancomycin HCl 750 mg/ Sodium (Chloride) 250 mls @ 250 mls/hr IVPB 0800,2000 [facility] Lorazepam (Ativan) 2 mg SLOW IVP Q2H PRN PRN Reason: Anxiety to achieve Agee 2-3 Stop: 05/23/17 17:19 Last Admin: 04/27/17 04:17 Dose: 2 mg Magnesium Oxide (Magnesium Oxide) 400 mg PO BIDPRN PRN PRN Reason: FOR SERUM MAG 1.4 - 2.0 Magnesium Oxide (Magnesium Oxide) 800 mg PO PRN PRN PRN Reason: FOR SERUM MAG < 1.4 Miscellaneous Medication (Pharmacy To Dose) 1 each IVPB ONE PRN PRN Reason: Pharmacy to dose Stop: 05/23/17 15:45 Miscellaneous Medication (Phos-Nak) 1 pkt PO TIDPRN PRN PRN Reason: FOR PHOS LEVEL 1.0 - 1.8 Miscellaneous Medication (Phos-Nak) 2 pkt PO TIDPRN PRN PRN Reason: FOR PHOS LEVEL 0.5 - 1.0 Last Admin: 04/25/17 06:43 Dose: 2 pkt Morphine Sulfate (Morphine) 2 mg SLOW IVP Q2H PRN PRN Reason: Breakthrough pain Stop: 05/23/17 17:19 Ccu Electrolyte (Replacement Protocol) 0 each FS PRN PRN PRN Reason: FOR ELECTROLYTE REPLACEMENT Discontinue Previous Narcotic Pain Medications And Benzodiazepines 1 each FS .ONE [facility] Stop: 05/23/17 17:19 Potassium Chloride (K-Dur) 40 meq PO ASDIR PRN PRN Reason: FOR SERUM K+ 2.5 - 3.5 Potassium Chloride (Klor-Con) 40 meq PER TUBE ASDIR PRN PRN Reason: FOR SERUM K+ 2.5-3.5 Last Admin: 04/27/17 09:30 Dose: 40 meq Propofol (Diprivan) 1,000 mg IV INF PRN; Protocol PRN Reason: TO ACHIEVE AGEE SCORE 2-3 Stop: 05/23/17 17:19 Last Admin: 04/27/17 11:55 Dose: 1,000 mg Rosuvastatin Calcium (Crestor) 5 mg PO HS [facility] Last Admin: 04/26/17 20:09 Dose: 5 mg Senna (Senokot) 2 tab PO HSPRN PRN PRN Reason: Constipation
[2017-04-27] MEDS ORDERED: Budesonide 0.5 MG/2 ML NEB ONE (20:48)
[2017-04-27] MEDS: Vancomycin HCl 750 MG in Sodium Chloride 0.9% 250 ML 250 ML IVPB SCH (21:02)
[2017-04-27] MEDS: Rosuvastatin 5 MG TAB PO SCH (21:13)
[2017-04-28] MEDS: Propofol 1,000 MG/100 ML VIAL IV PRN (01:12)
[2017-04-28 05:07] LABS: Anion Gap 10 mmol/L (10-20); BUN (Urea Nitrogen) 24 mg/dL (9.8-20.1); Calc. Creatinine Clearance 68 mL/min (70-130); Calcium 7.4 mg/dL (7.8-10.44); Carbon Dioxide 29 mmol/L (23-31); Chloride 101 mmol/L (98-107); Estimated GFR-MDRD 78; Glucose 164 mg/dL (83-110); Potassium 3.7 mmol/L (3.5-5.1); Sodium 136 mmol/L (136-145)
[2017-04-28 05:44] LABS: Band 32 % (5-11); Hemoglobin 9.7 g/dL (12.0-16.0); Hypochromia SLIGHT = 6-15 cells (100X) (0-5/hpf); Lymphocytes 9 % (21-51); MDiff Complete? YES; Mean Corpuscular HGB CONC 33.2 g/dL (32.0-36.0); Mean Corpuscular Hemoglobin 32.2 pg (27.0-31.0); Mean Platelet Volume 6.8 fL (7.4-10.4); Metamyelocyte 2 % (0-0); Monocytes 15 % (0-10); Neutrophil 42 % (42-75); PLT Morphology Comment Appears Adequate; Platelet Count 184 thou/uL (130-400); RBC Distribution Width 12.1 % (11.5-14.5); Red Blood Cell (RBC) Count 3.02 mill/uL (4.20-5.40); White Blood Cell (WBC) Count 13.7 thou/uL (4.8-10.8)
--- NOTE | 2017-04-28 08:20 | RAD ---
CHEST 1 VIEW: Date: 04/28/17 HISTORY: Ventilated patient. COMPARISON: Chest 1 view prior day. FINDINGS: PICC line in good position. Patient intubated with endotracheal tube tip craniad to the epifanio approx imately 3.0 cm. Right lower lobe air space opacity is similar. Small right effusion and left effusion . Enteric tube tip below diaphragm, though out of field of view. IMPRESSION: Multiple areas in the right lower lobe with air space consolidation with lucencies may represent cavi tary pneumonia. Remainder of chest unchanged. POS: [facility]
[2017-04-28 08:27] LABS: Actual Bicarbonate (HCO3a) 27.1 mEq/L (22-26); Base Excess (BEa) 4.1 mEq/L (0 (+/-) 2.5); CO2 Tension 34.4 mmHg (35.0-45.0); Hematocrit-ABG 30.4 % (36.0-47.0); Hemoglobin (Hb) 9.6 g/dL (12.0-16.0); O2 Tension (PaO2) 83.6 mmHg (80.0-100.0); pH, Arterial 7.51 (7.35-7.45)
[2017-04-28 08:28] LABS: Puncture Site RRA
[2017-04-28 08:29] LABS: Peep/CPAP 7.5 cmH2O
--- NOTE | 2017-04-28 08:54 | PRG ---
DATE OF SERVICE: 04/28/2017 PULMONARY AND CRITICAL CARE PROGRESS NOTE Thirty five minutes critical care time. SUBJECTIVE: The patient remains intubated on mechanical ventilation. There have been no big changes overnight. PHYSICAL EXAMINATION: VITAL SIGNS: Temperature is 97.5, pulse 78, blood pressure 122/63, 24-hour intake 2184, output 1620, and weight 156 pounds. HEENT: Pupils react. Sclera anicteric. Oropharynx clear. NECK: No JVD. LUNGS: Inspiratory crackles at the bases. CARDIAC: S1, S2, slightly tachycardic. ABDOMEN: Soft, nontender. EXTREMITIES: Edematous throughout. LABORATORY DATA AND IMAGING DATA: Sodium 136, potassium 3.7, chloride 101, CO2 29, BUN 24, creatinin e 0.7, glucose 164. White blood cell count 13.7, hemoglobin 9.7, hematocrit 29.3, platelet count 184 ,000, pH 7.51, pCO2 of 34, pO2 of 83 on SIMV rate 14, tidal volume 400, PEEP 7.5, pressure support 10 , FiO2 40%. Chest x-ray shows very mild clearing. ASSESSMENT: 1. Methicillin-resistant Staphylococcus aureus pneumonia. 2. Acute respiratory failure requiring mechanical ventilation. 3. Paroxysmal atrial fibrillation. 4. Lactic acidosis. PLAN: 1. The patient's recovery has been slow. I do not think she is ready for aggressive weaning at this time. We will continue IV antibiotics, enteral tube feeds and mechanical ventilation at present set tings. Vitamin C and thiamine have been stopped since she is beyond 4 days of treatment with that. She is fluid overloaded, but I am hesitant to diurese her given the slight increase in BUN and creati nine that she has been experiencing. Hopefully we can move towards diuresis early next week. 2. Discussed with her [id number] at the bedside.
[2017-04-28] MEDS: Vancomycin HCl 750 MG in Sodium Chloride 0.9% 250 ML 250 ML IVPB SCH ×2 (09:50→20:42)
[2017-04-28] MEDS: Amiodarone 200 MG TAB PO SCH ×2 (09:50→20:42)
[2017-04-28] MEDS: Famotidine 20 MG TAB PO SCH ×2 (09:51→20:42)
[2017-04-28] MEDS: Benzonatate 100 MG CAP PO SCH ×3 (09:51→20:43)
[2017-04-28] MEDS: guaiFENesin ER 600 MG TAB PO SCH ×2 (09:51→20:42)
[2017-04-28] MEDS: Enoxaparin Sodium 40 MG/0.4 ML SYRINGE SC SCH (09:51)
[2017-04-28] MEDS: Hydrocortisone Sod Succ/PF 100 mg/2 ml Vial IVP SCH ×2 (09:51→20:42)
--- NOTE | 2017-04-28 14:51 | PDOC.PN ---
- Subjective Encounter Start Date: 04/28/17 Encounter Start Time: 07:50 Subjective: on vent, mild sedation -: not awake - Objective Resuscitation Status: Resuscitation Status FULL:Full Resuscitation MAR Reviewed: Yes Vital Signs & Weight: Vital Signs (12 hours) Temp Pulse Resp BP Pulse Ox 04/28/17 14:00 20 04/28/17 12:03 87 116/56 L 04/28/17 12:00 99.4 F 22 H 04/28/17 10:00 31 H 04/28/17 08:00 98.1 F 96 36 H 94 L 04/28/17 07:34 82 127/65 04/28/17 07:32 82 33 H 96 04/28/17 06:00 30 H 04/28/17 04:00 26 H Weight Admit Weight 132 lb Weight 156 lb 15.506 oz Most Recent Monitor Data Heart Rate from ECG 83 NIBP 103/55 NIBP BP-Mean 68 Respiration from ECG 21 SpO2 96 I&O: 04/27/17 04/28/17 04/29/17 06:59 06:59 06:59 Intake Total 4108 2184.0 140.1 Output Total 2290 1620 410 Balance 1818 564.0 -269.9 Result Diagrams: 04/28/17 04:00 04/28/17 04:00 Phys Exam - Physical Examination HEENT: PERRLA, moist MMs Neck: no JVD, supple Respiratory: no wheezing, no rales Cardiovascular: RRR, no significant murmur Gastrointestinal: soft, non-tender, positive bowel sounds Musculoskeletal: pulses present, edema present Neurological: non-focal Dx/Plan (1) Acute respiratory failure with hypoxia Code(s): J96.01 - ACUTE RESPIRATORY FAILURE WITH HYPOXIA Status: Acute (2) Pneumonia Code(s): J18.9 - PNEUMONIA, UNSPECIFIED ORGANISM Status: Acute Qualifiers: Pneumonia type: due to methicillin-resistant Staphylococcus aureus (MRSA) Laterality: bilateral (3) Sepsis Code(s): A41.9 - SEPSIS, UNSPECIFIED ORGANISM Status: Acute Qualifiers: Sepsis type: methicillin susceptible Staphylococcus aureus Qualified Code(s ): A41.01 - Sepsis due to Methicillin susceptible Staphylococcus aureus (4) HTN (hypertension) Code(s): I10 - ESSENTIAL (PRIMARY) HYPERTENSION Status: Chronic Qualifiers: Hypertension type: essential hypertension Qualified Code(s): I10 - Essential (primary) hypertension (5) Hypothyroidism Code(s): E03.9 - HYPOTHYROIDISM, UNSPECIFIED Status: Chronic Qualifiers: Hypothyroidism type: unspecified Qualified Code(s): E03.9 - Hypothyroidism , unspecified (6) Dyslipidemia Code(s): E78.5 - HYPERLIPIDEMIA, UNSPECIFIED Status: Chronic (7) Afib Code(s): I48.91 - UNSPECIFIED ATRIAL FIBRILLATION Status: Acute (8) Chronic anemia Code(s): D64.9 - ANEMIA, UNSPECIFIED Status: Chronic - Plan is on levaquin and vanc -: nebs, oral amio for afib now in sinus -: ng nutrition -: prognosis guarded * . Review of Systems - Medications/Allergies Allergies/Adverse Reactions: Allergies Allergy/AdvReac Type Severity Reaction Status Date / Time No Known Allergies Allergy Verified 04/23/17 15:11 Medications: Current Medications Acetaminophen (Tylenol) 650 mg PO Q4H PRN PRN Reason: Headache/Fever or Pain Last Admin: 04/24/17 14:07 Dose: 650 mg Al Hydroxide/Mg Hydroxide (Maalox) 30 ml PO Q6H PRN PRN Reason: Heartburn or Indigestion Albuterol/Ipratropium (Duoneb) 3 ml NEB [id number] [facility] Last Admin: 04/28/17 07:32 Dose: 3 ml Amiodarone HCl (Cordarone) 400 mg PO BID [facility] Last Admin: 04/28/17 09:50 Dose: 400 mg Benzonatate (Tessalon) 100 mg PO TID [facility] Last Admin: 04/28/17 09:51 Dose: Not Given Enoxaparin Sodium (Lovenox) 40 mg SC 0900 [facility] Last Admin: 04/28/17 09:51 Dose: 40 mg Famotidine (Pepcid) 20 mg PO BID [facility] Last Admin: 04/28/17 09:51 Dose: 20 mg Guaifenesin (Mucinex) 600 mg PO Q12HR [facility] Last Admin: 04/28/17 09:51 Dose: 600 mg Guaifenesin/Dextromethorphan (Robitussin Dm) 15 ml PO Q4H PRN PRN Reason: Cough Hydrocortisone Sodium Succinate (Solu-Cortef) 50 mg IVP Q12HR [facility] Stop: 05/04/17 09:01 Last Admin: 04/28/17 09:51 Dose: 50 mg Potassium Chloride 40 meq/ (Sodium Chloride) 270 mls @ 135 mls/hr IVPB ASDIR PRN PRN Reason: FOR SERUM K+ 2.5 - 3.5 Potassium Chloride 40 meq/ (Device) 100 mls @ 50 mls/hr IVPB ASDIR PRN PRN Reason: FOR SERUM K+ 2.5 - 3.5 Magnesium Sulfate 1 gm/ Sodium (Chloride) 102 mls @ 102 mls/hr IV PRN PRN PRN Reason: MAG LEVEL 1.4 - 2.0 Magnesium Sulfate 2 gm/ Device 100 mls @ 100 mls/hr IVPB ASDIR PRN PRN Reason: MAGNESIUM < 1.4 Last Admin: 04/24/17 17:14 Dose: 100 mls Potassium Phosphate 9 mmol/ (Sodium Chloride) 103 mls @ 25.75 mls/hr IVPB ASDIR PRN PRN Reason: Phosphate 1.0-1.8 Potassium Phosphate 12 mmol/ (Sodium Chloride) 254 mls @ 63.5 mls/hr IV ASDIR PRN PRN Reason: Serum phosphate 0.5-0.9 Potassium Phosphate 15 mmol/ (Sodium Chloride) 255 mls @ 63.75 mls/hr IV ASDIR PRN PRN Reason: Serum Phos < 0.5 Fentanyl (Fentanyl Cadd) 250 mls @ 0 mls/hr IVPB INF [facility]; Titrate PRN Reason: Protocol Stop: 05/23/17 17:19 Last Admin: 04/28/17 09:52 Dose: 250 mls Fentanyl Citrate (Fentanyl Bolus) 250 mls @ 0 mls/hr IVPB PRN PRN; As Directed PRN Reason: Breakthrough pain Stop: 05/23/17 17:19 Amiodarone HCl 450 mg/Miscellaneous Medication 1 each/ Dextrose/Water 259 mls @ 0 mls/hr IVPB INF [facility]; As Directed PRN Reason: Protocol Last Admin: 04/26/17 15:57 Dose: 259 mls Levofloxacin 500 mg/ Device 100 mls @ 100 mls/hr IVPB 1000 [facility] Last Admin: 04/28/17 09:52 Dose: 100 mls Midazolam HCl (Versed) 100 mls @ 0 mls/hr IVPB INF [facility]; Titrate PRN Reason: Protocol Last Admin: 04/28/17 03:57 Dose: 100 mls Vancomycin HCl 750 mg/ Sodium (Chloride) 250 mls @ 250 mls/hr IVPB 0800,1999 [facility] Last Admin: 04/28/17 09:50 Dose: 250 mls Lorazepam (Ativan) 2 mg SLOW IVP Q2H PRN PRN Reason: Anxiety to achieve Agee 2-3 Stop: 05/23/17 17:19 Last Admin: 04/27/17 04:17 Dose: 2 mg Magnesium Oxide (Magnesium Oxide) 400 mg PO BIDPRN PRN PRN Reason: FOR SERUM MAG 1.4 - 2.0 Magnesium Oxide (Magnesium Oxide) 800 mg PO PRN PRN PRN Reason: FOR SERUM MAG < 1.4 Miscellaneous Medication (Pharmacy To Dose) 1 each IVPB ONE PRN PRN Reason: Pharmacy to dose Stop: 05/23/17 15:45 Miscellaneous Medication (Phos-Nak) 1 pkt PO TIDPRN PRN PRN Reason: FOR PHOS LEVEL 1.0 - 1.8 Miscellaneous Medication (Phos-Nak) 2 pkt PO TIDPRN PRN PRN Reason: FOR PHOS LEVEL 0.5 - 1.0 Last Admin: 04/25/17 06:43 Dose: 2 pkt Morphine Sulfate (Morphine) 2 mg SLOW IVP Q2H PRN PRN Reason: Breakthrough pain Stop: 05/23/17 17:19 Ccu Electrolyte (Replacement Protocol) 0 each FS PRN PRN PRN Reason: FOR ELECTROLYTE REPLACEMENT Discontinue Previous Narcotic Pain Medications And Benzodiazepines 1 each FS .ONE [facility] Stop: 05/23/17 17:19 Potassium Chloride (K-Dur) 40 meq PO ASDIR PRN PRN Reason: FOR SERUM K+ 2.5 - 3.5 Potassium Chloride (Klor-Con) 40 meq PER TUBE ASDIR PRN PRN Reason: FOR SERUM K+ 2.5-3.5 Last Admin: 04/27/17 09:30 Dose: 40 meq Propofol (Diprivan) 1,000 mg IV INF PRN; Protocol PRN Reason: TO ACHIEVE AGEE SCORE 2-3 Stop: 05/23/17 17:19 Last Admin: 04/28/17 01:12 Dose: 1,000 mg Rosuvastatin Calcium (Crestor) 5 mg PO HS [facility] Last Admin: 04/27/17 21:13 Dose: 5 mg Senna (Senokot) 2 tab PO HSPRN PRN PRN Reason: Constipation
[2017-04-28] MEDS: Rosuvastatin 5 MG TAB PO SCH (20:42)
[2017-04-29 04:32] LABS: Band 25 % (5-11); Hemoglobin 10.1 g/dL (12.0-16.0); Lymphocytes 8 % (21-51); MDiff Complete? YES; Mean Corpuscular Hemoglobin 32.1 pg (27.0-31.0); Mean Corpuscular Volume 97.4 fl (81.0-99.0); Mean Platelet Volume 6.7 fL (7.4-10.4); Metamyelocyte 4 % (0-0); Monocytes 5 % (0-10); Myelocyte 1 % (0-0); Neutrophil 57 % (42-75); PLT Morphology Comment Appears Adequate; Platelet Count 233 thou/uL (130-400); RBC Distribution Width 12.2 % (11.5-14.5); Red Blood Cell (RBC) Count 3.16 mill/uL (4.20-5.40); White Blood Cell (WBC) Count 16.8 thou/uL (4.8-10.8)
[2017-04-29 04:34] LABS: Anion Gap 10 mmol/L (10-20); BUN (Urea Nitrogen) 30 mg/dL (9.8-20.1); Calc. Creatinine Clearance 70 mL/min (70-130); Calcium 7.5 mg/dL (7.8-10.44); Carbon Dioxide 29 mmol/L (23-31); Chloride 102 mmol/L (98-107); Estimated GFR-MDRD 79; Glucose 151 mg/dL (83-110); Sodium 137 mmol/L (136-145)
[2017-04-29 07:16] LABS: Vancomycin, Trough 17.8 ug/mL
--- NOTE | 2017-04-29 08:31 | PDOC.PN ---
- Subjective Encounter Start Date: 04/29/17 Encounter Start Time: 08:28 Subjective: intubated, sedated ,on vent - Objective Resuscitation Status: Resuscitation Status FULL:Full Resuscitation MAR Reviewed: Yes Vital Signs & Weight: Vital Signs (12 hours) Temp Pulse Resp BP Pulse Ox 04/29/17 08:22 87 140/69 04/29/17 08:17 88 16 93 L 04/29/17 08:00 98 F 17 04/29/17 07:00 98 F 04/29/17 06:00 17 04/29/17 04:00 99.3 F 16 04/29/17 03:45 99 125/53 L 04/29/17 02:00 17 04/29/17 00:31 95 04/29/17 00:00 99.2 F 16 04/28/17 22:27 90 130/62 04/28/17 22:00 21 H Weight Admit Weight 132 lb Weight 159 lb 9.835 oz Most Recent Monitor Data Heart Rate from ECG 89 NIBP 140/69 NIBP BP-Mean 90 Respiration from ECG 20 SpO2 95 I&O: 04/28/17 04/29/17 04/30/17 06:59 06:59 06:59 Intake Total 2184.0 1351.1 30 Output Total 1620 1110 40 Balance 564.0 241.1 -10 Result Diagrams: 04/29/17 03:45 04/29/17 03:45 Radiology Reviewed by me: Yes (cxr- RLL PNA) Phys Exam - Physical Examination Constitutional: NAD Neck: no JVD clear upper schultz, rales rhonchi bilat lower schultz, R>> L Cardiovascular: no significant murmur, irregular Gastrointestinal: soft, non-tender, positive bowel sounds Musculoskeletal: pulses present, edema present Dx/Plan (1) Acute respiratory failure with hypoxia Code(s): J96.01 - ACUTE RESPIRATORY FAILURE WITH HYPOXIA Status: Acute (2) Afib Code(s): I48.91 - UNSPECIFIED ATRIAL FIBRILLATION Status: Acute Qualifiers: Atrial fibrillation type: paroxysmal Qualified Code(s): I48.0 - Paroxysmal atrial fibrillation (3) Pneumonia Code(s): J18.9 - PNEUMONIA, UNSPECIFIED ORGANISM Status: Acute Qualifiers: Pneumonia type: due to methicillin-resistant Staphylococcus aureus (MRSA) Laterality: bilateral (4) Chronic anemia Code(s): D64.9 - ANEMIA, UNSPECIFIED Status: Chronic (5) HTN (hypertension) Code(s): I10 - ESSENTIAL (PRIMARY) HYPERTENSION Status: Chronic Qualifiers: Hypertension type: essential hypertension Qualified Code(s): I10 - Essential (primary) hypertension (6) Hypothyroidism Code(s): E03.9 - HYPOTHYROIDISM, UNSPECIFIED Status: Chronic Qualifiers: Hypothyroidism type: unspecified Qualified Code(s): E03.9 - Hypothyroidism , unspecified (7) Lactic acid acidosis Code(s): E87.2 - ACIDOSIS Status: Acute - Plan cont iv vancomycil, serial vanc levels -: cont vent support, nutrition per PEG -: cont amiodarone for AF -: discuss with ambulatory analyst * .
--- NOTE | 2017-04-29 08:34 | RAD ---
CHEST 1 VIEW: Date: 04/29/17 HISTORY: Ventilated patient. COMPARISON: Chest 1 view from prior day. FINDINGS: The patient is intubated with endotracheal tube tip near the epifanio, approximately 1.5 cm craniad to the epifanio. The PICC line is in good position. The right lower lobe air space opacity appears to have increased cavitations. Layering right effusion. IMPRESSION: Worsening bubbly lucencies in the right lower lobe concerning for cavitary pneumonia. POS: [facility]
[2017-04-29] MEDS: Vancomycin HCl 750 MG in Sodium Chloride 0.9% 250 ML 250 ML IVPB SCH ×2 (08:37→20:02)
[2017-04-29] MEDS: guaiFENesin ER 600 MG TAB PO SCH ×2 (08:38→20:03)
[2017-04-29] MEDS: Benzonatate 100 MG CAP PO SCH ×3 (08:38→20:03)
[2017-04-29] MEDS: Enoxaparin Sodium 40 MG/0.4 ML SYRINGE SC SCH (08:38)
[2017-04-29] MEDS: Hydrocortisone Sod Succ/PF 100 mg/2 ml Vial IVP SCH ×2 (08:38→20:02)
[2017-04-29] MEDS: Amiodarone 200 MG TAB PO SCH ×2 (08:38→20:03)
[2017-04-29] MEDS: Famotidine 20 MG TAB PO SCH ×2 (08:39→20:03)
[2017-04-29 08:41] LABS: Actual Bicarbonate (HCO3a) 28.2 mEq/L (22-26); CO2 Tension 40.7 mmHg (35.0-45.0); Hemoglobin (Hb) 7.9 g/dL (12.0-16.0); pH, Arterial 7.46 (7.35-7.45)
[2017-04-29 08:42] LABS: ALV-art Gradient 161.325 (0-20); Calcium, Ionized 1.1 mmol/L (1.12-1.30); Peep/CPAP 7.5 cmH2O; Puncture Site RBA
--- NOTE | 2017-04-29 11:16 | PRG ---
DATE OF SERVICE: 04/29/2017 35 minutes critical care time. SUBJECTIVE: The patient remains intubated on mechanical ventilation. There have been no acute espinoza es overnight. PHYSICAL EXAMINATION: VITAL SIGNS: Temperature is 98 with a T-max of 99.3, pulse 92, blood pressure 135/72; 24-hour intake 1351, output 1110; weight 159 pounds. HEENT: Unremarkable. NECK: No JVD. LUNGS: Coarse rhonchi. CARDIOVASCULAR: S1 and S2, regular. ABDOMEN: Soft. EXTREMITIES: 2+ edema throughout. LABORATORY DATA: Sodium 137, potassium 4, chloride 102, CO2 of 29, BUN 30, creatinine 0.7, glucose 1 51; pH 7.46, pCO2 of 40, pO2 of 73, that is on SIMV rate 14, tidal volume 400, PEEP 7.5, pressure sup port 10, FiO2 of 40%. White blood cell count 16.8, hematocrit 30, platelet count 233. ASSESSMENT: 1. Acute respiratory failure requiring mechanical ventilation. 2. Methicillin-resistant Staphylococcus aureus pneumonia. 3. Generalized deconditioning. 4. Generalized edema. 5. Paroxysmal atrial fibrillation. PLAN: She has improved markedly on mechanical ventilation in terms of her respiratory rate. I will go ahead and try on spontaneous breathing today. I do not think we can get her extubated today, but I plan to work towards getting her extubated in the next 48 hours. I will speak with the family when they are available.
[2017-04-29] MEDS: Rosuvastatin 5 MG TAB PO SCH (20:03)
[2017-04-30 04:29] LABS: Anion Gap 9 mmol/L (10-20); BUN (Urea Nitrogen) 28 mg/dL (9.8-20.1); Calc. Creatinine Clearance 80 mL/min (70-130); Calcium 7.8 mg/dL (7.8-10.44); Carbon Dioxide 30 mmol/L (23-31); Chloride 105 mmol/L (98-107); Estimated GFR-MDRD Greater than 90; Glucose 155 mg/dL (83-110); Potassium 3.8 mmol/L (3.5-5.1); Sodium 140 mmol/L (136-145)
[2017-04-30 04:45] LABS: Band 7 % (5-11); Hemoglobin 10.3 g/dL (12.0-16.0); Lymphocytes 13 % (21-51); MDiff Complete? YES; Mean Corpuscular HGB CONC 33.2 g/dL (32.0-36.0); Mean Corpuscular Hemoglobin 32.6 pg (27.0-31.0); Mean Corpuscular Volume 98.1 fl (81.0-99.0); Mean Platelet Volume 6.5 fL (7.4-10.4); Monocytes 6 % (0-10); Neutrophil 74 % (42-75); PLT Morphology Comment Appears Adequate; Platelet Count 278 thou/uL (130-400); RBC Distribution Width 12.2 % (11.5-14.5); Red Blood Cell (RBC) Count 3.15 mill/uL (4.20-5.40); White Blood Cell (WBC) Count 17.6 thou/uL (4.8-10.8)
--- NOTE | 2017-04-30 07:44 | PRG ---
DATE OF SERVICE: 04/30/2017 Thirty-five minutes critical care time. The patient remains intubated on mechanical ventilation. She is much more awake this morning. She i s able to follow commands without much difficulty. PHYSICAL EXAMINATION: VITAL SIGNS: Temperature is 98.2 with no fever overnight, pulse 93, blood pressure 157/75. Total in take for 24 hours 1871, output 1160, weight 161 pounds. HEENT: Unremarkable. NECK: No JVD. LUNGS: Coarse rhonchi bilaterally with still heavy secretions. CARDIOVASCULAR: S1, S2 regular. ABDOMEN: Soft, nontender. EXTREMITIES: Edematous throughout. LABORATORY DATA: Sodium 140, potassium 3.8, chloride 105, CO2 30, BUN 28, creatinine 0.6, glucose 15 5. White blood cell count 17.6, hemoglobin 10, hematocrit 30.9, platelet count 278. ABG result is p ending. Chest x-ray shows no significant change compared to the film yesterday. ASSESSMENT: 1. Acute respiratory failure requiring mechanical ventilation. 2. Methicillin-resistant Staphylococcus aureus pneumonia. 3. Generalized deconditioning which appears to be improving. 4. Edema. 5. Paroxysmal atrial fibrillation. PLAN: I have turned PEEP down on the ventilator today. I think her O2 sats are still very marginal for extubation. I will go ahead and put a scopolamine patch on the patient. We will continue her an tibiotics, steroids and nebulization treatments. The goal would be to extubate her tomorrow if she d oes reasonably well today.
[2017-04-30 08:04] LABS: Actual Bicarbonate (HCO3a) 27.2 mEq/L (22-26); Base Excess (BEa) 3.5 mEq/L (0 (+/-) 2.5); CO2 Tension 38.1 mmHg (35.0-45.0); Hematocrit-ABG 30.9 % (36.0-47.0); O2 Tension (PaO2) 67.3 mmHg (80.0-100.0); pH, Arterial 7.47 (7.35-7.45)
[2017-04-30 08:05] LABS: ALV-art Gradient 170.275 (0-20); Calcium, Ionized 1.1 mmol/L (1.12-1.30); Hemoglobin (Hb) 10.3 g/dL (12.0-16.0); Puncture Site RRA
[2017-04-30] MEDS: Vancomycin HCl 750 MG in Sodium Chloride 0.9% 250 ML 250 ML IVPB SCH ×2 (08:30→20:24)
[2017-04-30] MEDS: Benzonatate 100 MG CAP PO SCH ×3 (08:30→20:25)
[2017-04-30] MEDS: Furosemide 40 MG/4 ML VIAL SLOW IVP SCH ×2 (08:31→20:26)
[2017-04-30] MEDS: Amiodarone 200 MG TAB PO SCH (08:31)
[2017-04-30] MEDS: guaiFENesin ER 600 MG TAB PO SCH ×2 (08:31→20:26)
[2017-04-30] MEDS: Hydrocortisone Sod Succ/PF 100 mg/2 ml Vial IVP SCH ×2 (08:31→20:26)
[2017-04-30] MEDS: Famotidine 20 MG TAB PO SCH ×2 (08:31→20:25)
[2017-04-30] MEDS: Enoxaparin Sodium 40 MG/0.4 ML SYRINGE SC SCH (08:31)
[2017-04-30] MEDS: Scopolamine 1.5 mg/72 hour Patch TD SCH (08:32)
[2017-04-30] MEDS: Lorazepam 2 MG/ML VIAL SLOW IVP PRN (08:32)
--- NOTE | 2017-04-30 08:40 | PDOC.PN ---
- Subjective Encounter Start Date: 04/30/17 Encounter Start Time: 08:38 Subjective: intubated, responds appropriately - Objective Resuscitation Status: Resuscitation Status FULL:Full Resuscitation MAR Reviewed: Yes Vital Signs & Weight: Vital Signs (12 hours) Temp Pulse Resp Pulse Ox 04/30/17 07:42 92 04/30/17 07:00 98.3 F 04/30/17 06:00 20 04/30/17 04:00 98.2 F 20 04/30/17 02:45 95 04/30/17 02:00 22 H 04/30/17 00:53 94 24 H 93 L 04/30/17 00:00 98.1 F 19 04/29/17 22:49 97 04/29/17 22:00 18 Weight Admit Weight 132 lb Weight 161 lb 13.109 oz Most Recent Monitor Data Heart Rate from ECG 97 NIBP 162/78 NIBP BP-Mean 99 Respiration from ECG 21 SpO2 94 I&O: 04/29/17 04/30/17 05/01/17 06:59 06:59 06:59 Intake Total 1351.1 1871 Output Total 1110 1160 120 Balance 241.1 711 -120 Result Diagrams: 04/30/17 04:00 04/30/17 04:00 Phys Exam - Physical Examination Constitutional: NAD Neck: no JVD rales bilat lower schultz, R>L Cardiovascular: RRR, no significant murmur Gastrointestinal: soft, non-tender, positive bowel sounds Musculoskeletal: edema present Dx/Plan (1) Acute respiratory failure with hypoxia Code(s): J96.01 - ACUTE RESPIRATORY FAILURE WITH HYPOXIA Status: Acute (2) Afib Code(s): I48.91 - UNSPECIFIED ATRIAL FIBRILLATION Status: Acute Qualifiers: Atrial fibrillation type: paroxysmal Qualified Code(s): I48.0 - Paroxysmal atrial fibrillation (3) Pneumonia Code(s): J18.9 - PNEUMONIA, UNSPECIFIED ORGANISM Status: Acute Qualifiers: Pneumonia type: due to methicillin-resistant Staphylococcus aureus (MRSA) Laterality: bilateral (4) Chronic anemia Code(s): D64.9 - ANEMIA, UNSPECIFIED Status: Chronic (5) HTN (hypertension) Code(s): I10 - ESSENTIAL (PRIMARY) HYPERTENSION Status: Chronic Qualifiers: Hypertension type: essential hypertension Qualified Code(s): I10 - Essential (primary) hypertension (6) Hypothyroidism Code(s): E03.9 - HYPOTHYROIDISM, UNSPECIFIED Status: Chronic Qualifiers: Hypothyroidism type: unspecified Qualified Code(s): E03.9 - Hypothyroidism , unspecified (7) Lactic acid acidosis Code(s): E87.2 - ACIDOSIS Status: Acute - Plan steady improvement -: cont vent, weaning per erp pm -: nebs, antibx -: NGT feedings, po meds per NGT * .
--- NOTE | 2017-04-30 08:57 | RAD ---
PORTABLE CHEST 1 VIEW: DATE: 04/30/17. TIME: 5:21 a.m. HISTORY: Respiratory failure. FINDINGS: Comparison is made with the exam of the previous day. Line and tube placements are unchanged in position. The heart size is normal. The right lower lobe airspace opacity with cavitations is again seen with accompanying pleural effusion. No pneumothorace s are identified. POS: [facility]
[2017-04-30] MEDS: Rosuvastatin 5 MG TAB PO SCH (20:25)
--- NOTE | 2017-05-01 00:26 | PRG ---
DATE OF SERVICE: 04/30/2017 Ms. Lei continues to be intubated. Her rate appears stable. She continues to be in sinus rhythm. OBJECTIVE: VITAL SIGNS: Blood pressure 151/70, pulse 60, temperature . LUNGS: Decreased breath sounds. CARDIAC: Regular rate and rhythm. ABDOMEN: Soft, nontender, nondistended. EXTREMITIES: No edema. NEUROLOGIC: She is currently intubated and sedated. PERTINENT LABORATORY DATA: Hemoglobin 10.3, creatinine 0.63. IMPRESSION: 1. Pneumonia. 2. Atrial fibrillation. 3. Respiratory failure. RECOMMENDATIONS: Ms. Lei continues to maintain sinus rhythm. I did decrease amiodarone therapy t o 400 p.o. q.a.m. Continue vent support and antibiotic treatment.
[2017-05-01 05:09] LABS: Anion Gap 9 mmol/L (10-20); BUN (Urea Nitrogen) 28 mg/dL (9.8-20.1); Calc. Creatinine Clearance 72 mL/min (70-130); Calcium 7.8 mg/dL (7.8-10.44); Carbon Dioxide 33 mmol/L (23-31); Chloride 101 mmol/L (98-107); Estimated GFR-MDRD 82; Glucose 137 mg/dL (83-110); Potassium 3.4 mmol/L (3.5-5.1); Sodium 140 mmol/L (136-145)
[2017-05-01 05:29] LABS: Band 21 % (5-11); Hemoglobin 9.9 g/dL (12.0-16.0); Lymphocytes 11 % (21-51); MDiff Complete? YES; Mean Corpuscular HGB CONC 32.4 g/dL (32.0-36.0); Mean Corpuscular Hemoglobin 31.8 pg (27.0-31.0); Mean Corpuscular Volume 98.2 fl (81.0-99.0); Mean Platelet Volume 6.4 fL (7.4-10.4); Neutrophil 68 % (42-75); PLT Morphology Comment Appears Adequate; Platelet Count 294 thou/uL (130-400); RBC Distribution Width 12.1 % (11.5-14.5); Red Blood Cell (RBC) Count 3.11 mill/uL (4.20-5.40); White Blood Cell (WBC) Count 15.2 thou/uL (4.8-10.8)
[2017-05-01 07:19] LABS: Vancomycin, Trough 16.2 ug/mL
[2017-05-01] MEDS: Amiodarone 200 MG TAB PO SCH (08:04)
[2017-05-01] MEDS: Enoxaparin Sodium 40 MG/0.4 ML SYRINGE SC SCH (08:04)
[2017-05-01] MEDS: guaiFENesin ER 600 MG TAB PO SCH ×2 (08:04→19:46)
[2017-05-01] MEDS: Famotidine 20 MG TAB PO SCH ×2 (08:04→19:46)
[2017-05-01] MEDS: Hydrocortisone Sod Succ/PF 100 mg/2 ml Vial IVP SCH ×2 (08:04→20:45)
[2017-05-01] MEDS: Benzonatate 100 MG CAP PO SCH ×3 (08:04→19:45)
[2017-05-01] MEDS: Vancomycin HCl 750 MG in Sodium Chloride 0.9% 250 ML 250 ML IVPB SCH ×2 (08:05→19:37)
--- NOTE | 2017-05-01 08:28 | RAD ---
PORTABLE CHEST ONE VIEW: Date: 05-01-17 Time: 5:04 a.m. History: Respiratory failure. FINDINGS/IMPRESSION: Comparison made with exam of previous day. Lines and tubes are unchanged in position. The heart size is normal. The airspace opacity and cavitat ion in the right lower lobe is unchanged with accompanying pleural effusion. No pneumothoraces are se en. POS: [facility]
--- NOTE | 2017-05-01 09:08 | PRG ---
DATE OF SERVICE: 05/01/2017 SUBJECTIVE: Patient is about the same. She has been on CPAP now for 24 hours without much difficult y. PHYSICAL EXAMINATION: VITAL SIGNS: Temperature is 98.8, pulse 87, blood pressure 143/63, 24-hour intake 2689, output 5255. HEENT: Unremarkable. NECK: No JVD. LUNGS: A few crackles in the right base, left side clear. CARDIAC: S1 and S2, regular. ABDOMEN: Soft. EXTREMITIES: Edematous and bruised. LABORATORY DATA: ABG is pending. White blood cell count 15, hematocrit 30, platelet count 294. Sod ium 140, potassium 3.4, chloride 101, CO2 of 33, BUN 20, creatinine 0.6, glucose 137. Chest x-ray sh ows a continued right lower lobe infiltrate. ASSESSMENT: 1. Acute respiratory failure, requiring mechanical ventilation. 2. Right lower lobe pneumonia caused by methicillin-resistant staphylococcus aureus. 3. Generalized deconditioning. 4. Edema. PLAN: I reviewed today her blood gas hopefully extubate. Continue the IV vancomycin and Levaquin. Updated the patient's family.
--- NOTE | 2017-05-01 09:17 | PDOC.PN ---
- Subjective Encounter Start Date: 05/01/17 Encounter Start Time: 09:08 Subjective: extubated, comfortable - Objective Resuscitation Status: Resuscitation Status FULL:Full Resuscitation MAR Reviewed: Yes Vital Signs & Weight: Vital Signs (12 hours) Temp Pulse Resp BP Pulse Ox 05/01/17 08:31 83 154/66 H 05/01/17 08:30 87 22 H 94 L 05/01/17 07:45 98.8 F 86 21 H 95 05/01/17 05:51 21 H 05/01/17 04:00 98.8 F 05/01/17 03:45 19 05/01/17 02:00 13 05/01/17 00:48 87 14 95 05/01/17 00:00 99.0 F 13 04/30/17 22:00 16 Weight Admit Weight 132 lb Weight 157 lb 13.616 oz Most Recent Monitor Data Heart Rate from ECG 87 NIBP 143/63 NIBP BP-Mean 101 Respiration from ECG 19 SpO2 95 I&O: 04/30/17 05/01/17 05/02/17 06:59 06:59 06:59 Intake Total 1871 2689.8 Output Total 1160 5255 40 Balance 711 -2565.2 -40 Result Diagrams: 05/01/17 04:30 05/01/17 04:30 Phys Exam - Physical Examination Constitutional: NAD Neck: no JVD rales RLL, OW clear Cardiovascular: RRR, no significant murmur Gastrointestinal: soft, positive bowel sounds Musculoskeletal: no edema Dx/Plan (1) Acute respiratory failure with hypoxia Code(s): J96.01 - ACUTE RESPIRATORY FAILURE WITH HYPOXIA Status: Acute (2) Afib Code(s): I48.91 - UNSPECIFIED ATRIAL FIBRILLATION Status: Acute Qualifiers: Atrial fibrillation type: paroxysmal Qualified Code(s): I48.0 - Paroxysmal atrial fibrillation (3) Pneumonia Code(s): J18.9 - PNEUMONIA, UNSPECIFIED ORGANISM Status: Acute Qualifiers: Pneumonia type: due to methicillin-resistant Staphylococcus aureus (MRSA) Laterality: bilateral (4) Chronic anemia Code(s): D64.9 - ANEMIA, UNSPECIFIED Status: Chronic (5) HTN (hypertension) Code(s): I10 - ESSENTIAL (PRIMARY) HYPERTENSION Status: Chronic Qualifiers: Hypertension type: essential hypertension Qualified Code(s): I10 - Essential (primary) hypertension (6) Hypothyroidism Code(s): E03.9 - HYPOTHYROIDISM, UNSPECIFIED Status: Chronic Qualifiers: Hypothyroidism type: unspecified Qualified Code(s): E03.9 - Hypothyroidism , unspecified (7) Lactic acid acidosis Code(s): E87.2 - ACIDOSIS Status: Acute - Plan cont vanc/levquin iv -: cont iv steroids -: cont amiodarone * .
--- NOTE | 2017-05-01 10:17 | PRG ---
DATE OF SERVICE: 05/01/2017 SUBJECTIVE: Ms. Lei continues to be in sinus rhythm. She is more awake and alert today. OBJECTIVE: VITAL SIGNS: Blood pressure 154/66, pulse 83, temperature afebrile. LUNGS: Coarse rhonchi bilaterally. HEART: Regular rate and rhythm. ABDOMEN: Soft, nontender, nondistended. EXTREMITIES: No edema. IMPRESSION: 1. Atrial fibrillation. 2. Community-acquired pneumonia. RECOMMENDATIONS: Atrial fibrillation likely related to pneumonia. Her rate appears to be stable. S he is currently on amiodarone 400 mg subcu q.a.m. and will continue. I did discuss long-term anticoa gulation therapy as well as immunotherapy with the family. At this point, I will point to her curren t underlying condition as to the predisposing factor to her atrial fibrillation. We would recommend monitoring closely as an outpatient for any recurrent episodes of atrial fibrillation. The risk and benefit ratio is not in her favor on long-term anticoagulation therapy unless she has further episode s. Continue vent support for pulmonary.
[2017-05-01 17:02] LABS: Actual Bicarbonate (HCO3a) 30.4 mEq/L (22-26); Base Excess (BEa) 6.7 mEq/L (0 (+/-) 2.5); CO2 Tension 40.2 mmHg (35.0-45.0); Calcium, Ionized 1.1 mmol/L (1.12-1.30); Hematocrit-ABG 29.7 % (36.0-47.0); Hemoglobin (Hb) 9.3 g/dL (12.0-16.0); O2 Tension (PaO2) 69.3 mmHg (80.0-100.0)
[2017-05-01 17:03] LABS: Puncture Site L.R.
[2017-05-01] MEDS: Rosuvastatin 5 MG TAB PO SCH (19:46)
[2017-05-02 05:05] LABS: #Monocytes 0.4 thou/uL (0.11-0.59); #Neutrophils 10.6 thou/uL (1.40-6.50); %Basophils 0.2 % (0.0-1.0); %Eosinophils 0.4 % (0.0-10.0); %Monocytes 3.1 % (0.0-10.0); %Neutrophils 88.3 % (42.0-75.0); Hemoglobin 8.8 g/dL (12.0-16.0); Mean Corpuscular HGB CONC 33.2 g/dL (32.0-36.0); Mean Corpuscular Hemoglobin 32.4 pg (27.0-31.0); Mean Corpuscular Volume 97.7 fl (81.0-99.0); Mean Platelet Volume 6.2 fL (7.4-10.4); Platelet Count 304 thou/uL (130-400); RBC Distribution Width 11.9 % (11.5-14.5); Red Blood Cell (RBC) Count 2.72 mill/uL (4.20-5.40); White Blood Cell (WBC) Count 11.9 thou/uL (4.8-10.8)
[2017-05-02 05:15] LABS: Anion Gap 7 mmol/L (10-20); BUN (Urea Nitrogen) 21 mg/dL (9.8-20.1); Calc. Creatinine Clearance 75 mL/min (70-130); Calcium 7.5 mg/dL (7.8-10.44); Carbon Dioxide 32 mmol/L (23-31); Chloride 105 mmol/L (98-107); Estimated GFR-MDRD Greater than 90; Glucose 99 mg/dL (83-110); Potassium 3.2 mmol/L (3.5-5.1); Sodium 141 mmol/L (136-145)
[2017-05-02] MEDS: Potassium Chloride 40 MEQ in Premix Bag 1 BAG IVPB PRN (05:35)
[2017-05-02] MEDS: Hydrocortisone Sod Succ/PF 100 mg/2 ml Vial IVP SCH ×2 (07:51→20:35)
[2017-05-02] MEDS: Vancomycin HCl 750 MG in Sodium Chloride 0.9% 250 ML 250 ML IVPB SCH ×2 (07:51→19:26)
[2017-05-02] MEDS: Enoxaparin Sodium 40 MG/0.4 ML SYRINGE SC SCH (07:51)
--- NOTE | 2017-05-02 08:01 | PDOC.PULPN ---
Progress Note: Subj/Obj - Subjective Date: 05/02/17 Time: 07:59 Narrative: Extubated yesterday. Hurting "all over" - ROS All systems: reviewed and no additional remarkable complaints except as stated Constitutional: weakness Respiratory: cough - Objective Allergies/Adverse Reactions: Allergies Allergy/AdvReac Type Severity Reaction Status Date / Time No Known Allergies Allergy Verified 04/23/17 15:11 Medications: Current Medications Acetaminophen (Tylenol) 650 mg PO Q4H PRN PRN Reason: Headache/Fever or Pain Last Admin: 04/24/17 14:07 Dose: 650 mg Al Hydroxide/Mg Hydroxide (Maalox) 30 ml PO Q6H PRN PRN Reason: Heartburn or Indigestion Albuterol/Ipratropium (Duoneb) 3 ml NEB [id number] [facility] Last Admin: 05/02/17 00:07 Dose: 3 ml Amiodarone HCl (Cordarone) 400 mg PO QAM [facility] Last Admin: 05/01/17 08:04 Dose: 400 mg Benzonatate (Tessalon) 100 mg PO TID [facility] Last Admin: 05/01/17 19:45 Dose: Not Given Enoxaparin Sodium (Lovenox) 40 mg SC 0900 [facility] Last Admin: 05/02/17 07:51 Dose: 40 mg Famotidine (Pepcid) 20 mg PO BID [facility] Last Admin: 05/01/17 19:46 Dose: Not Given Guaifenesin (Mucinex) 600 mg PO Q12HR [facility] Last Admin: 05/01/17 19:46 Dose: Not Given Guaifenesin/Dextromethorphan (Robitussin Dm) 15 ml PO Q4H PRN PRN Reason: Cough Hydrocortisone Sodium Succinate (Solu-Cortef) 50 mg IVP Q12HR [facility] Stop: 05/04/17 09:01 Last Admin: 05/02/17 07:51 Dose: 50 mg Potassium Chloride 40 meq/ (Sodium Chloride) 270 mls @ 135 mls/hr IVPB ASDIR PRN PRN Reason: FOR SERUM K+ 2.5 - 3.5 Potassium Chloride 40 meq/ (Device) 100 mls @ 50 mls/hr IVPB ASDIR PRN PRN Reason: FOR SERUM K+ 2.5 - 3.5 Last Admin: 05/02/17 05:35 Dose: 100 mls Magnesium Sulfate 1 gm/ Sodium (Chloride) 102 mls @ 102 mls/hr IV PRN PRN PRN Reason: MAG LEVEL 1.4 - 2.0 Magnesium Sulfate 2 gm/ Device 100 mls @ 100 mls/hr IVPB ASDIR PRN PRN Reason: MAGNESIUM < 1.4 Last Admin: 04/24/17 17:14 Dose: 100 mls Potassium Phosphate 9 mmol/ (Sodium Chloride) 103 mls @ 25.75 mls/hr IVPB ASDIR PRN PRN Reason: Phosphate 1.0-1.8 Potassium Phosphate 12 mmol/ (Sodium Chloride) 254 mls @ 63.5 mls/hr IV ASDIR PRN PRN Reason: Serum phosphate 0.5-0.9 Potassium Phosphate 15 mmol/ (Sodium Chloride) 255 mls @ 63.75 mls/hr IV ASDIR PRN PRN Reason: Serum Phos < 0.5 Fentanyl (Fentanyl Cadd) 250 mls @ 0 mls/hr IVPB INF [facility]; Titrate PRN Reason: Protocol Stop: 05/23/17 17:19 Last Admin: 04/28/17 09:52 Dose: 250 mls Fentanyl Citrate (Fentanyl Bolus) 250 mls @ 0 mls/hr IVPB PRN PRN; As Directed PRN Reason: Breakthrough pain Stop: 05/23/17 17:19 Amiodarone HCl 450 mg/Miscellaneous Medication 1 each/ Dextrose/Water 259 mls @ 0 mls/hr IVPB INF MARVIN; As Directed PRN Reason: Protocol Last Admin: 04/26/17 15:57 Dose: 259 mls Midazolam HCl (Versed) 100 mls @ 0 mls/hr IVPB INF MARVIN; Titrate PRN Reason: Protocol Last Admin: 04/28/17 03:57 Dose: 100 mls Vancomycin HCl 750 mg/ Sodium (Chloride) 250 mls @ 250 mls/hr IVPB 08,1999 [facility] Last Admin: 05/02/17 07:51 Dose: 250 mls Levofloxacin 500 mg/ Device 100 mls @ 100 mls/hr IVPB 1999 [facility] Last Admin: 05/01/17 20:48 Dose: 100 mls Lorazepam (Ativan) 2 mg SLOW IVP Q2H PRN PRN Reason: Anxiety to achieve Agee 2-3 Stop: 05/23/17 17:19 Last Admin: 04/30/17 08:32 Dose: 2 mg Magnesium Oxide (Magnesium Oxide) 400 mg PO BIDPRN PRN PRN Reason: FOR SERUM MAG 1.4 - 2.0 Magnesium Oxide (Magnesium Oxide) 800 mg PO PRN PRN PRN Reason: FOR SERUM MAG < 1.4 Miscellaneous Medication (Pharmacy To Dose) 1 each IVPB ONE PRN PRN Reason: Pharmacy to dose Stop: 05/23/17 15:45 Miscellaneous Medication (Phos-Nak) 1 pkt PO TIDPRN PRN PRN Reason: FOR PHOS LEVEL 1.0 - 1.8 Miscellaneous Medication (Phos-Nak) 2 pkt PO TIDPRN PRN PRN Reason: FOR PHOS LEVEL 0.5 - 1.0 Last Admin: 04/25/17 06:43 Dose: 2 pkt Morphine Sulfate (Morphine) 2 mg SLOW IVP Q2H PRN PRN Reason: Breakthrough pain Stop: 05/23/17 17:19 Ccu Electrolyte (Replacement Protocol) 0 each FS PRN PRN PRN Reason: FOR ELECTROLYTE REPLACEMENT Discontinue Previous Narcotic Pain Medications And Benzodiazepines 1 each FS .ONE [facility] Stop: 05/23/17 17:19 Potassium Chloride (K-Dur) 40 meq PO ASDIR PRN PRN Reason: FOR SERUM K+ 2.5 - 3.5 Potassium Chloride (Klor-Con) 40 meq PER TUBE ASDIR PRN PRN Reason: FOR SERUM K+ 2.5-3.5 Last Admin: 05/01/17 05:45 Dose: 40 meq Propofol (Diprivan) 1,000 mg IV INF PRN; Protocol PRN Reason: TO ACHIEVE AGEE SCORE 2-3 Stop: 05/23/17 17:19 Last Admin: 04/28/17 01:12 Dose: 1,000 mg Rosuvastatin Calcium (Crestor) 5 mg PO HS [facility] Last Admin: 05/01/17 19:46 Dose: Not Given Scopolamine (Transderm Scop) 1.5 mg TD Q3D [facility] Last Admin: 04/30/17 08:32 Dose: 1.5 mg Senna (Senokot) 2 tab PO HSPRN PRN PRN Reason: Constipation Sodium Chloride (Flush - Normal Saline) 10 ml IVF Q12HR [facility] Last Admin: 05/02/17 07:52 Dose: 10 ml Sodium Chloride (Flush - Normal Saline) 10 ml IVF PRN PRN PRN Reason: Saline Flush MAR Reviewed: Yes Vital Signs: Vital Signs Temp 98.6 F 05/02/17 05:00 Pulse 85 05/02/17 00:07 Resp 20 05/02/17 00:07 BP 154/66 H 05/01/17 08:31 Pulse Ox 98 05/02/17 02:40 Intake & Output 05/01/17 05/02/17 05/02/17 18:59 06:59 18:59 Intake Total 603 528 Output Total 605 575 Balance -2 -47 Weight 149 lb 7.574 oz Intake: Intake, IV Amount 463 528 Fentanyl 20 MCG/ML 250 ml 3 @ Titrate IVPB INF [facility] Rx#:[id number] Sodium Chloride 0.9% 10 460 528 ml IVF Q12HR [facility] Rx#: [id number] Oral Supplement 30 Tube Feeding 80 Tube Irrigant 30 Output: Output, Maya 605 575 Other: Voiding Method Indwelling Catheter Indwelling Catheter Progress Note: Exam - Physical Exam Constitutional: NAD HEENT: PERRLA, sclera anicteric Deviation from normal: dry OMM Neck: no nodes, no JVD Cardiovascular: RRR Focused Respiratory Location: decreased breath sounds: Right (crackles right base) Gastrointestinal: soft, non-tender Musculoskeletal: edema present Neurological: non-focal, normal sensation, moves all 4 limbs Lymphatic: no nodes Psychiatric: normal affect Skin: no rash Progress Note: Data - Labs Result Diagrams: 05/02/17 04:45 05/02/17 04:45 Lab results: Laboratory Results 04/30/17 05/01/17 05/01/17 07:47 04:30 04:30 WBC 15.2 H RBC 3.11 L Hgb 9.9 L Hct 30.5 L MCV 98.2 MCH 31.8 H MCHC 32.4 RDW 12.1 Plt Count 294 MPV 6.4 L Neutrophils % Neutrophils % (Manual) 68 Band Neuts % (Manual) 21 H Lymphocytes % Lymphocytes % (Manual) 11 L Monocytes % Eosinophils % Basophils % Neutrophils # Lymphocytes # Monocytes # Eosinophils # Basophils # Plt Morphology Comment Appears Adequate Specimen Type ARTERIAL Puncture Site RRA Bicarbonate Actual 27.2 H ABG pH 7.47 H ABG pCO2 38.1 ABG pO2 67.3 L ABG O2 Sat Calc/Christine 96.7 ABG O2 Content 13.9 L ABG Base Excess 3.5 H ABG Hematocrit 30.9 L ABG Hemoglobin 10.3 L ABG Oxyhemoglobin 95.2 ABG Carboxyhemoglobin 1.1 ABG Methemoglobin 0.5 ABG Deoxyhemoglobin Al Test A-a O2 Gradient 170.275 H Sodium 139 140 Potassium 3.4 L 3.4 L Chloride 101 101 Ionized Calcium 1.1 L Mode of Support CPAP Spontaneous Rate 20 Inspired O2 40 Tidal Volume 400 Spontaneous Tidal Vol 361 Pressure Support 10 PEEP or CPAP 5.0 Carbon Dioxide 33 H Anion Gap 9 L BUN 28 H Creatinine 0.69 Estimated GFR (MDRD) 82 Glucose 137 H Calcium 7.8 Vancomycin Trough 05/01/17 05/01/17 05/02/17 06:45 08:30 04:45 WBC RBC Hgb Hct MCV MCH MCHC RDW Plt Count MPV Neutrophils % Neutrophils % (Manual) Band Neuts % (Manual) Lymphocytes % Lymphocytes % (Manual) Monocytes % Eosinophils % Basophils % Neutrophils # Lymphocytes # Monocytes # Eosinophils # Basophils # Plt Morphology Comment Specimen Type ARTERIAL Puncture Site L.R. Bicarbonate Actual 30.4 H ABG pH 7.50 H ABG pCO2 40.2 ABG pO2 69.3 L ABG O2 Sat Calc/Christine 97.3 ABG O2 Content 12.6 L ABG Base Excess 6.7 H ABG Hematocrit 29.7 L ABG Hemoglobin 9.3 L ABG Oxyhemoglobin 95.8 ABG Carboxyhemoglobin 1.0 ABG Methemoglobin 0.5 ABG Deoxyhemoglobin 2.6 Al Test POSITIVE A-a O2 Gradient 167.650 H Sodium 140 141 Potassium 3.3 L 3.2 L Chloride 99 105 Ionized Calcium 1.1 L Mode of Support CPAP Spontaneous Rate Inspired O2 40 Tidal Volume Spontaneous Tidal Vol Pressure Support 10 PEEP or CPAP 5.0 Carbon Dioxide 32 H Anion Gap 7 L BUN 21 H Creatinine 0.63 Estimated GFR (MDRD) Greater than 90 Glucose 99 Calcium 7.5 L Vancomycin Trough 16.2 05/02/17 04:45 WBC 11.9 H RBC 2.72 L Hgb 8.8 L Hct 26.6 L MCV 97.7 MCH 32.4 H MCHC 33.2 RDW 11.9 Plt Count 304 MPV 6.2 L Neutrophils % 88.3 H Neutrophils % (Manual) Band Neuts % (Manual) Lymphocytes % 8.0 L Lymphocytes % (Manual) Monocytes % 3.1 Eosinophils % 0.4 Basophils % 0.2 Neutrophils # 10.6 H Lymphocytes # 1.0 L Monocytes # 0.4 Eosinophils # 0.0 Basophils # 0.0 Plt Morphology Comment Specimen Type Puncture Site Bicarbonate Actual ABG pH ABG pCO2 ABG pO2 ABG O2 Sat Calc/Christine ABG O2 Content ABG Base Excess ABG Hematocrit ABG Hemoglobin ABG Oxyhemoglobin ABG Carboxyhemoglobin ABG Methemoglobin ABG Deoxyhemoglobin Al Test A-a O2 Gradient Sodium Potassium Chloride Ionized Calcium Mode of Support Spontaneous Rate Inspired O2 Tidal Volume Spontaneous Tidal Vol Pressure Support PEEP or CPAP Carbon Dioxide Anion Gap BUN Creatinine Estimated GFR (MDRD) Glucose Calcium Vancomycin Trough - Radiology Interpretation Chest x-ray Status: image reviewed by me (RLL infiltrate unchanged) Progress Note: A/P - Problems (1) Acute respiratory failure with hypoxia Current Visit: Yes Status: Acute Code(s): J96.01 - ACUTE RESPIRATORY FAILURE WITH HYPOXIA (2) Pneumonia Current Visit: Yes Status: Acute Code(s): J18.9 - PNEUMONIA, UNSPECIFIED ORGANISM Qualifiers: Pneumonia type: due to methicillin-resistant Staphylococcus aureus (MRSA) Laterality: right (3) Sepsis Current Visit: Yes Status: Acute Code(s): A41.9 - SEPSIS, UNSPECIFIED ORGANISM Qualifiers: Sepsis type: methicillin susceptible Staphylococcus aureus Qualified Code(s ): A41.01 - Sepsis due to Methicillin susceptible Staphylococcus aureus - Plan Plan: Consult PT Consult Speech for difficulty swallowing Up in chair Leave in CCU for now. Possible to IMCU later Cont IV ABX
--- NOTE | 2017-05-02 08:14 | RAD ---
PORTABLE UPRIGHT FRONTAL CHEST RADIOGRAPH: Date: 05-02-17 Comparison: 05-01-17 History: Ventilated CCU patient. FINDINGS: The endotracheal tube and nasogastric tube present on the prior have been removed. There is a right u pper extremity PICC in stable position. No pneumothorax is noted. There is dense opacity in the bilateral lung bases, right greater than left, suggesting bibasilar con solidation/collapse and bilateral pleural effusions. There are modeled areas of gas lucency within th e right lung base which could signify underlying necrotizing pneumonia or cavitary change. There is h azy increased density in the midright lung zone. IMPRESSION: Dense bibasilar opacity, right greater than left, as detailed above. Opacity within the lung bases is grossly unchanged. Endotracheal tube and nasogastric tube have been removed. POS: [facility]
[2017-05-02] MEDS: Amiodarone 200 MG TAB PO SCH (10:23)
[2017-05-02] MEDS: Famotidine 20 MG TAB PO SCH ×2 (10:24→20:34)
[2017-05-02] MEDS: Benzonatate 100 MG CAP PO SCH ×3 (10:24→20:34)
[2017-05-02] MEDS: guaiFENesin ER 600 MG TAB PO SCH ×2 (10:25→20:35)
--- NOTE | 2017-05-02 11:27 | PDOC.PN ---
- Subjective Encounter Start Date: 05/02/17 Encounter Start Time: 11:26 Subjective: alert, fatigued - Objective Resuscitation Status: Resuscitation Status FULL:Full Resuscitation MAR Reviewed: Yes Vital Signs & Weight: Vital Signs (12 hours) Temp Pulse Resp Pulse Ox 05/02/17 08:13 87 20 98 05/02/17 08:00 98.1 F 05/02/17 05:00 98.6 F 05/02/17 02:40 98 05/02/17 00:07 85 20 05/02/17 00:00 98.9 F Weight Admit Weight 132 lb Weight 149 lb 7.574 oz Most Recent Monitor Data Heart Rate from ECG 84 NIBP 132/73 NIBP BP-Mean 101 Respiration from ECG 34 SpO2 93 I&O: 05/01/17 05/02/17 05/03/17 06:59 06:59 06:59 Intake Total 2689.8 1131 250 Output Total 5255 1180 150 Balance -2565.2 -49 100 Result Diagrams: 05/02/17 04:45 05/02/17 04:45 Phys Exam - Physical Examination Constitutional: NAD Neck: no JVD rales bilat lower schultz, R>L Cardiovascular: RRR, no significant murmur Gastrointestinal: soft, positive bowel sounds Musculoskeletal: no edema Dx/Plan (1) Acute respiratory failure with hypoxia Code(s): J96.01 - ACUTE RESPIRATORY FAILURE WITH HYPOXIA Status: Resolved (2) Afib Code(s): I48.91 - UNSPECIFIED ATRIAL FIBRILLATION Status: Acute Qualifiers: Atrial fibrillation type: paroxysmal Qualified Code(s): I48.0 - Paroxysmal atrial fibrillation (3) Pneumonia Code(s): J18.9 - PNEUMONIA, UNSPECIFIED ORGANISM Status: Acute Qualifiers: Pneumonia type: due to methicillin-resistant Staphylococcus aureus (MRSA) Laterality: right (4) Chronic anemia Code(s): D64.9 - ANEMIA, UNSPECIFIED Status: Chronic (5) HTN (hypertension) Code(s): I10 - ESSENTIAL (PRIMARY) HYPERTENSION Status: Chronic Qualifiers: Hypertension type: essential hypertension Qualified Code(s): I10 - Essential (primary) hypertension (6) Hypothyroidism Code(s): E03.9 - HYPOTHYROIDISM, UNSPECIFIED Status: Chronic Qualifiers: Hypothyroidism type: unspecified Qualified Code(s): E03.9 - Hypothyroidism , unspecified (7) Lactic acid acidosis Code(s): E87.2 - ACIDOSIS Status: Resolved - Plan slow but steady improvemt, cont iv antibx, nebs -: start po nutrition -: dc iv amioderne, start po 400 daily -: reintitute thyroid replacement, etc * .
--- NOTE | 2017-05-02 19:01 | PRG ---
DATE OF SERVICE: 05/02/2017 Ms. Lei is doing well. She was extubated yesterday. No current complaints. She continues to be sinus rhythm. OBJECTIVE: VITAL SIGNS: Blood pressure 139/85, pulse 94, temperature afebrile. LUNGS: Clear to auscultation. HEART: Regular rate and rhythm. ABDOMEN: Soft, nontender, nondistended. EXTREMITIES: No edema. PERTINENT LABORATORY DATA: Hemoglobin 8.8, creatinine 0.63, white blood cell count 11.9. IMPRESSION: 1. Atrial fibrillation. 2. Pneumonia. 3. Respiratory failure. RECOMMENDATIONS: Ms. Lei appears to be making some progress. At this point, we will continue cur rent medical therapy as prescribed. From a CV standpoint, we will continue amiodarone at 400 mg p.o. q.a.m. x1 month only then discontinue. At this point, would avoid anticoagulation therapy. We will also add low dose Toprol.
[2017-05-02] MEDS: Rosuvastatin 5 MG TAB PO SCH (20:34)
[2017-05-02] MEDS: Metoprolol Tartrate 25 MG TAB PO SCH (20:37)
[2017-05-03 05:06] LABS: Anion Gap 9 mmol/L (10-20); BUN (Urea Nitrogen) 20 mg/dL (9.8-20.1); Calc. Creatinine Clearance 76 mL/min (70-130); Calcium 7.6 mg/dL (7.8-10.44); Carbon Dioxide 29 mmol/L (23-31); Chloride 106 mmol/L (98-107); Estimated GFR-MDRD Greater than 90; Glucose 115 mg/dL (83-110); Potassium 3.1 mmol/L (3.5-5.1); Sodium 141 mmol/L (136-145)
[2017-05-03] MEDS: Levothyroxine Sodium 50 MCG TAB PO SCH (05:24)
[2017-05-03] MEDS: Potassium Chloride 40 MEQ in Premix Bag 1 BAG IVPB PRN (05:24)
[2017-05-03 07:20] LABS: Vancomycin, Trough 15.5 ug/mL
--- NOTE | 2017-05-03 08:49 | PRG ---
DATE OF SERVICE: 05/03/2017 SUBJECTIVE: The patient is up in the chair, she is feeling better, but is still extremely weak and c annot do anything for herself. PHYSICAL EXAMINATION: VITAL SIGNS: Temperature is 98.1, pulse 83, blood pressure 159/69, O2 sat 95%. HEENT: Unremarkable. NECK: No JVD. CHEST: Crackles in the right base, left side clear. CARDIAC: S1 and S2 regular, no murmur. ABDOMEN: Soft, nontender. EXTREMITIES: No edema. LABORATORY DATA: Sodium 141, potassium 3.1, chloride 106, CO2 29, BUN 20, creatinine 0.6, glucose 11 5. ASSESSMENT: 1. Methicillin-resistant Staphylococcus aureus pneumonia with sepsis. 2. Severe deconditioning. PLAN: 1. Transfer to the floor 2. Continue antibiotics. 3. Needs aggressive physical therapy. She is not safe to go anywhere, but IMCU at the present time.
[2017-05-03] MEDS: Vancomycin HCl 750 MG in Sodium Chloride 0.9% 250 ML 250 ML IVPB SCH ×2 (09:49→20:41)
[2017-05-03] MEDS: Amiodarone 200 MG TAB PO SCH (09:50)
[2017-05-03] MEDS: Benzonatate 100 MG CAP PO SCH ×3 (09:50→21:40)
[2017-05-03] MEDS: Enoxaparin Sodium 40 MG/0.4 ML SYRINGE SC SCH (09:51)
[2017-05-03] MEDS: guaiFENesin ER 600 MG TAB PO SCH ×2 (09:51→21:40)
[2017-05-03] MEDS: Hydrocortisone Sod Succ/PF 100 mg/2 ml Vial IVP SCH ×2 (09:52→21:40)
[2017-05-03] MEDS: Rosuvastatin 5 MG TAB PO SCH (09:53)
[2017-05-03] MEDS: Scopolamine 1.5 mg/72 hour Patch TD SCH (09:53)
[2017-05-03] MEDS: Metoprolol Tartrate 25 MG TAB PO SCH ×2 (09:54→21:39)
[2017-05-03] MEDS: Estrogens, Conjugated 0.3 MG TAB PO SCH (11:38)
--- NOTE | 2017-05-03 17:01 | PRG ---
DATE OF SERVICE: 05/03/2017 SUBJECTIVE: Ms. Lei continues to do well. She continues to be in sinus rhythm. OBJECTIVE: VITAL SIGNS: Blood pressure 155/72, pulse 97 and respirations 20. LUNGS: Clear to auscultation. HEART: Regular rate and rhythm. ABDOMEN: Soft, nontender and nondistended. EXTREMITIES: No edema. IMPRESSION: 1. Pneumonia. 2. Atrial fibrillation. RECOMMENDATIONS: 1. Continue amiodarone 400 mg subcu p.o. q.a.m. x1 month, then we will discontinue as an outpatient. 2. Continue antibiotic therapy in rehab.
--- NOTE | 2017-05-03 20:05 | PDOC.PN ---
- Subjective Encounter Start Date: 05/03/17 Encounter Start Time: 20:00 Subjective: f/u s/p resp failure and extubated 05/01/17. Remains weak and deconditioned. -: Continues on O2 @ 3L/min NC. Tx with Vancomycin and Levaquin with MRSA PNA -: with sepsis. - Objective Resuscitation Status: Resuscitation Status FULL:Full Resuscitation MAR Reviewed: Yes Vital Signs & Weight: Vital Signs (12 hours) Temp Pulse Pulse Pulse Pulse Resp BP 05/03/17 18:43 83 16 05/03/17 14:09 88 16 05/03/17 12:00 98.7 F 05/03/17 10:42 86 87 81 159/87 H 05/03/17 08:06 BP BP Pulse Ox Pulse Ox Pulse Ox Pulse Ox 05/03/17 18:43 96 05/03/17 14:09 97 05/03/17 12:00 05/03/17 10:42 176/78 H 156/81 H 94 L 93 L 96 05/03/17 08:06 94 L Weight Admit Weight 132 lb Weight 152 lb 8.958 oz Most Recent Monitor Data Heart Rate from ECG 82 NIBP 155/72 NIBP BP-Mean 98 Respiration from ECG 32 SpO2 93 I&O: 05/02/17 05/03/17 05/04/17 06:59 06:59 06:59 Intake Total 1131 1106 550 Output Total 1180 1050 370 Balance -49 56 180 Result Diagrams: 05/02/17 04:45 05/04/17 04:50 Additional Labs: Microbiology 04/23/17 21:00 Sputum Respiratory Culture - Final Methicillin resistant S.aureus 04/23/17 13:26 Urine clean catch Urine Culture - Final 04/23/17 12:25 Venous blood - Right Arm Blood Culture - Final NO GROWTH IN 5 DAYS 04/23/17 12:24 Venous blood - Left Arm Blood Culture - Final NO GROWTH IN 5 DAYS Laboratory Tests 04/30/17 05/01/17 05/01/17 04:00 04:30 04:30 WBC 17.6 H 15.2 H Hgb 10.3 L 9.9 L Potassium 3.4 L Carbon Dioxide 33 H BUN 28 H Vancomycin Trough 05/02/17 05/03/17 04:45 06:38 WBC Hgb Potassium 3.2 L Carbon Dioxide 32 H BUN 21 H Vancomycin Trough 15.5 Radiology Reviewed by me: Yes (PCXR - dense R>L opacity in lung bases) EKG Reviewed by me: Yes (Tele - SR) Phys Exam - Physical Examination Constitutional: NAD HEENT: PERRLA, oral pharynx no lesions Neck: no JVD, supple coarse sounds in bases R>L Cardiovascular: RRR Gastrointestinal: soft, non-tender, no distention, positive bowel sounds Musculoskeletal: no edema, pulses present Neurological: normal sensation, moves all 4 limbs Skin: normal turgor, cap refill <2 seconds Dx/Plan (1) Pneumonia Code(s): J18.9 - PNEUMONIA, UNSPECIFIED ORGANISM Status: Acute Qualifiers: Pneumonia type: due to methicillin-resistant Staphylococcus aureus (MRSA) Laterality: right Comment: Continue Levaquin and Vancomycin, pulmonary support, O2 @ 3L/min (2) Sepsis Code(s): A41.9 - SEPSIS, UNSPECIFIED ORGANISM Status: Acute Qualifiers: Sepsis type: methicillin susceptible Staphylococcus aureus Qualified Code(s ): A41.01 - Sepsis due to Methicillin susceptible Staphylococcus aureus Comment: Resolving, continue tx as outlined in #1 (3) HTN (hypertension) Code(s): I10 - ESSENTIAL (PRIMARY) HYPERTENSION Status: Chronic Qualifiers: Hypertension type: essential hypertension Qualified Code(s): I10 - Essential (primary) hypertension (4) Acute respiratory failure with hypoxia Code(s): J96.01 - ACUTE RESPIRATORY FAILURE WITH HYPOXIA Status: Resolved Comment: s/p intubation with extubation on 05/01/17 - Plan alonzo catheter, continue antibiotics, PT/OT, social services coordinator, speech therapy, respiratory therapy, DVT proph w/SCDs Stable currently -: Continue Pulmonary support -: Continue Solucortef another 24h -: Duonebs q6h prn -: Continue Amiodarone 400mg daily * AM lab: BMP
[2017-05-03] MEDS ORDERED: Zolpidem Tartrate 5 MG TAB PO SCH (21:00)
[2017-05-04] MEDS ORDERED: Zolpidem Tartrate 5 MG TAB PO PRN (03:43)
[2017-05-04 05:29] LABS: Anion Gap 10 mmol/L (10-20); BUN (Urea Nitrogen) 17 mg/dL (9.8-20.1); Calc. Creatinine Clearance 74 mL/min (70-130); Calcium 7.8 mg/dL (7.8-10.44); Carbon Dioxide 26 mmol/L (23-31); Chloride 108 mmol/L (98-107); Estimated GFR-MDRD 87; Glucose 109 mg/dL (83-110); Potassium 3.3 mmol/L (3.5-5.1); Sodium 141 mmol/L (136-145)
[2017-05-04] MEDS: Levothyroxine Sodium 50 MCG TAB PO SCH (05:41)
[2017-05-04] MEDS: Vancomycin HCl 750 MG in Sodium Chloride 0.9% 250 ML 250 ML IVPB SCH ×2 (09:10→19:31)
[2017-05-04] MEDS: Amiodarone 200 MG TAB PO SCH (09:13)
[2017-05-04] MEDS: Benzonatate 100 MG CAP PO SCH ×3 (09:14→20:39)
[2017-05-04] MEDS: Metoprolol Tartrate 25 MG TAB PO SCH ×2 (09:14→20:39)
[2017-05-04] MEDS: guaiFENesin ER 600 MG TAB PO SCH ×2 (09:14→20:39)
[2017-05-04] MEDS: Enoxaparin Sodium 40 MG/0.4 ML SYRINGE SC SCH (09:15)
[2017-05-04] MEDS: Rosuvastatin 5 MG TAB PO SCH (09:16)
[2017-05-04] MEDS: Estrogens, Conjugated 0.3 MG TAB PO SCH (09:27)
[2017-05-04] MEDS: predniSONE 20 MG TAB PO SCH (09:28)
--- NOTE | 2017-05-04 09:45 | PRG ---
DATE OF SERVICE: 05/04/2017 SUBJECTIVE: Ms. Lei seems much more with it today. She is very talkative compared to what she vicente s been in the past. Her daughter is at the bedside. PHYSICAL EXAMINATION: VITAL SIGNS: Temperature is 97.8, pulse 81, respiration 16, O2 sat 97% on 3 liters, blood pressure 1 35/65. HEENT: Unremarkable. NECK: No JVD. LUNGS: A few crackles in the right base, left side clear. CARDIAC: S1 and S2 regular. ABDOMEN: Soft. EXTREMITIES: Decreased edema. LABORATORY DATA: Sodium 144, potassium 3.3, chloride 108, CO2 26, BUN 17, creatinine 0.6, glucose 10 9. ASSESSMENT: 1. Methicillin resistant Staphylococcus aureus pneumonia, status post influenzae. 2. Status post prolonged respiratory failure requiring mechanical ventilation. 3. Severe deconditioning. 4. Mild hypokalemia. PLAN: 1. We would leave in IMCU for 1 more day, continue the current antibiotics - she needs 14 full days of vancomycin. I think we can go ahead and switch her Levaquin over to oral treatment. 2. Increased activity with physical therapy as tolerated. 3. The goal would be to get her to a rehab facility at some point. The family has a great distrust for the [facility] system, so we would probably need to look towards [place] as the patient's jorden r lives in [place].
--- NOTE | 2017-05-04 11:53 | PDOC.PN ---
- Subjective Encounter Start Date: 05/04/17 Encounter Start Time: 11:30 Subjective: f/u for MRSA PNA post influenza. Continues on Levaquin and Vancomycin. -: Productive coughing but no fever or chills. Still weak and requiring -: assistance with movement and transfers. - Objective Resuscitation Status: Resuscitation Status FULL:Full Resuscitation MAR Reviewed: Yes Vital Signs & Weight: Vital Signs (12 hours) Temp Pulse Pulse Pulse Resp BP BP 05/04/17 11:13 98.5 F 85 19 05/04/17 09:59 92 83 128/60 124/58 L 05/04/17 09:06 05/04/17 09:05 107 H 40 H 05/04/17 08:00 97.8 F 81 17 05/04/17 07:21 97.8 F 81 17 05/04/17 04:00 98.9 F 94 20 05/04/17 00:00 99.6 F 95 24 H BP Pulse Ox Pulse Ox Pulse Ox 05/04/17 11:13 136/69 97 05/04/17 09:59 95 95 05/04/17 09:06 95 05/04/17 09:05 95 05/04/17 08:00 97 05/04/17 07:21 135/65 97 05/04/17 04:00 161/79 H 94 L 05/04/17 00:00 160/74 H 93 L Weight Admit Weight 132 lb Weight 156 lb Most Recent Monitor Data Heart Rate from ECG 82 NIBP 155/72 NIBP BP-Mean 98 Respiration from ECG 32 SpO2 93 I&O: 05/03/17 05/04/17 05/05/17 06:59 06:59 06:59 Intake Total 1106 1755 Output Total 1050 895 Balance 56 860 Result Diagrams: 05/02/17 04:45 05/04/17 04:50 EKG Reviewed by me: Yes (Tele - SR) Phys Exam - Physical Examination Constitutional: NAD alert, responsive HEENT: PERRLA, oral pharynx no lesions Neck: no JVD, supple basilar rhonchi Cardiovascular: RRR Gastrointestinal: soft, non-tender, no distention, positive bowel sounds Musculoskeletal: no edema, pulses present Neurological: normal sensation, moves all 4 limbs Psychiatric: A&O x 3 Skin: normal turgor, cap refill <2 seconds Dx/Plan (1) Pneumonia Code(s): J18.9 - PNEUMONIA, UNSPECIFIED ORGANISM Status: Acute Qualifiers: Pneumonia type: due to methicillin-resistant Staphylococcus aureus (MRSA) Laterality: right Comment: Continue Levaquin and Vancomycin, pulmonary support, O2 @ 3L/min (2) Sepsis Code(s): A41.9 - SEPSIS, UNSPECIFIED ORGANISM Status: Acute Qualifiers: Sepsis type: methicillin susceptible Staphylococcus aureus Qualified Code(s ): A41.01 - Sepsis due to Methicillin susceptible Staphylococcus aureus Comment: Resolving, continue tx as outlined in #1 (3) HTN (hypertension) Code(s): I10 - ESSENTIAL (PRIMARY) HYPERTENSION Status: Chronic Qualifiers: Hypertension type: essential hypertension Qualified Code(s): I10 - Essential (primary) hypertension (4) Acute respiratory failure with hypoxia Code(s): J96.01 - ACUTE RESPIRATORY FAILURE WITH HYPOXIA Status: Resolved Comment: s/p intubation with extubation on 05/01/17 - Plan plan discussed w/ family, continue antibiotics, PT/OT, social work administrator, respiratory therapy, out of bed/ambulate, DVT proph w/SCDs Stable currently -: Continue Levaquin 500mg po daily -: Continue Vancomycin -: OOB with PT -: Continue Prednisone 20mg po daily * KCL 40meq po BID * AM Lab: BMP, CBC
[2017-05-04] MEDS ORDERED: Potassium Chloride 20 MEQ TAB PO SCH (12:00)
[2017-05-04] MEDS ORDERED: Activase 2 MG VIAL CATH SCH (12:45)
[2017-05-04] MEDS ORDERED: Sterile Water 10 ML VIAL IVP SCH (12:45)
--- NOTE | 2017-05-04 15:31 | PRG ---
DATE OF SERVICE: 05/04/2017 SUBJECTIVE: Patient appears weak today. She states she overdid it yesterday. No chest pain or pres sure noted. She continues to be in sinus rhythm. PHYSICAL EXAMINATION: VITAL SIGNS: 136/65, pulse 85, temperature 98.5. LUNGS: Clear to auscultation. HEART: Regular rate and rhythm. ABDOMEN: Soft, nontender, and nondistended. EXTREMITIES: No edema. PERTINENT LABORATORY DATA: Hemoglobin 8.8, creatinine 0.65. IMPRESSION: 1. Pneumonia. 2. Atrial fibrillation. 3. Weakness. RECOMMENDATIONS: From a CV standpoint, Ms. Lei is stable. Would continue amiodarone 400 mg one p .o. q.a.m. x1 month only and then discontinue. My plan is to follow Ms. Lei as an outpatient. If you have any further questions, please do not hesitate to reconsult. We will follow peripherally.
[2017-05-04] MEDS: Potassium Chloride 20 MEQ TAB PO SCH (18:14)
[2017-05-05 05:11] LABS: Anion Gap 11 mmol/L (10-20); BUN (Urea Nitrogen) 17 mg/dL (9.8-20.1); Calc. Creatinine Clearance 76 mL/min (70-130); Carbon Dioxide 25 mmol/L (23-31); Chloride 110 mmol/L (98-107); Estimated GFR-MDRD 87; Glucose 98 mg/dL (83-110); Potassium 4.1 mmol/L (3.5-5.1); Sodium 142 mmol/L (136-145)
[2017-05-05 05:14] LABS: Band 6 % (5-11); Eosinophils 3 % (0-10); Hemoglobin 9.1 g/dL (12.0-16.0); Lymphocytes 8 % (21-51); MDiff Complete? YES; Mean Corpuscular HGB CONC 32.8 g/dL (32.0-36.0); Mean Corpuscular Hemoglobin 32.3 pg (27.0-31.0); Mean Corpuscular Volume 98.3 fl (81.0-99.0); Monocytes 5 % (0-10); Neutrophil 78 % (42-75); Platelet Count 392 thou/uL (130-400); RBC Distribution Width 12.3 % (11.5-14.5); Red Blood Cell (RBC) Count 2.82 mill/uL (4.20-5.40); White Blood Cell (WBC) Count 16.7 thou/uL (4.8-10.8)
[2017-05-05] MEDS: Levothyroxine Sodium 50 MCG TAB PO SCH (05:23)
[2017-05-05] MEDS: Metoprolol Tartrate 25 MG TAB PO SCH ×2 (08:55→20:50)
[2017-05-05] MEDS: guaiFENesin ER 600 MG TAB PO SCH ×2 (08:56→20:49)
[2017-05-05] MEDS: Potassium Chloride 20 MEQ TAB PO SCH ×2 (08:57→16:44)
[2017-05-05] MEDS: predniSONE 20 MG TAB PO SCH (08:58)
[2017-05-05] MEDS: Amiodarone 200 MG TAB PO SCH (08:58)
[2017-05-05] MEDS: Benzonatate 100 MG CAP PO SCH ×3 (08:59→20:50)
[2017-05-05] MEDS: Rosuvastatin 5 MG TAB PO SCH (08:59)
[2017-05-05] MEDS: Enoxaparin Sodium 40 MG/0.4 ML SYRINGE SC SCH (09:00)
[2017-05-05] MEDS: Estrogens, Conjugated 0.3 MG TAB PO SCH (09:00)
[2017-05-05] MEDS: Vancomycin HCl 750 MG in Sodium Chloride 0.9% 250 ML 250 ML IVPB SCH ×2 (09:01→20:49)
--- NOTE | 2017-05-05 14:53 | PDOC.PN ---
- Subjective Encounter Start Date: 05/05/17 Encounter Start Time: 13:15 Subjective: a bit lethargic, no chest pain -: mild sob+ - Objective Resuscitation Status: Resuscitation Status FULL:Full Resuscitation MAR Reviewed: Yes Vital Signs & Weight: Vital Signs (12 hours) Temp Pulse Resp BP Pulse Ox 05/05/17 11:13 97.9 F 90 24 H 136/62 92 L 05/05/17 08:35 92 L 05/05/17 08:33 97 36 H 92 L 05/05/17 08:00 97.2 F L 92 22 H 90 L 05/05/17 07:10 97.2 F L 92 22 H 160/80 H 90 L 05/05/17 04:00 89 21 H 166/79 H 92 L Weight Admit Weight 132 lb Weight 156 lb 11.2 oz Most Recent Monitor Data Heart Rate from ECG 82 NIBP 155/72 NIBP BP-Mean 98 Respiration from ECG 32 SpO2 93 I&O: 05/04/17 05/05/17 05/06/17 06:59 06:59 06:59 Intake Total 1755 1540 Output Total 895 900 Balance 860 640 Result Diagrams: 05/05/17 04:32 05/05/17 04:32 Phys Exam - Physical Examination HEENT: PERRLA, sclera anicteric Neck: no JVD, supple Respiratory: no wheezing, no rales rhonchi+ Cardiovascular: RRR, no significant murmur Gastrointestinal: soft, non-tender, positive bowel sounds Musculoskeletal: pulses present, edema present Neurological: non-focal, moves all 4 limbs Dx/Plan (1) Acute respiratory failure with hypoxia Code(s): J96.01 - ACUTE RESPIRATORY FAILURE WITH HYPOXIA Status: Resolved Comment: s/p extubation on 05/01/17 (2) Pneumonia Code(s): J18.9 - PNEUMONIA, UNSPECIFIED ORGANISM Status: Acute Qualifiers: Pneumonia type: due to methicillin-resistant Staphylococcus aureus (MRSA) Laterality: right Comment: Continue Levaquin and Vancomycin, pulmonary support, O2 @ 3L/min (3) Sepsis Code(s): A41.9 - SEPSIS, UNSPECIFIED ORGANISM Status: Acute Qualifiers: Sepsis type: methicillin susceptible Staphylococcus aureus Qualified Code(s ): A41.01 - Sepsis due to Methicillin susceptible Staphylococcus aureus Comment: Resolving, continue tx as outlined in #1 (4) HTN (hypertension) Code(s): I10 - ESSENTIAL (PRIMARY) HYPERTENSION Status: Chronic Qualifiers: Hypertension type: essential hypertension Qualified Code(s): I10 - Essential (primary) hypertension (5) Hypothyroidism Code(s): E03.9 - HYPOTHYROIDISM, UNSPECIFIED Status: Chronic Qualifiers: Hypothyroidism type: unspecified Qualified Code(s): E03.9 - Hypothyroidism , unspecified (6) Dyslipidemia Code(s): E78.5 - HYPERLIPIDEMIA, UNSPECIFIED Status: Chronic (7) Afib Code(s): I48.91 - UNSPECIFIED ATRIAL FIBRILLATION Status: Acute Qualifiers: Atrial fibrillation type: paroxysmal Qualified Code(s): I48.0 - Paroxysmal atrial fibrillation (8) Chronic anemia Code(s): D64.9 - ANEMIA, UNSPECIFIED Status: Chronic - Plan on vanc and levaquin -: nebs, steroids -: oral amiodarone daily x 30 days -: PT to mobilize as tolerated -: prognosis guarded, is deconditioned, eventual rehab if stable * . Review of Systems - Medications/Allergies Allergies/Adverse Reactions: Allergies Allergy/AdvReac Type Severity Reaction Status Date / Time No Known Allergies Allergy Verified 04/23/17 15:11 Medications: Current Medications Acetaminophen (Tylenol) 650 mg PO Q4H PRN PRN Reason: Headache/Fever or Pain Last Admin: 04/24/17 14:07 Dose: 650 mg Al Hydroxide/Mg Hydroxide (Maalox) 30 ml PO Q6H PRN PRN Reason: Heartburn or Indigestion Albuterol/Ipratropium (Duoneb) 3 ml NEB [id number] [facility] Last Admin: 05/05/17 08:33 Dose: 3 ml Amiodarone HCl (Cordarone) 400 mg PO QAM [facility] Last Admin: 05/05/17 08:58 Dose: 400 mg Benzonatate (Tessalon) 100 mg PO TID [facility] Last Admin: 05/05/17 08:59 Dose: 100 mg Enoxaparin Sodium (Lovenox) 40 mg SC 0900 [facility] Last Admin: 05/05/17 09:00 Dose: 40 mg Estrogens Conjugated (Premarin) 0.3 mg PO DAILY [facility] Last Admin: 05/05/17 09:00 Dose: 0.3 mg Guaifenesin (Mucinex) 600 mg PO Q12HR [facility] Last Admin: 05/05/17 08:56 Dose: 600 mg Guaifenesin/Dextromethorphan (Robitussin Dm) 15 ml PO Q4H PRN PRN Reason: Cough Vancomycin HCl 750 mg/ Sodium (Chloride) 250 mls @ 250 mls/hr IVPB 0800,2000 [facility] Last Admin: 05/05/17 09:01 Dose: 250 mls Levofloxacin (Levaquin) 500 mg PO DAILY [facility] Last Admin: 05/05/17 08:58 Dose: 500 mg Levothyroxine Sodium (Synthroid) 50 mcg PO 0600 [facility] Last Admin: 05/05/17 05:23 Dose: 50 mcg Metoprolol Tartrate (Lopressor) 12.5 mg PO BID [facility] Last Admin: 05/05/17 08:55 Dose: 12.5 mg Miscellaneous Medication (Pharmacy To Dose) 1 each IVPB ONE PRN PRN Reason: Pharmacy to dose Stop: 05/23/17 15:45 Potassium Chloride (K-Dur) 40 meq PO BID-[facility] Last Admin: 05/05/17 08:57 Dose: 40 meq Prednisone (Prednisone) 20 mg PO DAILY [facility] Last Admin: 05/05/17 08:58 Dose: 20 mg Rosuvastatin Calcium (Crestor) 5 mg PO DAILY [facility] Last Admin: 05/05/17 08:59 Dose: 5 mg Scopolamine (Transderm Scop) 1.5 mg TD Q3D [facility] Last Admin: 05/03/17 09:53 Dose: 1.5 mg Senna (Senokot) 2 tab PO HSPRN PRN PRN Reason: Constipation Sodium Chloride (Flush - Normal Saline) 10 ml IVF Q12HR [facility] Last Admin: 05/05/17 09:07 Dose: 10 ml Sodium Chloride (Flush - Normal Saline) 10 ml IVF PRN PRN PRN Reason: Saline Flush Last Admin: 05/05/17 09:06 Dose: 10 ml Sodium Chloride (Flush - Normal Saline) 10 ml IVF PRN PRN PRN Reason: Saline Flush Zolpidem Tartrate (Ambien) 5 mg PO HSPRN PRN PRN Reason: .INSOMNIA
--- NOTE | 2017-05-05 17:11 | PRG ---
DATE OF SERVICE: 05/05/2017 SERVICE: Pulmonary Medicine. INTERVAL HISTORY: The patient remains a little bit weak today. She has been working with physical therapy, but has yet to standup. She has been trying to sit on the side of the bed, but she does not last very long. Otherwise, she seems to make some small improvements day by day. She denies any current fevers , chills, nausea, vomiting or shortness of breath. She does have a cough, but this seems to be clearing and is no longer productive as previously it was. PHYSICAL EXAMINATION: VITAL SIGNS: Afebrile, pulse 90, blood pressure 136/62, respirations 24, saturation 92% on 3 liters nasal cannula. GENERAL: Patient is awake, alert, in no apparent distress. LUNGS: Decent air entry. There are rhonchi present, but clear with cough. Crackles are present. No wheezing is appreciated. HEART: Normal rate and regular. ABDOMEN: Soft, nontender, nondistended. Bowel sounds positive. MUSCULOSKELETAL: No cyanosis or clubbing. No pitting in the bilateral lower extremities. NEUROLOGIC: Grossly nonfocal. LABORATORY DATA: WBC 16.7, hemoglobin 9.1, and platelets 392,000. Band count seems to be falling off, the neutrophil count is stable if not improving. Basic metabolic profile looks very reassuring with a creatinine stable. Anion gap is normal as of her bicarbonate. Legionella antigen and Strep antigen are both unremarkable. Sputum from 04/23/2017 was growing MRSA. C. diff antigen and toxin are currently pending. ASSESSMENT: 1. Acute hypoxic respiratory failure secondary to influenza, followed by methicillin-resistant Staphylococcus aureus pneumonia. 2. Community acquired pneumonia. 3. Severe deconditioning. 4. Diarrhea. DISCUSSION AND PLAN: We will continue making efforts in mobilizing this patient. She will work with physical therapy and we will make an attempt to get her into a chair twice daily and increase as tolerated. C. diff antigen and toxin have been received but is currently pending. Hopefully, once we clear this, she will be a candidate for something to thicken up her stools. She will remain in the IMCU while we look for placement in LTAC Facility close to [place] to be closer to her daughter. [facility]
[2017-05-05] MEDS ORDERED: Loperamide HCl 2 MG CAP PO PRN (19:18)
[2017-05-06 05:13] LABS: Anion Gap 11 mmol/L (10-20); BUN (Urea Nitrogen) 14 mg/dL (9.8-20.1); Calc. Creatinine Clearance 75 mL/min (70-130); Calcium 7.7 mg/dL (7.8-10.44); Carbon Dioxide 22 mmol/L (23-31); Chloride 109 mmol/L (98-107); Estimated GFR-MDRD 86; Glucose 93 mg/dL (83-110); Potassium 4.6 mmol/L (3.5-5.1); Sodium 137 mmol/L (136-145)
[2017-05-06] MEDS: Levothyroxine Sodium 50 MCG TAB PO SCH (05:53)
[2017-05-06 08:15] LABS: Vancomycin, Trough 17.2 ug/mL
[2017-05-06] MEDS ORDERED: Diphenoxylate HCl/Atropine Tablet PO PRN (08:39)
[2017-05-06] MEDS: Estrogens, Conjugated 0.3 MG TAB PO SCH (09:13)
[2017-05-06] MEDS: Potassium Chloride 20 MEQ TAB PO SCH ×2 (09:14→17:56)
[2017-05-06] MEDS: Rosuvastatin 5 MG TAB PO SCH (09:14)
[2017-05-06] MEDS: Scopolamine 1.5 mg/72 hour Patch TD SCH (09:14)
[2017-05-06] MEDS: Saccharomyces boulardii 250 MG CAP PO SCH (09:14)
[2017-05-06] MEDS: Benzonatate 100 MG CAP PO SCH ×3 (09:14→20:44)
[2017-05-06] MEDS: Amiodarone 200 MG TAB PO SCH (09:15)
[2017-05-06] MEDS: predniSONE 20 MG TAB PO SCH (09:15)
[2017-05-06] MEDS: Metoprolol Tartrate 25 MG TAB PO SCH ×2 (09:15→20:46)
[2017-05-06] MEDS: guaiFENesin ER 600 MG TAB PO SCH ×2 (09:15→20:45)
[2017-05-06] MEDS: Vancomycin HCl 750 MG in Sodium Chloride 0.9% 250 ML 250 ML IVPB SCH ×2 (09:16→20:43)
[2017-05-06] MEDS: Enoxaparin Sodium 40 MG/0.4 ML SYRINGE SC SCH (09:16)
--- NOTE | 2017-05-06 12:59 | PDOC.PN ---
- Subjective Encounter Start Date: 05/06/17 Encounter Start Time: 12:55 Subjective: feels poorly.more SOB today - Objective Resuscitation Status: Resuscitation Status FULL:Full Resuscitation MAR Reviewed: Yes Vital Signs & Weight: Vital Signs (12 hours) Temp Pulse Resp BP BP BP Pulse Ox 05/06/17 11:42 99.6 F 85 20 128/56 L 91 L 05/06/17 10:00 120/62 132/75 05/06/17 08:56 92 L 05/06/17 08:52 103 H 32 H 92 L 05/06/17 08:12 98.4 F 100 24 H 94 L 05/06/17 07:00 98.4 F 100 24 H 138/73 95 05/06/17 03:46 99.4 F 94 16 130/67 98 05/06/17 02:13 93 22 H 131/71 99 Weight Admit Weight 132 lb Weight 161 lb Most Recent Monitor Data Heart Rate from ECG 82 NIBP 155/72 NIBP BP-Mean 98 Respiration from ECG 32 SpO2 93 I&O: 05/05/17 05/06/17 05/07/17 06:59 06:59 06:59 Intake Total 1540 1510 Output Total 900 1375 Balance 640 135 Result Diagrams: 05/05/17 04:32 05/06/17 04:11 Additional Labs: Microbiology 05/05/17 11:21 Stool C. difficile GDH Antigen & Toxins - Final 04/23/17 21:00 Sputum Respiratory Culture - Final Methicillin resistant S.aureus 04/23/17 13:26 Urine clean catch Urine Culture - Final 04/23/17 12:25 Venous blood - Right Arm Blood Culture - Final NO GROWTH IN 5 DAYS 04/23/17 12:24 Venous blood - Left Arm Blood Culture - Final NO GROWTH IN 5 DAYS Laboratory Tests 04/23/17 04/23/17 04/23/17 12:24 12:24 21:00 WBC 4.8 Hgb 14.4 D-Dimer 3.54 H Ur L.pneumophila Ag Negative Ur Strep pneumoniae Ag 04/23/17 04/24/17 04/25/17 21:00 03:42 04:20 WBC 2.0 L 9.4 Hgb D-Dimer Ur L.pneumophila Ag Ur Strep pneumoniae Ag NEGATIVE 04/26/17 04/28/17 05/01/17 05:35 04:00 04:30 WBC 13.7 H 15.2 H Hgb 10.5 L 9.7 L D-Dimer Ur L.pneumophila Ag Ur Strep pneumoniae Ag 05/02/17 05/05/17 04:45 04:32 WBC 11.9 H 16.7 H Hgb 8.8 L 9.1 L D-Dimer Ur L.pneumophila Ag Ur Strep pneumoniae Ag Radiology Reviewed by me: Yes (CXR-pulm vasc congestion) Phys Exam - Physical Examination mildly dyspneic HEENT: PERRLA, 2+ tonsils Neck: no JVD Respiratory: no wheezing bibsilar rales.decreased at bases Cardiovascular: RRR, no significant murmur Gastrointestinal: soft, non-tender, no distention, positive bowel sounds Musculoskeletal: no edema, pulses present Neurological: non-focal, normal sensation, moves all 4 limbs Psychiatric: normal affect, A&O x 3 Skin: no rash Dx/Plan (1) Fluid overload Code(s): E87.70 - FLUID OVERLOAD, UNSPECIFIED Status: Acute (2) Acute respiratory failure with hypoxia Code(s): J96.01 - ACUTE RESPIRATORY FAILURE WITH HYPOXIA Status: Resolved Comment: s/p extubation on 05/01/17 (3) MRSA (methicillin resistant staphylococcus aureus) pneumonia Code(s): J15.212 - PNEUMONIA DUE TO METHICILLIN RESISTANT STAPHYLOCOCCUS AUREUS Status: Acute Qualifiers: Laterality: bilateral Lung location: lower lobe of lung Qualified Code(s) : J15.212 - Pneumonia due to Methicillin resistant Staphylococcus aureus (4) Afib Code(s): I48.91 - UNSPECIFIED ATRIAL FIBRILLATION Status: Acute Qualifiers: Atrial fibrillation type: paroxysmal Qualified Code(s): I48.0 - Paroxysmal atrial fibrillation Comment: NSR on Amiodarone (5) Sepsis Code(s): A41.9 - SEPSIS, UNSPECIFIED ORGANISM Status: Acute Qualifiers: Sepsis type: methicillin susceptible Staphylococcus aureus Qualified Code(s ): A41.01 - Sepsis due to Methicillin susceptible Staphylococcus aureus Comment: Resolving, continue tx .On Vancomycin & levaquin (6) Dyslipidemia Code(s): E78.5 - HYPERLIPIDEMIA, UNSPECIFIED Status: Chronic (7) HTN (hypertension) Code(s): I10 - ESSENTIAL (PRIMARY) HYPERTENSION Status: Chronic Qualifiers: Hypertension type: essential hypertension Qualified Code(s): I10 - Essential (primary) hypertension (8) Hypothyroidism Code(s): E03.9 - HYPOTHYROIDISM, UNSPECIFIED Status: Chronic Qualifiers: Hypothyroidism type: unspecified Qualified Code(s): E03.9 - Hypothyroidism , unspecified (9) Physical deconditioning Code(s): R53.81 - OTHER MALAISE Status: Acute (10) Chronic anemia Code(s): D64.9 - ANEMIA, UNSPECIFIED Status: Chronic - Plan continue antibiotics, PT/OT, respiratory therapy, incentive spirometry, out of bed/ambulate, DVT proph w/SCDs Check BNp.ECHO w adequate EF.Mod TR? distolic dysFx. -: trial of Lasix X1.recheck CXR.? fluid Ol.? empyema -: will consult ID w regards to length of ABx. -: PCM following. -: cont OT,PT.Pt has severe deconditioning * .AM labs * C.Diff Negative. Add Florastor,Lomotil prn. Review of Systems - Review of Systems Constitutional: weakness, malaise Respiratory: Cough, Shortness of Breath, SOB with Excertion. negative: Dry, Hemoptysis, Pleuritic Pain, Sputum, Wheezing Cardiovascular: negative: chest pain, palpitations, orthopnea, paroxysmal nocturnal dyspnea, edema, light headedness, other Gastrointestinal: negative: Nausea, Vomiting, Abdominal Pain, Diarrhea, Constipation, Melena, Hematochezia, Other Genitourinary: negative: Dysuria, Frequency, Incontinence, Hematuria, Retention , Other Musculoskeletal: negative: Neck Pain, Shoulder Pain, Arm Pain, Back Pain, Hand Pain, Leg Pain, Foot Pain, Other Neurological: negative: Weakness, Numbness, Incoordination, Change in Speech, Confusion, Seizures, Other - Medications/Allergies Allergies/Adverse Reactions: Allergies Allergy/AdvReac Type Severity Reaction Status Date / Time No Known Allergies Allergy Verified 04/23/17 15:11 Medications: Current Medications Acetaminophen (Tylenol) 650 mg PO Q4H PRN PRN Reason: Headache/Fever or Pain Last Admin: 04/24/17 14:07 Dose: 650 mg Al Hydroxide/Mg Hydroxide (Maalox) 30 ml PO Q6H PRN PRN Reason: Heartburn or Indigestion Albuterol/Ipratropium (Duoneb) 3 ml NEB [id number] MARVIN Last Admin: 05/06/17 08:52 Dose: 3 ml Amiodarone HCl (Cordarone) 400 mg PO QAM [facility] Last Admin: 05/06/17 09:15 Dose: 400 mg Benzonatate (Tessalon) 100 mg PO TID [facility] Last Admin: 05/06/17 09:14 Dose: 100 mg Diphenoxylate HCl/Atropine (Lomotil) 1 tab PO Q6H PRN PRN Reason: Diarrhea/Loose Stools Enoxaparin Sodium (Lovenox) 40 mg SC 0900 [facility] Last Admin: 05/06/17 09:16 Dose: 40 mg Estrogens Conjugated (Premarin) 0.3 mg PO DAILY [facility] Last Admin: 05/06/17 09:13 Dose: 0.3 mg Furosemide (Lasix) 20 mg SLOW IVP 1300 [facility] Stop: 05/06/17 17:00 Guaifenesin (Mucinex) 600 mg PO Q12HR [facility] Last Admin: 05/06/17 09:15 Dose: 600 mg Guaifenesin/Dextromethorphan (Robitussin Dm) 15 ml PO Q4H PRN PRN Reason: Cough Vancomycin HCl 750 mg/ Sodium (Chloride) 250 mls @ 250 mls/hr IVPB 0800,2000 [facility] Last Admin: 05/06/17 09:16 Dose: 250 mls Levofloxacin (Levaquin) 500 mg PO DAILY [facility] Last Admin: 05/06/17 09:14 Dose: 500 mg Levothyroxine Sodium (Synthroid) 50 mcg PO 0600 [facility] Last Admin: 05/06/17 05:53 Dose: 50 mcg Loperamide HCl (Imodium) 2 mg PO PRN PRN PRN Reason: Diarrhea/Loose Stools Last Admin: 05/05/17 20:49 Dose: 2 mg Metoprolol Tartrate (Lopressor) 12.5 mg PO BID [facility] Last Admin: 05/06/17 09:15 Dose: 12.5 mg Miscellaneous Medication (Pharmacy To Dose) 1 each IVPB ONE PRN PRN Reason: Pharmacy to dose Stop: 05/23/17 15:45 Potassium Chloride (K-Dur) 40 meq PO BID-[facility] Last Admin: 05/06/17 09:14 Dose: 40 meq Prednisone (Prednisone) 20 mg PO DAILY [facility] Last Admin: 05/06/17 09:15 Dose: 20 mg Rosuvastatin Calcium (Crestor) 5 mg PO DAILY [facility] Last Admin: 05/06/17 09:14 Dose: 5 mg Saccharomyces Boulardii (Florastor) 250 mg PO DAILY [facility] Last Admin: 05/06/17 09:14 Dose: 250 mg Scopolamine (Transderm Scop) 1.5 mg TD Q3D [facility] Last Admin: 05/06/17 09:14 Dose: 1.5 mg Senna (Senokot) 2 tab PO HSPRN PRN PRN Reason: Constipation Sodium Chloride (Flush - Normal Saline) 10 ml IVF Q12HR [facility] Last Admin: 05/06/17 09:16 Dose: 10 ml Sodium Chloride (Flush - Normal Saline) 10 ml IVF PRN PRN PRN Reason: Saline Flush Last Admin: 05/05/17 09:06 Dose: 10 ml Sodium Chloride (Flush - Normal Saline) 10 ml IVF PRN PRN PRN Reason: Saline Flush Zolpidem Tartrate (Ambien) 5 mg PO HSPRN PRN PRN Reason: .INSOMNIA Last Admin: 05/06/17 00:27 Dose: 5 mg
[2017-05-06] MEDS ORDERED: Furosemide 20 MG/2 ML VIAL SLOW IVP SCH (13:00)
--- NOTE | 2017-05-06 13:52 | RAD ---
CHEST 1 VIEW: HISTORY: Dyspnea. Pneumonia. [place] 05/02/17. FINDINGS: Cardiac silhouette is magnified and predominantly obscured by bilateral pleural fluid and widespread parenchymal infiltrate that have increased since the previous exam. Mediastinum is midline. Right s ubclavian central venous catheter remains in place. clinical liaison leads overlie the chest. IMPRESSION: Worsening pulmonary edema and pleural fluid. POS: [facility]
--- NOTE | 2017-05-06 18:31 | PRG ---
DATE OF SERVICE: 05/06/2017 SERVICE: Pulmonary Medicine. INTERVAL HISTORY: The patient has been fine from respiratory standpoint. She is breathing comfortab ly. This morning, she had respiratory events. She got a dose of Lasix and settled down very quickly . She got up and walked a couple of steps with physical therapy and was able to bear her own weight. Outside of this, there has been no interval change to her condition. Her white count went up a lit tle bit today, but her band count is dropping. She is doing better. PHYSICAL EXAMINATION: VITAL SIGNS: Afebrile, pulse 94, blood pressure 135/69, respirations 24, saturation 95% on 3 liters nasal cannula. GENERAL: The patient is awake and alert; in no apparent distress. LUNGS: Decent air entry. Dependent crackles are minimal. There is no prolonged expiratory phase or wheezing appreciated. HEART: Normal rate and regular. ABDOMEN: Soft, nontender, and nondistended. Bowel sounds are positive. MUSCULOSKELETAL: No cyanosis or clubbing. There is trace pitting in the bilateral lower extremities . LABORATORY DATA: BNP is 284. Sputum is growing MRSA which is sensitive to vancomycin as well as oth er things. C. diff antigen and toxin from yesterday was negative. Blood cultures x2 and urine cultu re negative. IMAGING: Chest x-ray demonstrates evidence consistent with pulmonary edema and pleural effusions. ASSESSMENT: 1. Acute hypoxic respiratory failure secondary to influenza, followed by methicillin-resistant Staph ylococcus aureus pneumonia. 2. Severe deconditioning. 3. Diarrhea. 4. Acute on chronic diastolic heart failure. DISCUSSION AND PLAN: We will continue supportive care. 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 I would like for her to transition out of the hospital as soon as poss ible. Pulmonary and Critical Care will continue to follow while she remains in this location.
[2017-05-07] MEDS: Levothyroxine Sodium 50 MCG TAB PO SCH (06:25)
[2017-05-07 07:14] LABS: Anion Gap 9 mmol/L (10-20); BUN (Urea Nitrogen) 12 mg/dL (9.8-20.1); Calc. Creatinine Clearance 70 mL/min (70-130); Calcium 7.7 mg/dL (7.8-10.44); Carbon Dioxide 25 mmol/L (23-31); Chloride 105 mmol/L (98-107); Estimated GFR-MDRD 79; Glucose 92 mg/dL (83-110); Potassium 3.8 mmol/L (3.5-5.1); Sodium 135 mmol/L (136-145)
--- NOTE | 2017-05-07 08:13 | PDOC.PULPN ---
Progress Note: Subj/Obj - Subjective Date: 05/07/17 Time: 08:11 Narrative: feels better - Objective Allergies/Adverse Reactions: Allergies Allergy/AdvReac Type Severity Reaction Status Date / Time No Known Allergies Allergy Verified 04/23/17 15:11 Medications: Current Medications Acetaminophen (Tylenol) 650 mg PO Q4H PRN PRN Reason: Headache/Fever or Pain Last Admin: 04/24/17 14:07 Dose: 650 mg Al Hydroxide/Mg Hydroxide (Maalox) 30 ml PO Q6H PRN PRN Reason: Heartburn or Indigestion Albuterol/Ipratropium (Duoneb) 3 ml NEB [id number] [facility] Last Admin: 05/06/17 23:45 Dose: 3 ml Amiodarone HCl (Cordarone) 400 mg PO QAM [facility] Last Admin: 05/06/17 09:15 Dose: 400 mg Benzonatate (Tessalon) 100 mg PO TID [facility] Last Admin: 05/06/17 20:44 Dose: 100 mg Diphenoxylate HCl/Atropine (Lomotil) 1 tab PO Q6H PRN PRN Reason: Diarrhea/Loose Stools Enoxaparin Sodium (Lovenox) 40 mg SC 0900 [facility] Last Admin: 05/06/17 09:16 Dose: 40 mg Estrogens Conjugated (Premarin) 0.3 mg PO DAILY [facility] Last Admin: 05/06/17 09:13 Dose: 0.3 mg Furosemide (Lasix) 20 mg IVP ONE [facility] Guaifenesin (Mucinex) 600 mg PO Q12HR [facility] Last Admin: 05/06/17 20:45 Dose: 600 mg Guaifenesin/Dextromethorphan (Robitussin Dm) 15 ml PO Q4H PRN PRN Reason: Cough Vancomycin HCl 750 mg/ Sodium (Chloride) 250 mls @ 250 mls/hr IVPB 0800,2000 [facility] Last Admin: 05/06/17 20:43 Dose: 250 mls Levofloxacin (Levaquin) 500 mg PO DAILY [facility] Last Admin: 05/06/17 09:14 Dose: 500 mg Levothyroxine Sodium (Synthroid) 50 mcg PO 0600 [facility] Last Admin: 05/07/17 06:25 Dose: 50 mcg Loperamide HCl (Imodium) 2 mg PO PRN PRN PRN Reason: Diarrhea/Loose Stools Last Admin: 05/05/17 20:49 Dose: 2 mg Metoprolol Tartrate (Lopressor) 12.5 mg PO BID [facility] Last Admin: 05/06/17 20:46 Dose: 12.5 mg Miscellaneous Medication (Pharmacy To Dose) 1 each IVPB ONE PRN PRN Reason: Pharmacy to dose Stop: 05/23/17 15:45 Potassium Chloride (K-Dur) 40 meq PO BID-[facility] Last Admin: 05/06/17 17:56 Dose: 40 meq Prednisone (Prednisone) 10 mg PO DAILY [facility] Rosuvastatin Calcium (Crestor) 5 mg PO DAILY [facility] Last Admin: 05/06/17 09:14 Dose: 5 mg Saccharomyces Boulardii (Florastor) 250 mg PO DAILY [facility] Last Admin: 05/06/17 09:14 Dose: 250 mg Scopolamine (Transderm Scop) 1.5 mg TD Q3D [facility] Last Admin: 05/06/17 09:14 Dose: 1.5 mg Senna (Senokot) 2 tab PO HSPRN PRN PRN Reason: Constipation Sodium Chloride (Flush - Normal Saline) 10 ml IVF Q12HR [facility] Last Admin: 05/06/17 20:46 Dose: 10 ml Sodium Chloride (Flush - Normal Saline) 10 ml IVF PRN PRN PRN Reason: Saline Flush Last Admin: 05/05/17 09:06 Dose: 10 ml Sodium Chloride (Flush - Normal Saline) 10 ml IVF PRN PRN PRN Reason: Saline Flush Zolpidem Tartrate (Ambien) 5 mg PO HSPRN PRN PRN Reason: .INSOMNIA Last Admin: 05/06/17 00:27 Dose: 5 mg MAR Reviewed: Yes Vital Signs: Vital Signs Temp 99.2 F 05/07/17 04:00 Pulse 94 05/07/17 04:00 Resp 22 H 05/07/17 04:00 BP 146/73 H 05/07/17 04:00 Pulse Ox 94 L 05/07/17 04:00 Intake & Output 05/06/17 05/07/17 05/07/17 18:59 06:59 18:59 Intake Total 660 Output Total 1250 Balance -590 Weight 157 lb Intake: Intake, IV Amount 260 Oral 400 Output: Output, Maya 1100 Stool 150 Other: Voiding Method Indwelling Catheter Indwelling Catheter # Bowel Movement Diapers 1 Progress Note: Exam - Physical Exam Constitutional: NAD HEENT: PERRLA Cardiovascular: RRR Focused Respiratory Location: decreased breath sounds: Right, Left Gastrointestinal: soft, no distention Musculoskeletal: no edema Neurological: non-focal, moves all 4 limbs Lymphatic: no nodes Skin: no rash Progress Note: Data - Labs Result Diagrams: 05/05/17 04:32 05/07/17 06:40 Lab results: Laboratory Results 05/06/17 05/06/17 05/06/17 04:11 07:21 13:02 Sodium 137 Potassium 4.6 Chloride 109 H Carbon Dioxide 22 L Anion Gap 11 BUN 14 Creatinine 0.66 Estimated GFR (MDRD) 86 Glucose 93 Calcium 7.7 L B-Natriuretic Peptide 284.1 H Vancomycin Trough 17.2 05/07/17 06:40 Sodium 135 L Potassium 3.8 Chloride 105 Carbon Dioxide 25 Anion Gap 9 L BUN 12 Creatinine 0.71 Estimated GFR (MDRD) 79 Glucose 92 Calcium 7.7 L B-Natriuretic Peptide Vancomycin Trough - Radiology Interpretation Chest x-ray Status: image reviewed by me Additional comments: cxr from 05/06 shows pulm edema and layering effusions Progress Note: A/P - Problems (1) Acute respiratory failure with hypoxia Current Visit: Yes Status: Resolved Code(s): J96.01 - ACUTE RESPIRATORY FAILURE WITH HYPOXIA (2) Pneumonia Current Visit: Yes Status: Acute Code(s): J18.9 - PNEUMONIA, UNSPECIFIED ORGANISM Qualifiers: Pneumonia type: due to methicillin-resistant Staphylococcus aureus (MRSA) Laterality: right (3) Sepsis Current Visit: Yes Status: Acute Code(s): A41.9 - SEPSIS, UNSPECIFIED ORGANISM Qualifiers: Sepsis type: methicillin susceptible Staphylococcus aureus Qualified Code(s ): A41.01 - Sepsis due to Methicillin susceptible Staphylococcus aureus - Plan Plan: decrease steroids give one dose lasix increase activity dc levaquin continue vanc for now
[2017-05-07] MEDS ORDERED: Furosemide 20 MG/2 ML VIAL IVP SCH (08:30)
[2017-05-07] MEDS: Rosuvastatin 5 MG TAB PO SCH (09:48)
[2017-05-07] MEDS: Benzonatate 100 MG CAP PO SCH ×3 (09:48→20:01)
[2017-05-07] MEDS: Estrogens, Conjugated 0.3 MG TAB PO SCH (09:48)
[2017-05-07] MEDS: Metoprolol Tartrate 25 MG TAB PO SCH ×2 (09:49→20:01)
[2017-05-07] MEDS: Saccharomyces boulardii 250 MG CAP PO SCH (09:49)
[2017-05-07] MEDS: Potassium Chloride 20 MEQ TAB PO SCH ×2 (09:49→17:27)
[2017-05-07] MEDS: Amiodarone 200 MG TAB PO SCH (09:49)
[2017-05-07] MEDS: guaiFENesin ER 600 MG TAB PO SCH ×2 (09:49→20:01)
[2017-05-07] MEDS: predniSONE 20 MG TAB PO SCH (09:50)
[2017-05-07] MEDS: Enoxaparin Sodium 40 MG/0.4 ML SYRINGE SC SCH (09:51)
[2017-05-07 09:52] LABS: #Eosinphils 0.1 thou/uL (0.0-0.7); #Lymphocytes 1.2 thou/uL (1.20-3.40); #Monocytes 0.5 thou/uL (0.11-0.59); #Neutrophils 11.5 thou/uL (1.40-6.50); %Basophils 0.3 % (0.0-1.0); %Eosinophils 0.4 % (0.0-10.0); %Monocytes 3.5 % (0.0-10.0); %Neutrophils 86.7 % (42.0-75.0); Mean Corpuscular HGB CONC 31.8 g/dL (32.0-36.0); Mean Corpuscular Hemoglobin 31.3 pg (27.0-31.0); Mean Corpuscular Volume 98.5 fl (81.0-99.0); Mean Platelet Volume 6.2 fL (7.4-10.4); Platelet Count 339 thou/uL (130-400); RBC Distribution Width 13.1 % (11.5-14.5); Red Blood Cell (RBC) Count 2.86 mill/uL (4.20-5.40); White Blood Cell (WBC) Count 13.3 thou/uL (4.8-10.8)
--- NOTE | 2017-05-07 12:09 | CON ---
DATE OF CONSULTATION: 05/07/2017 REASON FOR CONSULTATION: Question regarding duration of treatment for pneumonia. HISTORY OF PRESENT ILLNESS: An 82-year-old, appears to be the first admission to this hospital at least for the past few years, who presents with a history of hypertension, hypothyroidism, and diagnosed with influenza infection, apparently was type B. I do not have any documentation of that. She was given Tamiflu and then continued to feel unwell with then development of brown sputum , expectoration, cough, and dyspnea. She was assessed in the emergency room with initial pressure 140/60, pulse 96, respirations 30, temperature 99.1, O2 sat 94%. Heart exam was normal. Lungs with scattered inspiratory crackles, right side. Abdomen was not remarkable. She was lethargic, but oriented. Initial labs, chest x-ray showed a right middle lobe infiltrate and CT confirmed that as well. Liver enzymes normal, albumin 3.9, white cell count 4.8 with 47% bands. The patient was given IV vancomycin and levofloxacin. The only microbiology results include a MRSA respiratory culture of the sputum sample, showed 0-5 epithelial cells, but few wbcs, no organisms seen, many MRSA organisms with broadly sensitive strain of MRSA except for amoxicillin and oxacillin, cefaclor, cefepime, and ceftazidime. Currently, Ms. Lei is awake. She is oriented. She is still tachypneic, coughing intermittently, still feeling unwell, but better than on admission. No headaches. No back pain , no visual symptoms, sore throat, odynophagia, dysphagia, no toothache. Mild dyspnea, no chest pain, no abdominal pain or diarrhea. Voiding with assistance of a Maya catheter. PAST MEDICAL HISTORY: Hypertension, hypothyroidism, and hyperlipidemia. PAST SURGICAL HISTORY: Hysterectomy, cataracts. ALLERGIES: None. SOCIAL HISTORY: Never smoker. FAMILY HISTORY: Cirrhosis in father. MEDICATIONS: Vancomycin, IV fluids, saccharomyces, potassium, inhalers, furosemide, metoprolol. PHYSICAL EXAMINATION: VITAL SIGNS: T-max 99.7, blood pressure 150/76, pulse 96, respirations 19, O2 sat 92% on 3 liters. SKIN EXAM: With peripheral IV access. No areas of skin breakdown. Maya catheter. No lymphadenopathy. HEENT: Ocular movements are conjugate. Sclerae are white. Pupils are equal and reactive. Conjunctivae normal. Oral cavity with quite a few teeth in place. There is florid oral thrush noted. NECK: Supple, no jugular venous distention. LUNGS: With symmetric coarse rhonchi and inspiratory crackles, right lung field symmetric air entry. HEART: S1, S2, regular rate without murmurs. ABDOMEN: Soft. Not distended or tender. No ascites. No bladder distention. EXTREMITIES: No joint inflammatory activity. No back tenderness. Pulses are 1 + in dorsalis pedis. Plantar responses are flexure. NEUROLOGIC: Cognitive function appears to be intact. LABORATORY DATA: Legionella pneumonia antigen and strep pneumonia antigen negative. White cell count 16.7, hemoglobin 9.1, platelets 392, and creatinine 0.71. BNP 284. ASSESSMENT: 1. Hypertension. 2. Hypothyroidism. 3. Influenza B infection, recently treated. 4. Right middle lobe pneumonia. DISCUSSION: The organism isolated from sputum is not necessarily the culprit. The positive predictive value of sputum cultures in the determination of pneumonia etiology is not better than 50%, i.e.: a coin toss. In this case other community-acquired pathogens could be responsible for this process. We would restart levofloxacin and continue vancomycin. The MRSA strain is broadly susceptible and could envision discharge planning with levofloxacin for completion of therapy in the outpatient setting. No evidence of necrotizing features or empyema development at this point in time. No other areas of involvement and the patient was not bacteremic. ADDENDUM: The duration of therapy will be around 2-3 weeks according to clinical improvement. Follow up CRP, CBC results as well. It could be lengthened depending on progress of those endpoint measures. MTDD
[2017-05-07] MEDS: Vancomycin HCl 750 MG in Sodium Chloride 0.9% 250 ML 250 ML IVPB SCH ×2 (12:47→20:00)
--- NOTE | 2017-05-07 15:17 | PDOC.PN ---
- Subjective Encounter Start Date: 05/07/17 Encounter Start Time: 15:16 Subjective: feels much better today.daughter at bedside. -: still weak and coughing bu not as SOB today - Objective Resuscitation Status: Resuscitation Status FULL:Full Resuscitation MAR Reviewed: Yes Vital Signs & Weight: Vital Signs (12 hours) Temp Pulse Resp BP Pulse Ox 05/07/17 12:10 98.8 F 88 24 H 133/59 L 97 05/07/17 08:49 92 L 05/07/17 08:46 96 19 92 L 05/07/17 08:00 97.2 F L 102 H 19 155/76 H 91 L 05/07/17 07:29 99.2 F 94 22 H 92 L 05/07/17 04:00 99.2 F 94 22 H 146/73 H 94 L Weight Admit Weight 132 lb Weight 157 lb Most Recent Monitor Data Heart Rate from ECG 82 NIBP 155/72 NIBP BP-Mean 98 Respiration from ECG 32 SpO2 93 I&O: 05/06/17 05/07/17 05/08/17 06:59 06:59 06:59 Intake Total 1510 660 Output Total 1375 1250 Balance 135 -590 Result Diagrams: 05/07/17 06:40 05/07/17 06:40 Additional Labs: Microbiology 05/05/17 11:21 Stool C. difficile GDH Antigen & Toxins - Final 04/23/17 21:00 Sputum Respiratory Culture - Final Methicillin resistant S.aureus 04/23/17 13:26 Urine clean catch Urine Culture - Final 04/23/17 12:25 Venous blood - Right Arm Blood Culture - Final NO GROWTH IN 5 DAYS 04/23/17 12:24 Venous blood - Left Arm Blood Culture - Final NO GROWTH IN 5 DAYS Laboratory Tests 05/06/17 13:02 B-Natriuretic Peptide 284.1 H Phys Exam - Physical Examination Constitutional: NAD sitting up in chair ,looks better but still pale HEENT: PERRLA, moist MMs, sclera anicteric, oral pharynx no lesions Neck: no JVD Respiratory: no wheezing, no rales decreased at bases Cardiovascular: RRR, no significant murmur Gastrointestinal: soft, non-tender, no distention, positive bowel sounds Musculoskeletal: no edema, pulses present Neurological: non-focal, normal sensation, moves all 4 limbs Psychiatric: normal affect, A&O x 3 Skin: no rash Dx/Plan (1) Fluid overload Code(s): E87.70 - FLUID OVERLOAD, UNSPECIFIED Status: Acute (2) Acute respiratory failure with hypoxia Code(s): J96.01 - ACUTE RESPIRATORY FAILURE WITH HYPOXIA Status: Resolved Comment: s/p extubation on 05/01/17 (3) MRSA (methicillin resistant staphylococcus aureus) pneumonia Code(s): J15.212 - PNEUMONIA DUE TO METHICILLIN RESISTANT STAPHYLOCOCCUS AUREUS Status: Acute Qualifiers: Laterality: bilateral Lung location: lower lobe of lung Qualified Code(s) : J15.212 - Pneumonia due to Methicillin resistant Staphylococcus aureus (4) Afib Code(s): I48.91 - UNSPECIFIED ATRIAL FIBRILLATION Status: Acute Qualifiers: Atrial fibrillation type: paroxysmal Qualified Code(s): I48.0 - Paroxysmal atrial fibrillation Comment: NSR on Amiodarone (5) Sepsis Code(s): A41.9 - SEPSIS, UNSPECIFIED ORGANISM Status: Acute Qualifiers: Sepsis type: methicillin susceptible Staphylococcus aureus Qualified Code(s ): A41.01 - Sepsis due to Methicillin susceptible Staphylococcus aureus Comment: Resolving, continue tx .On Vancomycin & levaquin (6) Dyslipidemia Code(s): E78.5 - HYPERLIPIDEMIA, UNSPECIFIED Status: Chronic (7) HTN (hypertension) Code(s): I10 - ESSENTIAL (PRIMARY) HYPERTENSION Status: Chronic Qualifiers: Hypertension type: essential hypertension Qualified Code(s): I10 - Essential (primary) hypertension (8) Hypothyroidism Code(s): E03.9 - HYPOTHYROIDISM, UNSPECIFIED Status: Chronic Qualifiers: Hypothyroidism type: unspecified Qualified Code(s): E03.9 - Hypothyroidism , unspecified (9) Physical deconditioning Code(s): R53.81 - OTHER MALAISE Status: Acute (10) Chronic anemia Code(s): D64.9 - ANEMIA, UNSPECIFIED Status: Chronic - Plan plan discussed w/ family, PT/OT, health social work professor, respiratory therapy, incentive spirometry, out of bed/ambulate, DVT proph w/SCDs daughetr requesting referral to Rehab in [place].CM updated -: cont vancomycin.Levaquin per ID.appreciate input. -: Lasix X1 for mild fluid overload. -: WBC trending down.monitor.PCCM following-appreciate input -: cont Po steroids.Home meds as below. on BB and statin * . Review of Systems - Review of Systems Constitutional: weakness, malaise. negative: fever, chills, sweats, other Respiratory: Cough, SOB with Excertion. negative: Dry, Shortness of Breath, Hemoptysis, Pleuritic Pain, Sputum, Wheezing Cardiovascular: negative: chest pain, palpitations, orthopnea, paroxysmal nocturnal dyspnea, edema, light headedness, other Gastrointestinal: negative: Nausea, Vomiting, Abdominal Pain, Diarrhea, Constipation, Melena, Hematochezia, Other Genitourinary: negative: Dysuria, Frequency, Incontinence, Hematuria, Retention , Other Musculoskeletal: negative: Neck Pain, Shoulder Pain, Arm Pain, Back Pain, Hand Pain, Leg Pain, Foot Pain, Other Neurological: negative: Weakness, Numbness, Incoordination, Change in Speech, Confusion, Seizures, Other - Medications/Allergies Allergies/Adverse Reactions: Allergies Allergy/AdvReac Type Severity Reaction Status Date / Time No Known Allergies Allergy Verified 04/23/17 15:11 Medications: Current Medications Acetaminophen (Tylenol) 650 mg PO Q4H PRN PRN Reason: Headache/Fever or Pain Last Admin: 04/24/17 14:07 Dose: 650 mg Al Hydroxide/Mg Hydroxide (Maalox) 30 ml PO Q6H PRN PRN Reason: Heartburn or Indigestion Albuterol/Ipratropium (Duoneb) 3 ml NEB [id number] [facility] Last Admin: 05/07/17 08:46 Dose: 3 ml Amiodarone HCl (Cordarone) 400 mg PO QAM [facility] Last Admin: 05/07/17 09:49 Dose: 400 mg Benzonatate (Tessalon) 100 mg PO TID [facility] Last Admin: 05/07/17 09:48 Dose: 100 mg Diphenoxylate HCl/Atropine (Lomotil) 1 tab PO Q6H PRN PRN Reason: Diarrhea/Loose Stools Enoxaparin Sodium (Lovenox) 40 mg SC 0900 [facility] Last Admin: 05/07/17 09:51 Dose: 40 mg Estrogens Conjugated (Premarin) 0.3 mg PO DAILY [facility] Last Admin: 05/07/17 09:48 Dose: 0.3 mg Fluconazole (Diflucan) 100 mg PO DAILY [facility] Guaifenesin (Mucinex) 600 mg PO Q12HR [facility] Last Admin: 05/07/17 09:49 Dose: 600 mg Guaifenesin/Dextromethorphan (Robitussin Dm) 15 ml PO Q4H PRN PRN Reason: Cough Vancomycin HCl 750 mg/ Sodium (Chloride) 250 mls @ 250 mls/hr IVPB 0800,1999 [facility] Last Admin: 05/07/17 12:47 Dose: 250 mls Levofloxacin (Levaquin) 750 mg PO 0600 [facility] Levothyroxine Sodium (Synthroid) 50 mcg PO 0600 [facility] Last Admin: 05/07/17 06:25 Dose: 50 mcg Loperamide HCl (Imodium) 2 mg PO PRN PRN PRN Reason: Diarrhea/Loose Stools Last Admin: 05/05/17 20:49 Dose: 2 mg Metoprolol Tartrate (Lopressor) 12.5 mg PO BID [facility] Last Admin: 05/07/17 09:49 Dose: 12.5 mg Miscellaneous Medication (Pharmacy To Dose) 1 each IVPB ONE PRN PRN Reason: Pharmacy to dose Stop: 05/23/17 15:45 Potassium Chloride (K-Dur) 40 meq PO BID[facility] Last Admin: 05/07/17 09:49 Dose: 40 meq Prednisone (Prednisone) 10 mg PO DAILY [facility] Last Admin: 05/07/17 09:50 Dose: 10 mg Rosuvastatin Calcium (Crestor) 5 mg PO DAILY [facility] Last Admin: 05/07/17 09:48 Dose: 5 mg Saccharomyces Boulardii (Florastor) 250 mg PO DAILY [facility] Last Admin: 05/07/17 09:49 Dose: 250 mg Scopolamine (Transderm Scop) 1.5 mg TD Q3D [facility] Last Admin: 05/06/17 09:14 Dose: 1.5 mg Senna (Senokot) 2 tab PO HSPRN PRN PRN Reason: Constipation Sodium Chloride (Flush - Normal Saline) 10 ml IVF Q12HR [facility] Last Admin: 05/07/17 12:47 Dose: 10 ml Sodium Chloride (Flush - Normal Saline) 10 ml IVF PRN PRN PRN Reason: Saline Flush Last Admin: 05/05/17 09:06 Dose: 10 ml Sodium Chloride (Flush - Normal Saline) 10 ml IVF PRN PRN PRN Reason: Saline Flush Zolpidem Tartrate (Ambien) 5 mg PO HSPRN PRN PRN Reason: .INSOMNIA Last Admin: 05/06/17 00:27 Dose: 5 mg
[2017-05-07] MEDS: Nystatin 500,000 UNITS/5 ML UDCUP SSW SCH (18:22)
[2017-05-08 05:37] LABS: #Eosinphils 0.1 thou/uL (0.0-0.7); #Lymphocytes 0.9 thou/uL (1.20-3.40); #Monocytes 0.5 thou/uL (0.11-0.59); #Neutrophils 12.6 thou/uL (1.40-6.50); %Eosinophils 0.4 % (0.0-10.0); %Lymphocytes 6.3 % (21.0-51.0); %Monocytes 3.6 % (0.0-10.0); %Neutrophils 89.7 % (42.0-75.0); Hemoglobin 9.4 g/dL (12.0-16.0); Mean Corpuscular HGB CONC 32.2 g/dL (32.0-36.0); Mean Corpuscular Hemoglobin 31.5 pg (27.0-31.0); Mean Corpuscular Volume 97.8 fl (81.0-99.0); Platelet Count 302 thou/uL (130-400); RBC Distribution Width 12.9 % (11.5-14.5); White Blood Cell (WBC) Count 14.1 thou/uL (4.8-10.8)
[2017-05-08 05:44] LABS: Anion Gap 11 mmol/L (10-20); BUN (Urea Nitrogen) 14 mg/dL (9.8-20.1); Calc. Creatinine Clearance 71 mL/min (70-130); Calcium 7.7 mg/dL (7.8-10.44); Carbon Dioxide 22 mmol/L (23-31); Chloride 105 mmol/L (98-107); Estimated GFR-MDRD 80; Glucose 97 mg/dL (83-110); Potassium 3.8 mmol/L (3.5-5.1); Sodium 134 mmol/L (136-145)
[2017-05-08] MEDS: Levothyroxine Sodium 50 MCG TAB PO SCH (06:10)
[2017-05-08] MEDS: Rosuvastatin 5 MG TAB PO SCH (08:48)
[2017-05-08] MEDS: Vancomycin HCl 750 MG in Sodium Chloride 0.9% 250 ML 250 ML IVPB SCH (08:48)
[2017-05-08] MEDS: Potassium Chloride 20 MEQ TAB PO SCH (08:49)
[2017-05-08] MEDS: Benzonatate 100 MG CAP PO SCH ×3 (08:49→15:16)
[2017-05-08] MEDS: Saccharomyces boulardii 250 MG CAP PO SCH (08:49)
[2017-05-08] MEDS: predniSONE 20 MG TAB PO SCH (08:49)
[2017-05-08] MEDS: Nystatin 500,000 UNITS/5 ML UDCUP SSW SCH ×2 (08:49→15:16)
[2017-05-08] MEDS: Amiodarone 200 MG TAB PO SCH (08:49)
[2017-05-08] MEDS: Enoxaparin Sodium 40 MG/0.4 ML SYRINGE SC SCH (08:50)
[2017-05-08] MEDS: Metoprolol Tartrate 25 MG TAB PO SCH (08:50)
[2017-05-08] MEDS: guaiFENesin ER 600 MG TAB PO SCH (08:50)
[2017-05-08] MEDS: Estrogens, Conjugated 0.3 MG TAB PO SCH (08:50)
[2017-05-08] MEDS ORDERED: Fluconazole 100 MG TAB PO SCH (09:00)
--- NOTE | 2017-05-08 12:41 | PRG ---
DATE OF SERVICE: 05/08/2017 SUBJECTIVE: She is complaining weakness and also dry nose. OBJECTIVE: VITAL SIGNS: Temperature 98.6, pulse 101, respiration 24, O2 sat 98% on 3 liters, blood pressure 151 /71. HEENT: Unremarkable. NECK: No JVD. CHEST: Fairly clear without wheezing. CARDIAC: S1 and S2 regular. ABDOMEN: Soft. EXTREMITIES: Decreased edema. LABORATORY DATA: White blood count 14, hematocrit 29.3, platelet count 302. Sodium 134, potassium 3 .8, chloride 105, CO2 22, BUN 14, creatinine 0.7, glucose 97. ASSESSMENT: Methicillin-resistant Staphylococcus aureus pneumonia, post-influenza. PLAN: Transfer to the medical floor. Ultimately, she needs to have some type of rehab before going home. The family seems adamant that they will not pursue inpatient rehab or inpatient skilled nursin g placement. I think the patient needs to prove that she can do okay on the floor with less intense care for being distress.
[2017-05-08 14:46] VITALS: BMI 26.3
[2017-05-08 15:16] VITALS: BP 159/79; TEMP 99.6
--- NOTE | 2017-05-08 15:16 | PDOC.PN ---
- Subjective Encounter Start Date: 05/08/17 Encounter Start Time: 15:15 Subjective: feels better.still very weak -: discussed w daughter at bedside.do not want her to be transferred out of CC -: would rather take her home.declined rehab once again - Objective Resuscitation Status: Resuscitation Status FULL:Full Resuscitation MAR Reviewed: Yes Vital Signs & Weight: Vital Signs (12 hours) Temp Pulse Resp BP BP Pulse Ox 05/08/17 12:18 105 H 18 05/08/17 11:10 99.8 F H 121 H 24 H 154/75 H 93 L 05/08/17 11:05 99.4 F 05/08/17 08:00 98.6 F 101 H 24 H 97 05/08/17 07:41 98.6 F 101 H 24 H 151/71 H 98 05/08/17 06:57 107 H 18 05/08/17 04:18 98.6 F 98 20 155/70 H 98 Weight Admit Weight 132 lb 14.4 oz Weight 153 lb 4 oz Most Recent Monitor Data Heart Rate from ECG 82 NIBP 155/72 NIBP BP-Mean 98 Respiration from ECG 32 SpO2 93 I&O: 05/07/17 05/08/17 05/09/17 06:59 06:59 06:59 Intake Total 660 500 Output Total 1250 1200 150 Balance -590 -700 -150 Result Diagrams: 05/08/17 04:55 05/08/17 04:55 Additional Labs: Microbiology 05/05/17 11:21 Stool C. difficile GDH Antigen & Toxins - Final 04/23/17 21:00 Sputum Respiratory Culture - Final Methicillin resistant S.aureus 04/23/17 13:26 Urine clean catch Urine Culture - Final 04/23/17 12:25 Venous blood - Right Arm Blood Culture - Final NO GROWTH IN 5 DAYS 04/23/17 12:24 Venous blood - Left Arm Blood Culture - Final NO GROWTH IN 5 DAYS Laboratory Tests 04/23/17 04/23/17 21:00 21:00 Ur L.pneumophila Ag Negative Ur Strep pneumoniae Ag NEGATIVE Phys Exam - Physical Examination Constitutional: NAD sitting up in chair HEENT: PERRLA, moist MMs, sclera anicteric, oral pharynx no lesions Neck: no nodes, no JVD, supple, full ROM Respiratory: no wheezing, no rales, no rhonchi Cardiovascular: RRR, no significant murmur Gastrointestinal: soft, non-tender, no distention, positive bowel sounds Musculoskeletal: no edema, pulses present Neurological: non-focal, normal sensation, moves all 4 limbs Psychiatric: normal affect, A&O x 3 Skin: no rash Dx/Plan (1) Fluid overload Code(s): E87.70 - FLUID OVERLOAD, UNSPECIFIED Status: Acute Comment: Chr Diastolic CHF suspected (2) Acute respiratory failure with hypoxia Code(s): J96.01 - ACUTE RESPIRATORY FAILURE WITH HYPOXIA Status: Resolved Comment: s/p extubation on 05/01/17 (3) MRSA (methicillin resistant staphylococcus aureus) pneumonia Code(s): J15.212 - PNEUMONIA DUE TO METHICILLIN RESISTANT STAPHYLOCOCCUS AUREUS Status: Acute Qualifiers: Laterality: bilateral Lung location: lower lobe of lung Qualified Code(s) : J15.212 - Pneumonia due to Methicillin resistant Staphylococcus aureus (4) Afib Code(s): I48.91 - UNSPECIFIED ATRIAL FIBRILLATION Status: Acute Qualifiers: Atrial fibrillation type: paroxysmal Qualified Code(s): I48.0 - Paroxysmal atrial fibrillation Comment: NSR on Amiodarone (5) Sepsis Code(s): A41.9 - SEPSIS, UNSPECIFIED ORGANISM Status: Acute Qualifiers: Sepsis type: methicillin susceptible Staphylococcus aureus Qualified Code(s ): A41.01 - Sepsis due to Methicillin susceptible Staphylococcus aureus Comment: Resolving, continue tx .On Vancomycin & levaquin (6) Dyslipidemia Code(s): E78.5 - HYPERLIPIDEMIA, UNSPECIFIED Status: Chronic (7) HTN (hypertension) Code(s): I10 - ESSENTIAL (PRIMARY) HYPERTENSION Status: Chronic Qualifiers: Hypertension type: essential hypertension Qualified Code(s): I10 - Essential (primary) hypertension (8) Hypothyroidism Code(s): E03.9 - HYPOTHYROIDISM, UNSPECIFIED Status: Chronic Qualifiers: Hypothyroidism type: unspecified Qualified Code(s): E03.9 - Hypothyroidism , unspecified (9) Physical deconditioning Code(s): R53.81 - OTHER MALAISE Status: Acute (10) Chronic anemia Code(s): D64.9 - ANEMIA, UNSPECIFIED Status: Chronic - Plan continue antibiotics, PT/OT, respiratory therapy, incentive spirometry, out of bed/ambulate, DVT proph w/SCDs discussed w ID.cont PO Levaquin on DC.Home o2 arranged for chr CHF -: pt famliy adamant to take her home and not rehab.pt requires rehab -: for this reason pt remains very high risk of re admission -: daughter does not want transfer to medical floor either.pt doesnot need CCU -: will DC home w HH.pt & daughter agreeable & happy w decision. * . Review of Systems - Review of Systems Constitutional: weakness, malaise Respiratory: SOB with Excertion. negative: Cough, Dry, Shortness of Breath, Hemoptysis, Pleuritic Pain, Sputum, Wheezing Cardiovascular: negative: chest pain, palpitations, orthopnea, paroxysmal nocturnal dyspnea, edema, light headedness, other Gastrointestinal: negative: Nausea, Vomiting, Abdominal Pain, Diarrhea, Constipation, Melena, Hematochezia, Other Genitourinary: negative: Dysuria, Frequency, Incontinence, Hematuria, Retention , Other Musculoskeletal: negative: Neck Pain, Shoulder Pain, Arm Pain, Back Pain, Hand Pain, Leg Pain, Foot Pain, Other Neurological: negative: Weakness, Numbness, Incoordination, Change in Speech, Confusion, Seizures, Other - Medications/Allergies Allergies/Adverse Reactions: Allergies Allergy/AdvReac Type Severity Reaction Status Date / Time No Known Allergies Allergy Verified 04/23/17 15:11 Medications: Current Medications Acetaminophen (Tylenol) 650 mg PO Q4H PRN PRN Reason: Headache/Fever or Pain Last Admin: 04/24/17 14:07 Dose: 650 mg Al Hydroxide/Mg Hydroxide (Maalox) 30 ml PO Q6H PRN PRN Reason: Heartburn or Indigestion Albuterol/Ipratropium (Duoneb) 3 ml NEB [id number] [facility] Last Admin: 05/08/17 12:18 Dose: 3 ml Amiodarone HCl (Cordarone) 400 mg PO QAM [facility] Last Admin: 05/08/17 08:49 Dose: 400 mg Benzonatate (Tessalon) 100 mg PO TID [facility] Last Admin: 05/08/17 15:16 Dose: 100 mg Diphenoxylate HCl/Atropine (Lomotil) 1 tab PO Q6H PRN PRN Reason: Diarrhea/Loose Stools Enoxaparin Sodium (Lovenox) 40 mg SC 0900 [facility] Last Admin: 05/08/17 08:50 Dose: 40 mg Estrogens Conjugated (Premarin) 0.3 mg PO DAILY [facility] Last Admin: 05/08/17 08:50 Dose: 0.3 mg Fluconazole (Diflucan) 100 mg PO DAILY [facility] Last Admin: 05/08/17 08:50 Dose: 100 mg Guaifenesin (Mucinex) 600 mg PO Q12HR [facility] Last Admin: 05/08/17 08:50 Dose: 600 mg Guaifenesin/Dextromethorphan (Robitussin Dm) 15 ml PO Q4H PRN PRN Reason: Cough Vancomycin HCl 750 mg/ Sodium (Chloride) 250 mls @ 250 mls/hr IVPB 0800,1999 [facility] Last Admin: 05/08/17 08:48 Dose: 250 mls Levofloxacin (Levaquin) 750 mg PO 0600 [facility] Last Admin: 05/08/17 06:10 Dose: 750 mg Levothyroxine Sodium (Synthroid) 50 mcg PO 0600 [facility] Last Admin: 05/08/17 06:10 Dose: 50 mcg Loperamide HCl (Imodium) 2 mg PO PRN PRN PRN Reason: Diarrhea/Loose Stools Last Admin: 05/05/17 20:49 Dose: 2 mg Metoprolol Tartrate (Lopressor) 12.5 mg PO BID [facility] Last Admin: 05/08/17 08:50 Dose: 12.5 mg Miscellaneous Medication (Pharmacy To Dose) 1 each IVPB ONE PRN PRN Reason: Pharmacy to dose Stop: 05/23/17 15:45 Nystatin (Mycostatin) 500,000 units SSW QID [facility] Last Admin: 05/08/17 15:16 Dose: 500,000 units Potassium Chloride (K-Dur) 40 meq PO BID-[facility] Last Admin: 05/08/17 08:49 Dose: 40 meq Prednisone (Prednisone) 10 mg PO DAILY [facility] Last Admin: 05/08/17 08:49 Dose: 10 mg Rosuvastatin Calcium (Crestor) 5 mg PO DAILY [facility] Last Admin: 05/08/17 08:48 Dose: 5 mg Saccharomyces Boulardii (Florastor) 250 mg PO DAILY [facility] Last Admin: 05/08/17 08:49 Dose: 250 mg Scopolamine (Transderm Scop) 1.5 mg TD Q3D [facility] Last Admin: 05/06/17 09:14 Dose: 1.5 mg Senna (Senokot) 2 tab PO HSPRN PRN PRN Reason: Constipation Sodium Chloride (Flush - Normal Saline) 10 ml IVF Q12HR [facility] Last Admin: 05/08/17 08:51 Dose: 10 ml Sodium Chloride (Flush - Normal Saline) 10 ml IVF PRN PRN PRN Reason: Saline Flush Last Admin: 05/05/17 09:06 Dose: 10 ml Sodium Chloride (Flush - Normal Saline) 10 ml IVF PRN PRN PRN Reason: Saline Flush Zolpidem Tartrate (Ambien) 5 mg PO HSPRN PRN PRN Reason: .INSOMNIA Last Admin: 05/06/17 00:27 Dose: 5 mg
--- NOTE | 2017-05-09 11:08 | DIS ---
DATE OF ADMISSION: 04/23/2017 DATE OF DISCHARGE: 05/08/2017 CONDITION AT THE TIME OF DISCHARGE: Stable. PRIMARY CARE PHYSICIAN: Edward Montague D.O. DISCHARGE DISPOSITION: Home with home health with [facility]. DISCHARGE DIAGNOSES: 1. Acute hypoxic respiratory failure. 2. Pneumonia, likely methicillin-resistant Staphylococcus aureus. 3. Sepsis. 4. Hypertension. 5. Hypothyroidism. 6. Dyslipidemia. 7. Atrial fibrillation. 8. Chronic anemia. 9. Significant deconditioning. 10. Fluid overload, likely flash pulmonary edema, resolved. DISCHARGE MEDICATIONS: Crestor 5 mg daily, Synthroid 50 mcg daily, Premarin 0.3 mg daily, Medrol Dos epak, Mucinex 600 mg p.o. b.i.d., Florastor 250 mg p.o. daily, Lopressor 12.5 mg p.o. b.i.d., Levaqui n 750 mg p.o. daily for 2 more weeks, DuoNebs as needed, Diflucan 100 mg p.o. daily for 7 days, Karin haydee Perles as needed, amiodarone 400 mg in the morning. IN-HOUSE CONSULTATIONS: 1. Cardiology, Dr. Giordano. 2. Infectious Disease, Dr. Dodson. 3. Pulmonary Critical Care Medicine, Dr. Beach. PROCEDURES DONE: In the hospital include, 1. CT angio of the chest upon admission, which is negative for any pulmonary embolism, but showed co nsolidation in the middle lobe due to pneumonia and multifocal ground glass opacities. 2. Multiple chest x-rays, most recent on 05/06/2017, which showed pulmonary edema. 3. Insertion of the PICC line and subsequent removal prior to discharge. 4. Transthoracic echocardiogram which showed EF of 60%-65% with normal right ventricular size, left atrium normal, right atrium normal, moderate mitral regurgitation and mild to moderate tricuspid regu rgitation. HISTORY OF PRESENT ILLNESS: Ms. Lei is an 82-year-old female with past medical history of hyperte nsion, dyslipidemia, and hypothyroidism who presented to the emergency room with complaints of fever, weakness, and malaise. She gave history of finishing up Tamiflu course as an outpatient. She had a lso finished steroids before she presented to the hospital. Upon presentation, her chest x-ray showe d right middle lobe pneumonia. Upon presentation, EKG showed normal sinus rhythm. Her sodium was lo w at 125. Serum bicarbonate was 18, BUN 17, creatinine 0.8, lactic acid 2.6. She had a white blood cell count of 4.8 with 47% bands. She was initially admitted to [facility] for acute hypoxic respiratory f ailure due to right-sided pneumonia. She was started on broad spectrum [facility]. Please see admission history and physical for further details. HOSPITAL COURSE: The patient was seen by Dr. Beach in the [facility]. She was continued on IV fluids an d IV antibiotics and BiPAP as needed. She was extremely weak. A PICC line was done due to poor IV a ccess and the need for long-term IV antibiotics. Cultures were obtained. Her blood and urine cultur es remained negative. Sputum culture was sent which showed MRSA. Because of this, she was started o n vancomycin and continued on Levaquin. Eventually, the patient was stabilized in terms of her hypox ic respiratory failure. She developed atrial fibrillation with rapid ventricular rate in the hospital. She was started on am iodarone drip, which helped convert her back to sinus rhythm and she remained in sinus rhythm since. Cardiology was consulted and echo was done. Echo results showed possible diastolic chronic congesti ve heart failure because of mitral and tricuspid regurgitation. Dr. Buckner initially saw the patient a nd recommended changing the amiodarone to oral, which was done and the patient remained stable on mindy t. The plan is to continue amiodarone at 400 mg for one month and then follow up with Cardiology as an outpatient. Dr. Giordano followed the patient along afterwards. She did not have any reoccurren ce of the atrial fibrillation. Eventually, the patient was stabilized and ID was consulted with regards to the antibiotics. Dr. Tl quiroga saw the patient and his recommendations were to continue oral antibiotics post discharge. Please note that the patient has finished almost 2 weeks of IV vancomycin here. Dr. Dodson suggested that th e MRSA in the sputum is most likely not a true result, as the sputum cultures are notorious to be fal se positive. However, this MRSA was sensitive to Levaquin, so eventually she was transitioned to ora l Levaquin for discharge. The patient's family was rather difficult and despite all the physicians involved advising that she s hould go to rehab, they decided to take her home with home health. However, I gave them the option t o keep her here another night or so for monitoring over at the medical floor, but they were vehementl y declining her transfer out of the critical care unit. Because the patient was hemodynamically stab le and did not require critical care stay and the family would not let me transfer her to any other f elizabeth in the hospital and they did not want her to go to the rehab, she was discharged home with home health. Because of this, she remains very high risk for readmission as she is extremely weak and wou ld have benefited from rehabilitation stay. Prior to discharge, she was cleared by Dr. Beach and Liberty Dodson as well. She was seen and examined. Discharge plan was discussed with her daughter in the room. She verbalized understanding. Please see hospitalist progress note from the date of discharge for further details. The patient will follow up with Cardiology, Dr. Giordano, as well as ID, Dr. Dodson as well as Pulmonary Medicine, Dr. Beach as an outpatient and she will also follow up with he r primary care physician. Total time spent in the discharge of this patient is 38 minutes.
--- NOTE | 2017-05-09 21:21 | EKG ---
Test Reason : Blood Pressure : / mmHG Vent. Rate : 099 BPM Atrial Rate : 099 BPM P-R Int : 148 ms QRS Dur : 066 ms QT Int : 346 ms P-R-T Axes : 054 019 062 degrees QTc Int : 444 ms Normal sinus rhythm Low voltage QRS Borderline ECG When compared with ECG of 06-MAY-2017 12:09, (Unconfirmed) Previous ECG has undetermined rhythm, needs review T wave inversion no longer evident in Anterior leads Confirmed by ROSA GUARDADO ([id number]) on 05/09/2017 9:20:36 PM Referred By: ANNE MARIE Confirmed By:ROSA GUARDADO
--- NOTE | 2017-05-12 16:10 | EKG ---
Test Reason : Blood Pressure : / mmHG Vent. Rate : 098 BPM Atrial Rate : 098 BPM P-R Int : 140 ms QRS Dur : 066 ms QT Int : 306 ms P-R-T Axes : 035 -04 101 degrees QTc Int : 390 ms Sinus rhythm with Premature atrial complexes Nonspecific ST and T wave abnormality Abnormal ECG Confirmed by ELVIA FU M.D. ([id number]), production editor RASHARD MORENO ([id number]) on 05/12/2017 4:09:42 PM Referred By: TANK Confirmed By:ELVIA FU M.D.
== END 2017-05-08 18:17 | disposition home health service (06) | DRG 870 ==
LOC: ERS 11:50 → IMCU/EMU 13:17 → CCU 17:41 → IMCU/EMU 05-03 13:07
PROVIDERS: ADMIT Internal Medicine; ATTEND Internal Medicine
PROC: 5A1955Z Respiratory Ventilation, Greater than 96 Consecutive Hours (ICD-10-PCS; principal; 2017-04-23)
PROC: 0BH17EZ Insertion of Endotracheal Airway into Trachea, Via Natural or Artificial Opening (ICD-10-PCS; 2017-04-23)
PROC: 02HV33Z Insertion of Infusion Device into Superior Vena Cava, Percutaneous Approach (ICD-10-PCS; 2017-04-26)
PROC: 02PY33Z Removal of Infusion Device from Great Vessel, Percutaneous Approach (ICD-10-PCS; 2017-05-08)
DX: A41.01 Sepsis due to Methicillin susceptible Staphylococcus aureus (principal); J96.01 Acute respiratory failure with hypoxia; J15.212 Pneumonia due to Methicillin resistant Staphylococcus aureus; I50.33 Acute on chronic diastolic (congestive) heart failure; E87.2 Acidosis; E87.70 Fluid overload, unspecified; I48.0 Paroxysmal atrial fibrillation; I11.0 Hypertensive heart disease with heart failure; E83.39 Other disorders of phosphorus metabolism; I08.1 Rheumatic disorders of both mitral and tricuspid valves; D64.9 Anemia, unspecified; E78.5 Hyperlipidemia, unspecified; E03.9 Hypothyroidism, unspecified; R19.7 Diarrhea, unspecified; E87.6 Hypokalemia
CPT/HCPCS: 36415; 36416; 36569; 71045; 71275; 80048; 80053; 80202; 82550; 82805; 83605; 83735; 83880; 84100; 85007; 85025; 85027; 85060; 85379; 87040; 87070; 87077; 87086; 87186; 87205; 87324; 87449; 87899; 93005; 93010; 93306; 94002; 94003; 94640; 94660; 94760; 96361; 96374; A4216; C1751; G8978-GP-CM; G8979-GP-CK; G8987-GO-CM; G8988-GO-CK; G8996-GN-CK; G8997-GN-CH; J0282; J0692; J1160; J1644; J1650; J1720; J1940; J1956; J2060; J2250; J2543; J2704; J2997; J3010; J3370; J3411; J3475; J3480; J7050; J7070; J7620; J7626; S0028